=== PATIENT | female | born 1945 | race American Indian/Alaskan Native ===

== ENCOUNTER 2016-08-13 12:09 | Inpatient (IN) | payer MEDICARE ==
[2016-08-13 14:55] LABS: Hematocrit 26.5 % (30.3-42.9); Hemoglobin 8.6 gm/dl (10.1-14.3); Mean Corpuscular HGB Conc 32 % (30-34); Mean Corpuscular Volume 76 fl (79-97); Platelet Count 342 K/mm3 (140-440); Red Cell Distribution Width 17.2 % (13.2-15.2)
[2016-08-13 15:03] LABS: Mean Corpuscular Hemoglobin 25 pg (28-32); White Blood Count 27.7 K/mm3 (4.5-11.0)
[2016-08-13 15:06] LABS: Albumin 3.2 g/dL (3.9-5); Albumin/Globulin Ratio 0.7 %; BUN/Creatinine Ratio 19.54; Bilirubin,Total 0.2 mg/dL (0.1-1.2); Calcium 9.3 mg/dL (8.4-10.2); Potassium 5.6 mmol/L (3.6-5.0); Total Protein 7.5 g/dL (6.3-8.2)
--- NOTE | 2016-08-13 15:52 | Admit Criteria Form ---
Admission Criteria Documentation: RENAL FAILURE, ACUTE Clinical Indications for Admission to Inpatient Care ( Place 'X' for any and all applicable criteria): Admission is indicated for ALL (if I & II) or III of the following [A](2)(3)(4)( 5)(6)(7): [X ]I. Acute renal failure as indicated by ANY ONE of the following: [ X]a) A 3-fold rise in serum creatinine from baseline [X]b) Serum creatinine greater than 4 mg/dL (354 micromoles/L) with an acute rise greater than 0.5 mg/dL (44.2 micromoles/L) [ ]c) Reduction of more than 75% in estimated glomerular filtration rate from baseline [ ]d) Estimated glomerular filtration rate less than 35 mL/min/1.73m2 (0.59mL/sec/1.73m2)in a child up to 18 years of age [ ]e) Anuria indicated by ALL of the following: [ ]i) Adequate volume status [ ]ii) Cessation of urine output indicated by ANY ONE of the following: [ ]1) Urine output less than 0.3 mL/kg/hr for 24 hours [ ]2) Anuria (urine output less than 0.1 mL/kg/ hr) for 12 hours [X ] II. Renal failure cannot be managed in an outpatient setting or observational care setting as indicating by ANY ONE of the following: [ ]a) Altered mental status that is severe or persistent [ ]b) Volume overload or Respiratory distress (eg, clinically significant pulmonary edema) that is severe or persistent [ ]c) Cardiac arrhythmias of immediate concern [ ]d) Hemodynamic instability [X ]e) Clinically significant electrolyte abnormality that requires inpatient care (eg, hyperkalemia with severe ECG findings)[B] [ ]f) Clinically significant metabolic abnormality (eg, acidosis) that is severe or persistent [ ]g) Acute treatment of renal failure (eg, renal replacement therapy) not feasible or appropriate in observational care setting [ ]h) Clinical situation too unstable or uncertain (eg, inadequate urine output, ongoing decline in renal function, etiology unclear) [ ]i) Necessary support and caregiver ability to comply with outpatient treatment cannot be arranged in observation care timeframe (eg, within 24 hours) [ ]j) Other significant finding or clinical condition judged not to be within scope of observation care [ ]III.General contraindications and/or Inappropriate clinical situations for Observational Care in patients with Acute Renal Failure, when ANY ONE of the following is required: [ ]a) Prediction of prolongation of LOS based on ANY ONE of the following may be considered as a contraindication for observational care 2, 3, 4, 5, 6, 7, 8 , 9, 10, 11 [ ]i) Age > 65 yrs. [ ]ii) Patient arriving by ambulance [ ]iii) Patient with high acuity [ ]iv) Patient requiring vital sign monitoring [ ]v) Patient on IV medication [ ]b) Systolic blood pressures 180mmHg 3,12 [ ]c) Patient with altered mental status including delirium and other alteration of consciousness, (3) [ ]d) Patient whose discharge disposition will be to a [facility] home or rehabilitation home should not be managed in Emergency Department Observation Unit. CMS rule requires 3 days hospital stay before such placement.3,13 [ ]e) Patient with failure to thrive due to broad array of etiologies 3, 16,17 [ ]f) Inability to ambulate 3,14 Extended stay beyond goal length of stay may be needed for(13) [ ]a) Continuing uremic complications [ ]b) Care for comorbidities [ ]c) acute renal failure [ ]d) Need for dialysis The original [employer] content created by [employer] has been revised. The portions of the content which have been revised are identified through the use of italic text or in bold, and [facility] has neither reviewed nor approved the modified material. All other unmodified content is copyright [employer]. Please see references footnoted in the original [facility] edition 2016 Admission Criteria Met: Yes
[2016-08-13 16:19] LABS: Blastocytes % (Manual) 0 %
[2016-08-13 16:20] LABS: Basophils % (Manual) 0 % (0.0-1.8); Eosinophils % (Manual) 0 % (0.0-4.3)
[2016-08-13 16:21] LABS: Anisocytosis 1+; Diff Status Complete; Elliptocytes 1+; Hypochromasia 1+; Platelet Estimate Consistent w Auto
[2016-08-13] MEDS ORDERED: NEO-SYNEPHRINE 1 MG, NACL P/F VIAL (10 ML) 9.9 ML IJ**NOT IV ONE (16:52)
[2016-08-13 16:59] LABS: Bacteria,Urine 4+ /HPF (Negative); Bilirubin,Urine NEG (Negative); Blood,Urine MOD (Negative); Ketones,Urine NEG (Negative); Leukocyte Esterase,Urine LG (Negative); Mucus,Urine FEW /HPF; Nitrite,Urine NEG (Negative); Urobilinogen,Urine < 2.0 mg/dL (<2.0)
[2016-08-13] MEDS ORDERED: MORPHINE IV ONE (17:52)
[2016-08-13] MEDS ORDERED: KIONEX PO ONE (17:56)
--- NOTE | 2016-08-13 17:58 | Emergency Department Report ---
HPI - General Chief Complaint: Pain General Time Seen by Provider: 08/13/16 13:45 - HPI HPI: The patient is a 71-year-old female presents for evaluation of abdominal pain and generalized myalgias. The patient reports suprapubic abdominal pain since yesterday, cramping and sharp in quality, moderate to severe, worse with urination. The patient denies CP, dyspnea, vomiting, diarrhea, blood in the stool, dark tarry stool, hematuria, flank pain, genital discharge, inability to pass flatus. ED Past Medical Hx - Past Medical History Previous Medical History?: Yes - Social History Smoking Status: Unknown if ever smoked Substance Use Type: None ED Review of Systems ROS: Stated complaint: ABD PAIN Other details as noted in HPI Constitutional: denies: fever ENT: denies: throat or neck pain Respiratory: denies: cough, shortness of breath Cardiovascular: denies: chest pain Endocrine: denies unexplained weight loss or gain Gastrointestinal: reports abdominal pain denies: nausea Genitourinary: denies: VD Musculoskeletal: denies: leg swelling Skin: denies: rash Neurological: denies: headache Hematological/Lymphatic: denies: easy bleeding or easy bruising Psych: denies sadness or hopelessness Physical Exam - Physical Exam Vital Signs: Vital Signs 08/13/16 08/13/16 12:42 16:06 Temperature 97.9 F 98.1 F Pulse Rate 88 70 Respiratory 22 Rate Blood Pressure 146/70 Blood Pressure 160/101 [Left] O2 Sat by Pulse 100 98 Oximetry Physical Exam: General: well-nourished, well-developed, no acute distress Head: Normocephalic, atraumatic Eyes: normal sclera ENT: Mucous membranes are pale and dry Neck: trachea midline, neck supple, No neck stiffness, no cervical adenopathy Respiratory: Breath sounds equal bilaterally, no wheezing, rales, or rhonchi Cardio: S1 and S2 present, no murmurs, rubs, gallops, capillary refill is delayed Abdomen: Normoactive bowel sounds, soft abdomen, suprapubic tenderness to palpation present, no rigidity, no guarding or rebound tenderness Musc: No pitting edema Skin: No rash Neuro: no facial drooping Psych: flat affect, withdrawn, decreased speech fluency ED Course Vital Signs 08/13/16 08/13/16 12:42 16:06 Temperature 97.9 F 98.1 F Pulse Rate 88 70 Respiratory 22 Rate Blood Pressure 146/70 Blood Pressure 160/101 [Left] O2 Sat by Pulse 100 98 Oximetry ED Medical Decision Making - Lab Data Result diagrams: 08/13/16 14:30 08/13/16 14:30 - Medical Decision Making The patient was seen and examined by myself. The patient is placed on a equipment monitor phototypesetting and continuous pulse ox. On initial evaluation, the patient was found to be in no distress. Evaluation orders were placed. The patient is given IV morphine for pain. Lab results reveal elevated urine WBC 131, positive leukocyte esterase, consistent with acute UTI, significantly elevated creatinine 4, and elevated potassium level. The patient given 1 L normal saline fluid bolus for treatment of dehydration and renal insufficiency, she is given Kayexalate for treatment of hyperkalemia, and IV Rocephin for treatment of UTI. The on-call hospitalist service was contacted. They agreed to admit the patient for further treatment and close monitoring. The ED admit order was placed. The patient was admitted in guarded condition. Critical care attestation.: If time is entered above; I have spent that time in minutes in the direct care of this critically ill patient, excluding procedure time. ED Disposition Clinical Impression: Acute UTI (urinary tract infection), Acute hyperkalemia, Dehydration Acute renal failure Qualifiers: Acute renal failure type: unspecified Qualified Code(s): N17.9 - Acute kidney failure, unspecified Disposition: OP ADMITTED IP TO THIS HOSP Is pt being admited?: Yes Does the pt Need Aspirin: Yes Condition: Stable Time of Disposition: 17:07
[2016-08-13] MEDS ORDERED: BABY ASPIRIN PO ONE (17:59)
[2016-08-13] MEDS ORDERED: ROCEPHIN/NS 1 GM/50 ML 1 GM/50 ML BAG IV ONE (18:00)
[2016-08-13] MEDS ORDERED: NACL 0.9% 1000 ML 1,000 ML IV ONE (18:55)
[2016-08-13] MEDS ORDERED: ZOFRAN IV PRN (19:59)
--- NOTE | 2016-08-13 20:14 | History and Physical Report ---
History of Present Illness Date of examination: 08/13/16 Date of admission: 08/13/16 18:19 Chief complaint: Weakness History of present illness: Patient is 71 yo woman from [facility] with a plethora of co-morbidites (no prior records in EMR) who presents with failure to thrive, weakness and refusing to eat. At this time she is not giving any history. She just looks me. Medications and Allergies Allergies Allergy/AdvReac Type Severity Reaction Status Date / Time No Known Allergies Allergy Unverified 08/13/16 15:50 Active Meds: Active Medications Acetaminophen (Tylenol) 650 mg PO Q6H PRN PRN Reason: Non Cardiac Pain or Temp>100.5 Acetaminophen/Hydrocodone Bitart (Ava 5/325) 1 each PO Q4H PRN PRN Reason: Pain, Moderate (4-6) Dextrose/Sodium Chloride (D5ns) 1,000 mls @ 125 mls/hr IV DIRECT JEAN PIERRE Piperacillin Sod/Tazobactam Sod (Zosyn/Ns 4.5gm/100ml) mls @ 200 mls/hr IV Q8HR JEAN PIERRE PRN Reason: Protocol Ondansetron HCl (Zofran) 4 mg IV Q4H PRN PRN Reason: Nausea And Vomiting Review of Systems ROS unobtainable: due to mental status Exam - Physical Exam Narrative exam: GEN: severe cachetic, i believe the bmi is wrong, NAD, AWAKE, ALERT, ORIENTATED 1, she thinks the year is 2019 HEENT: NCAT, PERRL, EOMI, OP CLEAR, suncken temples NECK: SUPPLE, NO THYROMEGALY, NO JVD, NO LAD CVS: regular tachycardia, NORMAL S1S2 LUNGS/CHEST: CTA B, NORMAL CHEST EXPANSION B, GOOD AIR ENTRY B ABD: distended, suprapubic tenderness GBS, NO REBOUND OR GUARDING EXT/SKIN: NO SIGNIFICANT EDEMA OR RASH NEURO: CN 2-12 GROSSLY INTACT, NOt following commands PSY: CALM - Constitutional Vitals: Temp Pulse Resp BP Pulse Ox 98.7 F 75 21 169/57 94 08/13/16 18:25 08/13/16 18:25 08/13/16 19:10 08/13/16 19:10 08/13/16 19:10 Results - Labs CBC & Chem 7: 08/13/16 14:30 08/13/16 14:30 Assessment and Plan Patient is 71 yo woman from [facility] with a plethora of co-morbidites (no prior records in [facility] EMR) who presents with failure to thrive, weakness and refusing to eat. At this time she is not giving any history. She just looks me. Per long-term records she has history of falling, gait abnormality, CVA, acute renal failure, hypotension hypertension retention of urine, DVT or leg, dyslipidemia, allergic retinitis, hypomagnesemia, GERD, rheumatoid arthritis, rhabdomyolysis, hypernatremia, metabolic encephalopathy, bladder neck obstruction, hydronephrosis, UTI, moderate protein calorie malnutrition, cachexia and anemia. 1. UTI with sepsis: iv zosyn, and cultures 2. Acute encephalopathy 3. ARF: place [facility], get renal us 4. Abd. distension: ct ab pelvis, xray from nursing shows a pelvic mass 5. Hyperkalemia, mild given kayexalate: recheck in am
[2016-08-13] MEDS ORDERED: MORPHINE ONE (20:43)
[2016-08-13] MEDS ORDERED: ZOSYN/NS 4.5GM/100ML 100 ML IV SCH (22:00)
--- NOTE | 2016-08-13 22:12 | Cat Scan Report ---
FINAL REPORT PROCEDURE: CT ABDOMEN PELVIS WO CON TECHNIQUE: Computerized axial tomography of the abdomen and pelvis was performed without intravenous contrast. This study is performed without intravascular contrast material and its sensitivity for abdominal and pelvic pathology, including neoplasms, inflammation, abscess, free fluid, thrombosis, arterial dissection and infarction, is reduced compared with a contrast enhanced study. HISTORY: abd pain COMPARISON: No prior studies are available for comparison. FINDINGS: Likely areas of atelectasis and scarring are seen in the lower lungs. There is mild subcutaneous emphysema in the left lower breast. No definite subcutaneous emphysema is seen in the abdomen and no free intraperitoneal air is identified. The evaluation is limited as there is massive dilation of the urinary bladder which measures 16.8 x 23.2 x 13.0 cm. No bladder wall thickening is seen. The distended bladder has prominent mass effect upon bowel loops displacing them and there is likely effacement of bowel loops in the left side of the abdomen. There increased air within bowel loops and there may be partial colonic obstruction from the dilated bladder as no air or fecal material is seen in the rectosigmoid colon or much of the lower descending colon. Prominent bilateral hydronephrosis is seen which may be from reflux but could be compressive phenomenon from the enlarged bladder. Spleen and liver display no abnormalities. No gallbladder abnormality is seen. No pancreatic abnormality is seen. Adrenal glands and abdominal aorta are normal in size. There is a minimally displaced fracture of the posterior aspect of the right 12th rib. IMPRESSION: Prominent dilation of the urinary bladder is seen without wall thickening. There is associated prominent bilateral hydronephrosis which could be from reflux or possibly a compressive phenomenon near the UVJ. There is likely at least partial obstruction of the rectosigmoid colon due to the distended bladder and increased air is seen within small bowel loops and large bowel loops elsewhere. There is a small amount of subcutaneous emphysema in the inferior left side of the breast of uncertain etiology There is a mildly displaced fracture of the posterior aspect of the right 12th rib.
--- NOTE | 2016-08-13 22:32 | Ultrasound Report ---
FINAL REPORT PROCEDURE: US RENAL BILAT TECHNIQUE: Real-time sonography in multiple planes of the kidneys, ureters and urinary bladder was performed with image documentation. CPT 49581 HISTORY: aRF COMPARISON: CT exam from the same day FINDINGS: RIGHT kidney: Prominent hydronephrosis. Length: 11.9 cm. LEFT kidney: Prominent hydronephrosis. Length: 11cm. Bladder: Probably dilated up to 20.3 x 13.2 x 15.4 cm. In the inferior aspect of the bladder there may be a hypovascular mass. There is questionable eccentric wall thickening to the urinary bladder seen on CT study posteriorly and on the left inferiorly. IMPRESSION: Possible mass is seen in the lower bladder. Less likely this is debris. Prominent bilateral hydronephrosis is seen.
[2016-08-14] MEDS: ZOSYN/NS 2.25 GM/50ML 2.25 GM/50 ML BAG IV SCH ×2 (00:28→16:22)
[2016-08-14] MEDS: D5NS 1,000 ML IV SCH (00:29)
[2016-08-14] MEDS ORDERED: BABY ASPIRIN ONE (00:40)
[2016-08-14] MEDS ORDERED: KIONEX ONE (00:40)
[2016-08-14] MEDS: NORCO 5/325 PO PRN (00:48)
[2016-08-14 05:13] LABS: Hematocrit 25.1 % (30.3-42.9); Hemoglobin 8.2 gm/dl (10.1-14.3); Mean Corpuscular HGB Conc 33 % (30-34); Mean Corpuscular Volume 77 fl (79-97); Platelet Count 320 K/mm3 (140-440); Red Blood Count 3.28 M/mm3 (3.65-5.03); Red Cell Distribution Width 17.9 % (13.2-15.2)
[2016-08-14 05:18] LABS: Mean Corpuscular Hemoglobin 25 pg (28-32); White Blood Count 26.7 K/mm3 (4.5-11.0)
[2016-08-14 05:33] LABS: BUN/Creatinine Ratio 17.8; Calcium 8.9 mg/dL (8.4-10.2); Chloride 97.5 mmol/L (98-107); Potassium 5.2 mmol/L (3.6-5.0)
--- NOTE | 2016-08-14 09:12 | XRay Report ---
ABDOMINAL SERIES: INDICATION: Abdominal pain. COMPARISON: None similar at this institution. FINDINGS: Abdominal series, 3 radiographs, demonstrate a large, approximately 25 x 20 cm hazy suspected mass occupying the entire pelvis and much of the abdomen inferiorly, rising to about L3 level. It also appears to displace the bowel loops. Visualized bowel gas pattern is nonobstructive. No pneumatosis or pneumoperitoneum. Atherosclerotic vascular calcifications noted. Chest radiograph demonstrates normal cardiomediastinal silhouette, aortic knob calcifications and clear lungs, given the inspiration. EKG leads. Demineralized bones with multilevel spinal degenerative changes. CONCLUSION: 1. Large soft tissue mass within the lower abdomen and pelvis noted displacing the bowel loops, as detailed above, and may be further characterized with CT, as warranted. 2. Few other incidental findings, as described. Thank you for the opportunity to participate in this patient's care.
--- NOTE | 2016-08-14 19:50 | Progress Note ---
Assessment and Plan - Patient Problems (1) Sepsis Current Visit: Yes Status: Acute Qualifiers: Sepsis type: S Plan to address problem: Sepsis protocol, IV abx, blood cultures, supportive care, (2) Acute UTI (urinary tract infection) Current Visit: Yes Status: Acute Plan to address problem: IV abx, (3) Acute renal failure Current Visit: Yes Status: Acute Qualifiers: Acute renal failure type: unspecified Qualified Code(s): N17.9 - Acute kidney failure, unspecified Plan to address problem: IVF replacement, monitor uop q shift, (4) DVT prophylaxis Current Visit: Yes Status: Acute History Interval history: Pt lying in bed, chronically ill appearing, Pt stable overnight. Hospitalist Physical - Constitutional Vitals: Temp Pulse Resp BP Pulse Ox 97.9 F 93 H 20 135/64 99 08/14/16 16:15 08/14/16 16:15 08/14/16 16:15 08/14/16 16:15 08/14/16 16:15 General appearance: Present: mild distress - EENT Eyes: Present: PERRL ENT: hearing intact - Neck Neck: Present: supple - Respiratory Respiratory: bilateral: diminished - Cardiovascular Rhythm: regular Heart Sounds: Present: S1 & S2 - Extremities Extremities: no ischemia Peripheral Pulses: within normal limits - Abdominal General gastrointestinal: soft, non-tender, non-distended - Integumentary Integumentary: Present: clear, dry, decreased turgor - Psychiatric Psychiatric: no intact judgment & insight, no memory intact - Neurologic Neurologic: CNII-XII intact, no gait normal Results - Labs CBC & Chem 7: 08/15/16 10:57 08/14/16 04:42 Labs: Laboratory Last Values WBC 26.7 K/mm3 (4.5-11.0) H 08/14/16 04:42 RBC 3.28 M/mm3 (3.65-5.03) L 08/14/16 04:42 Hgb 8.2 gm/dl (10.1-14.3) L 08/14/16 04:42 Hct 25.1 % (30.3-42.9) L 08/14/16 04:42 MCV 77 fl (79-97) L 08/14/16 04:42 MCH 25 pg (28-32) L 08/14/16 04:42 MCHC 33 % (30-34) 08/14/16 04:42 RDW 17.9 % (13.2-15.2) H 08/14/16 04:42 Plt Count 320 K/mm3 (140-440) 08/14/16 04:42 Add Manual Diff Complete 08/13/16 14:30 Total Counted 200 08/13/16 14:30 Seg Neutrophils % Order Editor 08/13/16 14:30 Seg Neuts % (Manual) 84.0 % (40.0-70.0) H 08/13/16 14:30 Band Neutrophils % 12.0 % 08/13/16 14:30 Lymphocytes % (Manual) 2.0 % (13.4-35.0) L 08/13/16 14:30 Reactive Lymphs % (Man) 0 % 08/13/16 14:30 Monocytes % (Manual) 2.0 % (0.0-7.3) 08/13/16 14:30 Eosinophils % (Manual) 0 % (0.0-4.3) 08/13/16 14:30 Basophils % (Manual) 0 % (0.0-1.8) 08/13/16 14:30 Metamyelocytes % 0 % 08/13/16 14:30 Myelocytes % 0 % 08/13/16 14:30 Promyelocytes % 0 % 08/13/16 14:30 Blast Cells % 0 % 08/13/16 14:30 Nucleated RBC % Not Reportable 08/13/16 14:30 Seg Neutrophils # Man 23.3 K/mm3 (1.8-7.7) H 08/13/16 14:30 Band Neutrophils # 3.3 K/mm3 08/13/16 14:30 Lymphocytes # (Manual) 0.6 K/mm3 (1.2-5.4) L 08/13/16 14:30 Abs React Lymphs (Man) 0.0 K/mm3 08/13/16 14:30 Monocytes # (Manual) 0.6 K/mm3 (0.0-0.8) 08/13/16 14:30 Eosinophils # (Manual) 0.0 K/mm3 (0.0-0.4) 08/13/16 14:30 Basophils # (Manual) 0.0 K/mm3 (0.0-0.1) 08/13/16 14:30 Metamyelocytes # 0.0 K/mm3 08/13/16 14:30 Myelocytes # 0.0 K/mm3 08/13/16 14:30 Promyelocytes # 0.0 K/mm3 08/13/16 14:30 Blast Cells # 0.0 K/mm3 08/13/16 14:30 WBC Morphology Not Reportable 08/13/16 14:30 Hypersegmented Neuts Not Reportable 08/13/16 14:30 Hyposegmented Neuts Not Reportable 08/13/16 14:30 Hypogranular Neuts Not Reportable 08/13/16 14:30 Smudge Cells Not Reportable 08/13/16 14:30 Toxic Granulation Not Reportable 08/13/16 14:30 Toxic Vacuolation Not Reportable 08/13/16 14:30 Dohle Bodies Not Reportable 08/13/16 14:30 Pelger-Huet Anomaly Not Reportable 08/13/16 14:30 Celestine Rods Not Reportable 08/13/16 14:30 Platelet Estimate Consistent w auto 08/13/16 14:30 Clumped Platelets Not Reportable 08/13/16 14:30 Plt Clumps, EDTA Not Reportable 08/13/16 14:30 Large Platelets Not Reportable 08/13/16 14:30 Giant Platelets Not Reportable 08/13/16 14:30 Platelet Satelliting Not Reportable 08/13/16 14:30 Plt Morphology Comment Not Reportable 08/13/16 14:30 RBC Morphology Not Reportable 08/13/16 14:30 Dimorphic RBCs Not Reportable 08/13/16 14:30 Polychromasia Not Reportable 08/13/16 14:30 Hypochromasia 1+ 08/13/16 14:30 Poikilocytosis Not Reportable 08/13/16 14:30 Anisocytosis 1+ 08/13/16 14:30 Microcytosis Not Reportable 08/13/16 14:30 Macrocytosis Not Reportable 08/13/16 14:30 Spherocytes Not Reportable 08/13/16 14:30 Pappenheimer Bodies Not Reportable 08/13/16 14:30 Sickle Cells Not Reportable 08/13/16 14:30 Target Cells Not Reportable 08/13/16 14:30 Tear Drop Cells Not Reportable 08/13/16 14:30 Ovalocytes Not Reportable 08/13/16 14:30 Helmet Cells Not Reportable 08/13/16 14:30 Villalobos-Orovada Bodies Not Reportable 08/13/16 14:30 Waverly Rings Not Reportable 08/13/16 14:30 Shanel Cells Not Reportable 08/13/16 14:30 Bite Cells Not Reportable 08/13/16 14:30 Crenated Cell Not Reportable 08/13/16 14:30 Elliptocytes 1+ 08/13/16 14:30 Acanthocytes (Spur) Not Reportable 08/13/16 14:30 Rouleaux Not Reportable 08/13/16 14:30 Hemoglobin C Crystals Not Reportable 08/13/16 14:30 Schistocytes Not Reportable 08/13/16 14:30 Malaria parasites Not Reportable 08/13/16 14:30 Isauro Bodies Not Reportable 08/13/16 14:30 Hem Pathologist Commnt No 08/13/16 14:30 Sodium 133 mmol/L (137-145) L 08/14/16 04:42 Potassium 5.2 mmol/L (3.6-5.0) H 08/14/16 04:42 Chloride 97.5 mmol/L (98-107) L 08/14/16 04:42 Carbon Dioxide 16 mmol/L (22-30) L 08/14/16 04:42 Anion Gap 25 mmol/L 08/14/16 04:42 BUN 89 mg/dL (7-17) H 08/14/16 04:42 Creatinine 5.0 mg/dL (0.7-1.2) H 08/14/16 04:42 Estimated GFR 10 ml/min 08/14/16 04:42 BUN/Creatinine Ratio 17.80 % 08/14/16 04:42 Glucose 157 mg/dL (65-100) H 08/14/16 04:42 Calcium 8.9 mg/dL (8.4-10.2) 08/14/16 04:42 Total Bilirubin 0.2 mg/dL (0.1-1.2) 08/13/16 14:30 AST 9 units/L (5-40) 08/13/16 14:30 ALT 9 units/L (7-56) 08/13/16 14:30 Alkaline Phosphatase 161 units/L (35-129) H 08/13/16 14:30 Total Creatine Kinase 52 units/L (30-135) 08/13/16 14:30 NT-Pro-B Natriuret Pep 495.2 pg/mL (0-900) 08/13/16 14:30 Total Protein 7.5 g/dL (6.3-8.2) 08/13/16 14:30 Albumin 3.2 g/dL (3.9-5) L 08/13/16 14:30 Albumin/Globulin Ratio 0.7 % 08/13/16 14:30 Urine Color Yellow (Yellow) 08/13/16 16:42 Urine Turbidity Cloudy (Clear) 08/13/16 16:42 Urine pH 7.0 (5.0-7.0) 08/13/16 16:42 Ur Specific Taft 1.009 (1.003-1.030) 08/13/16 16:42 Urine Protein 100 mg/dl mg/dL (Negative) 08/13/16 16:42 Urine Glucose (UA) Neg mg/dL (Negative) 08/13/16 16:42 Urine Ketones Neg mg/dL (Negative) 08/13/16 16:42 Urine Blood Mod (Negative) 08/13/16 16:42 Urine Nitrite Neg (Negative) 08/13/16 16:42 Urine Bilirubin Neg (Negative) 08/13/16 16:42 Urine Urobilinogen < 2.0 mg/dL (<2.0) 08/13/16 16:42 Ur Leukocyte Esterase Lg (Negative) 08/13/16 16:42 Urine WBC (Auto) 133.0 /HPF (0.0-6.0) H 08/13/16 16:42 Urine RBC (Auto) 5.0 /HPF (0.0-6.0) 08/13/16 16:42 U Epithel Cells (Auto) 1.0 /HPF (0-13.0) 08/13/16 16:42 Urine Bacteria (Auto) 4+ /HPF (Negative) 08/13/16 16:42 Urine Mucus Few /HPF 08/13/16 16:42
[2016-08-14] MEDS ORDERED: MORPHINE IV ONE (20:43)
[2016-08-15] MEDS: ZOSYN/NS 2.25 GM/50ML 2.25 GM/50 ML BAG IV SCH ×5 (00:53→17:57)
[2016-08-15] MEDS: D5NS 1,000 ML IV SCH (01:08)
[2016-08-15] MEDS: MORPHINE IV PRN ×4 (01:55→20:22)
[2016-08-15] MEDS ORDERED: NACL 0.9% IV ONE (10:44)
[2016-08-15] MEDS ORDERED: VANCOMYCIN IV ONE (10:44)
[2016-08-15] MEDS ORDERED: VANCOMYCIN PHARMACY TO DOSE IV SCH (11:00)
[2016-08-15 11:13] LABS: Hematocrit 21.1 % (30.3-42.9); Hemoglobin 6.9 gm/dl (10.1-14.3); Mean Corpuscular HGB Conc 33 % (30-34); Mean Corpuscular Volume 77 fl (79-97); Platelet Count 196 K/mm3 (140-440); Red Blood Count 2.73 M/mm3 (3.65-5.03); Red Cell Distribution Width 17.8 % (13.2-15.2)
[2016-08-15 11:20] LABS: Mean Corpuscular Hemoglobin 25 pg (28-32); White Blood Count 48.3 K/mm3 (4.5-11.0)
[2016-08-15] MEDS ORDERED: LEVAQUIN 750MG/150ML 750 MG/150 ML BAG IV ONE (12:00)
[2016-08-15 12:17] LABS: Basophils % (Manual) 0 % (0.0-1.8); Blastocytes % (Manual) 0 %; Eosinophils % (Manual) 0 % (0.0-4.3)
[2016-08-15 12:19] LABS: Hypochromasia 1+
[2016-08-15 12:20] LABS: Burr Cells Few; Diff Status Complete; Target Cells Few
[2016-08-15] MEDS ORDERED: VANCOMYCIN/NS 1 GM/250 ML 1 GM/250 ML BAG IV ONE (13:00)
[2016-08-15] MEDS: MAXIPIME/NS 1 GM/100 ML 1 GM/100 ML BAG IV SCH ×2 (15:50→17:57)
[2016-08-16] MEDS: ZOSYN/NS 2.25 GM/50ML 2.25 GM/50 ML BAG IV SCH (00:37)
[2016-08-16] MEDS: MORPHINE IV PRN ×2 (06:26→13:26)
[2016-08-16] MEDS: MAXIPIME/NS 1 GM/100 ML 1 GM/100 ML BAG IV SCH ×2 (06:27)
--- NOTE | 2016-08-16 07:47 | Progress Note ---
Assessment and Plan - Patient Problems (1) Sepsis Current Visit: Yes Status: Acute Qualifiers: Sepsis type: S Plan to address problem: Sepsis protocol, IV abx, blood cultures, supportive care, (2) Acute UTI (urinary tract infection) Current Visit: Yes Status: Acute Plan to address problem: IV abx, (3) Acute renal failure Current Visit: Yes Status: Acute Qualifiers: Acute renal failure type: unspecified Qualified Code(s): N17.9 - Acute kidney failure, unspecified Plan to address problem: IVF replacement, monitor uop q shift, (4) DVT prophylaxis Current Visit: Yes Status: Acute History Interval history: Pt lying in bed, chronically ill appearing, Pt stable overnight. worsening leukocytosis. Hospitalist Physical - Constitutional Vitals: Temp Pulse Resp BP Pulse Ox 98.2 F 89 20 117/66 98 08/15/16 12:59 08/16/16 06:04 08/16/16 06:26 08/16/16 06:04 08/16/16 06:04 General appearance: Present: mild distress - EENT Eyes: Present: PERRL - Neck Neck: Present: supple - Respiratory Respiratory: bilateral: diminished - Cardiovascular Rhythm: regular Heart Sounds: Present: S1 & S2 - Extremities Extremities: no ischemia Peripheral Pulses: within normal limits - Abdominal General gastrointestinal: soft, non-tender, non-distended - Integumentary Integumentary: Present: clear, dry - Psychiatric Psychiatric: no intact judgment & insight, no memory intact - Neurologic Neurologic: no gait normal Results - Labs CBC & Chem 7: 08/15/16 10:57 08/14/16 04:42 Labs: Laboratory Last Values WBC 48.3 K/mm3 (4.5-11.0) H* 08/15/16 10:57 RBC 2.73 M/mm3 (3.65-5.03) L 08/15/16 10:57 Hgb 6.9 gm/dl (10.1-14.3) L 08/15/16 10:57 Hct 21.1 % (30.3-42.9) L 08/15/16 10:57 MCV 77 fl (79-97) L 08/15/16 10:57 MCH 25 pg (28-32) L 08/15/16 10:57 MCHC 33 % (30-34) 08/15/16 10:57 RDW 17.8 % (13.2-15.2) H 08/15/16 10:57 Plt Count 196 K/mm3 (140-440) 08/15/16 10:57 Add Manual Diff Complete 08/15/16 10:57 Total Counted 200 08/15/16 10:57 Seg Neutrophils % Rubber Turner 08/15/16 10:57 Seg Neuts % (Manual) 85.5 % (40.0-70.0) H 08/15/16 10:57 Band Neutrophils % 11.5 % 08/15/16 10:57 Lymphocytes % (Manual) 1.0 % (13.4-35.0) L 08/15/16 10:57 Reactive Lymphs % (Man) 0 % 08/15/16 10:57 Monocytes % (Manual) 2.0 % (0.0-7.3) 08/15/16 10:57 Eosinophils % (Manual) 0 % (0.0-4.3) 08/15/16 10:57 Basophils % (Manual) 0 % (0.0-1.8) 08/15/16 10:57 Metamyelocytes % 0 % 08/15/16 10:57 Myelocytes % 0 % 08/15/16 10:57 Promyelocytes % 0 % 08/15/16 10:57 Blast Cells % 0 % 08/15/16 10:57 Nucleated RBC % Not Reportable 08/15/16 10:57 Seg Neutrophils # Man 41.3 K/mm3 (1.8-7.7) H 08/15/16 10:57 Band Neutrophils # 5.6 K/mm3 08/15/16 10:57 Lymphocytes # (Manual) 0.5 K/mm3 (1.2-5.4) L 08/15/16 10:57 Abs React Lymphs (Man) 0.0 K/mm3 08/15/16 10:57 Monocytes # (Manual) 1.0 K/mm3 (0.0-0.8) H 08/15/16 10:57 Eosinophils # (Manual) 0.0 K/mm3 (0.0-0.4) 08/15/16 10:57 Basophils # (Manual) 0.0 K/mm3 (0.0-0.1) 08/15/16 10:57 Metamyelocytes # 0.0 K/mm3 08/15/16 10:57 Myelocytes # 0.0 K/mm3 08/15/16 10:57 Promyelocytes # 0.0 K/mm3 08/15/16 10:57 Blast Cells # 0.0 K/mm3 08/15/16 10:57 WBC Morphology Not Reportable 08/15/16 10:57 Hypersegmented Neuts Not Reportable 08/15/16 10:57 Hyposegmented Neuts Not Reportable 08/15/16 10:57 Hypogranular Neuts Not Reportable 08/15/16 10:57 Smudge Cells Not Reportable 08/15/16 10:57 Toxic Granulation Not Reportable 08/15/16 10:57 Toxic Vacuolation Not Reportable 08/15/16 10:57 Dohle Bodies Not Reportable 08/15/16 10:57 Pelger-Huet Anomaly Not Reportable 08/15/16 10:57 Celestine Rods Not Reportable 08/15/16 10:57 Platelet Estimate Appears normal 08/15/16 10:57 Clumped Platelets Not Reportable 08/15/16 10:57 Plt Clumps, EDTA Not Reportable 08/15/16 10:57 Large Platelets Not Reportable 08/15/16 10:57 Giant Platelets Not Reportable 08/15/16 10:57 Platelet Satelliting Not Reportable 08/15/16 10:57 Plt Morphology Comment Not Reportable 08/15/16 10:57 RBC Morphology Not Reportable 08/15/16 10:57 Dimorphic RBCs Not Reportable 08/15/16 10:57 Polychromasia Not Reportable 08/15/16 10:57 Hypochromasia 1+ 08/15/16 10:57 Poikilocytosis Not Reportable 08/15/16 10:57 Anisocytosis Not Reportable 08/15/16 10:57 Microcytosis Not Reportable 08/15/16 10:57 Macrocytosis Not Reportable 08/15/16 10:57 Spherocytes Not Reportable 08/15/16 10:57 Pappenheimer Bodies Not Reportable 08/15/16 10:57 Sickle Cells Not Reportable 08/15/16 10:57 Target Cells Few 08/15/16 10:57 Tear Drop Cells Not Reportable 08/15/16 10:57 Ovalocytes Not Reportable 08/15/16 10:57 Helmet Cells Not Reportable 08/15/16 10:57 [place] Bodies Not Reportable 08/15/16 10:57 [place] Rings Not Reportable 08/15/16 10:57 [place] Cells Few 08/15/16 10:57 Bite Cells Not Reportable 08/15/16 10:57 Crenated Cell Not Reportable 08/15/16 10:57 Elliptocytes Not Reportable 08/15/16 10:57 Acanthocytes (Spur) Not Reportable 08/15/16 10:57 Rouleaux Not Reportable 08/15/16 10:57 Hemoglobin C Crystals Not Reportable 08/15/16 10:57 Schistocytes Not Reportable 08/15/16 10:57 Malaria parasites Not Reportable 08/15/16 10:57 Isauro Bodies Not Reportable 08/15/16 10:57 Hem Pathologist Commnt Sent to pathology 08/15/16 10:57 Sodium 133 mmol/L (137-145) L 08/14/16 04:42 Potassium 5.2 mmol/L (3.6-5.0) H 08/14/16 04:42 Chloride 97.5 mmol/L (98-107) L 08/14/16 04:42 Carbon Dioxide 16 mmol/L (22-30) L 08/14/16 04:42 Anion Gap 25 mmol/L 08/14/16 04:42 BUN 89 mg/dL (7-17) H 08/14/16 04:42 Creatinine 5.0 mg/dL (0.7-1.2) H 08/14/16 04:42 Estimated GFR 10 ml/min 08/14/16 04:42 BUN/Creatinine Ratio 17.80 % 08/14/16 04:42 Glucose 157 mg/dL (65-100) H 08/14/16 04:42 POC Glucose 114 (70-105) H 08/14/16 20:50 Lactic Acid 2.5 mmol/L (0.7-2.0) H* 08/15/16 18:00 Calcium 8.9 mg/dL (8.4-10.2) 08/14/16 04:42 Total Bilirubin 0.2 mg/dL (0.1-1.2) 08/13/16 14:30 AST 9 units/L (5-40) 08/13/16 14:30 ALT 9 units/L (7-56) 08/13/16 14:30 Alkaline Phosphatase 161 units/L (35-129) H 08/13/16 14:30 Total Creatine Kinase 52 units/L (30-135) 08/13/16 14:30 NT-Pro-B Natriuret Pep 495.2 pg/mL (0-900) 08/13/16 14:30 Total Protein 7.5 g/dL (6.3-8.2) 08/13/16 14:30 Albumin 3.2 g/dL (3.9-5) L 08/13/16 14:30 Albumin/Globulin Ratio 0.7 % 08/13/16 14:30 Urine Color Yellow (Yellow) 08/13/16 16:42 Urine Turbidity Cloudy (Clear) 08/13/16 16:42 Urine pH 7.0 (5.0-7.0) 08/13/16 16:42 Ur Specific [place] 1.009 (1.003-1.030) 08/13/16 16:42 Urine Protein 100 mg/dl mg/dL (Negative) 08/13/16 16:42 Urine Glucose (UA) Neg mg/dL (Negative) 08/13/16 16:42 Urine Ketones Neg mg/dL (Negative) 08/13/16 16:42 Urine Blood Mod (Negative) 08/13/16 16:42 Urine Nitrite Neg (Negative) 08/13/16 16:42 Urine Bilirubin Neg (Negative) 08/13/16 16:42 Urine Urobilinogen < 2.0 mg/dL (<2.0) 08/13/16 16:42 Ur Leukocyte Esterase Lg (Negative) 08/13/16 16:42 Urine WBC (Auto) 133.0 /HPF (0.0-6.0) H 08/13/16 16:42 Urine RBC (Auto) 5.0 /HPF (0.0-6.0) 08/13/16 16:42 U Epithel Cells (Auto) 1.0 /HPF (0-13.0) 08/13/16 16:42 Urine Bacteria (Auto) 4+ /HPF (Negative) 08/13/16 16:42 Urine Mucus Few /HPF 08/13/16 16:42
[2016-08-16] MEDS: D5NS 1,000 ML IV SCH ×2 (10:48→19:37)
[2016-08-16 11:34] LABS: Hematocrit 23.1 % (30.3-42.9); Hemoglobin 7.2 gm/dl (10.1-14.3); Mean Corpuscular HGB Conc 31 % (30-34); Mean Corpuscular Volume 78 fl (79-97); Platelet Count 219 K/mm3 (140-440); Red Blood Count 2.95 M/mm3 (3.65-5.03); Red Cell Distribution Width 18.2 % (13.2-15.2)
[2016-08-16 11:35] LABS: Mean Corpuscular Hemoglobin 25 pg (28-32); White Blood Count 38.9 K/mm3 (4.5-11.0)
[2016-08-16 11:50] LABS: Calcium 7.9 mg/dL (8.4-10.2); Chloride 119.7 mmol/L (98-107); Potassium 4.4 mmol/L (3.6-5.0)
[2016-08-16 12:10] LABS: Basophils % (Manual) 0 % (0.0-1.8); Blastocytes % (Manual) 0 %; Burr Cells Few; Eosinophils % (Manual) 0 % (0.0-4.3); Hypochromasia 1+; Target Cells Few
[2016-08-16 12:11] LABS: Anisocytosis 1+; Diff Status Complete; Ovalocytes 1+; Poikilocytosis 1+; Polychromasia Few
--- NOTE | 2016-08-16 16:38 | Progress Note ---
Assessment and Plan - Patient Problems (1) Sepsis Current Visit: Yes Status: Acute Qualifiers: Sepsis type: S Plan to address problem: Sepsis protocol, IV abx, blood cultures, supportive care, (2) Acute UTI (urinary tract infection) Current Visit: Yes Status: Acute Plan to address problem: IV abx, (3) Acute renal failure Current Visit: Yes Status: Acute Qualifiers: Acute renal failure type: unspecified Qualified Code(s): N17.9 - Acute kidney failure, unspecified Plan to address problem: IVF replacement, monitor uop q shift, (4) Encephalopathy acute Current Visit: Yes Status: Acute Plan to address problem: Metabolic: Treat sepsis. supportive care, bed alarm, fall precautions. (5) DVT prophylaxis Current Visit: Yes Status: Acute History Interval history: Pt lying in bed, chronically ill appearing, Pt stable overnight. Pt confused. leukocytosis improving. Hospitalist Physical - Constitutional Vitals: Temp Pulse Resp BP Pulse Ox 98.0 F 87 18 129/59 100 08/16/16 13:29 08/16/16 13:29 08/16/16 13:29 08/16/16 13:29 08/16/16 13:29 General appearance: Present: mild distress, cachectic - EENT Eyes: Present: PERRL ENT: hearing intact - Respiratory Respiratory: bilateral: diminished - Cardiovascular Rhythm: regular Heart Sounds: Present: S1 & S2 - Extremities Extremities: no ischemia - Abdominal General gastrointestinal: soft, non-tender, non-distended - Integumentary Integumentary: Present: clear, dry - Psychiatric Psychiatric: no intact judgment & insight, no memory intact Results - Labs CBC & Chem 7: 08/16/16 11:17 08/16/16 11:17 Labs: Laboratory Last Values WBC 38.9 K/mm3 (4.5-11.0) H 08/16/16 11:17 RBC 2.95 M/mm3 (3.65-5.03) L 08/16/16 11:17 Hgb 7.2 gm/dl (10.1-14.3) L 08/16/16 11:17 Hct 23.1 % (30.3-42.9) L 08/16/16 11:17 MCV 78 fl (79-97) L 08/16/16 11:17 MCH 25 pg (28-32) L 08/16/16 11:17 MCHC 31 % (30-34) 08/16/16 11:17 RDW 18.2 % (13.2-15.2) H 08/16/16 11:17 Plt Count 219 K/mm3 (140-440) 08/16/16 11:17 Add Manual Diff Complete 08/16/16 11:17 Total Counted 200 08/16/16 11:17 Seg Neutrophils % Garment Cutter 08/16/16 11:17 Seg Neuts % (Manual) 77.5 % (40.0-70.0) H 08/16/16 11:17 Band Neutrophils % 16.5 % 08/16/16 11:17 Lymphocytes % (Manual) 2.0 % (13.4-35.0) L 08/16/16 11:17 Reactive Lymphs % (Man) 0 % 08/16/16 11:17 Monocytes % (Manual) 2.0 % (0.0-7.3) 08/16/16 11:17 Eosinophils % (Manual) 0 % (0.0-4.3) 08/16/16 11:17 Basophils % (Manual) 0 % (0.0-1.8) 08/16/16 11:17 Metamyelocytes % 2.0 % 08/16/16 11:17 Myelocytes % 0 % 08/16/16 11:17 Promyelocytes % 0 % 08/16/16 11:17 Blast Cells % 0 % 08/16/16 11:17 Nucleated RBC % Not Reportable 08/16/16 11:17 Seg Neutrophils # Man 30.1 K/mm3 (1.8-7.7) H 08/16/16 11:17 Band Neutrophils # 6.4 K/mm3 08/16/16 11:17 Lymphocytes # (Manual) 0.8 K/mm3 (1.2-5.4) L 08/16/16 11:17 Abs React Lymphs (Man) 0.0 K/mm3 08/16/16 11:17 Monocytes # (Manual) 0.8 K/mm3 (0.0-0.8) 08/16/16 11:17 Eosinophils # (Manual) 0.0 K/mm3 (0.0-0.4) 08/16/16 11:17 Basophils # (Manual) 0.0 K/mm3 (0.0-0.1) 08/16/16 11:17 Metamyelocytes # 0.8 K/mm3 08/16/16 11:17 Myelocytes # 0.0 K/mm3 08/16/16 11:17 Promyelocytes # 0.0 K/mm3 08/16/16 11:17 Blast Cells # 0.0 K/mm3 08/16/16 11:17 WBC Morphology Not Reportable 08/16/16 11:17 Hypersegmented Neuts Not Reportable 08/16/16 11:17 Hyposegmented Neuts Not Reportable 08/16/16 11:17 Hypogranular Neuts Not Reportable 08/16/16 11:17 Smudge Cells Not Reportable 08/16/16 11:17 Toxic Granulation Not Reportable 08/16/16 11:17 Toxic Vacuolation Not Reportable 08/16/16 11:17 Dohle Bodies Not Reportable 08/16/16 11:17 Pelger-Huet Anomaly Not Reportable 08/16/16 11:17 Celestine Rods Not Reportable 08/16/16 11:17 Platelet Estimate Appears normal 08/16/16 11:17 Clumped Platelets Not Reportable 08/16/16 11:17 Plt Clumps, EDTA Not Reportable 08/16/16 11:17 Large Platelets Not Reportable 08/16/16 11:17 Giant Platelets Not Reportable 08/16/16 11:17 Platelet Satelliting Not Reportable 08/16/16 11:17 Plt Morphology Comment Not Reportable 08/16/16 11:17 RBC Morphology Not Reportable 08/16/16 11:17 Dimorphic RBCs Not Reportable 08/16/16 11:17 Polychromasia Few 08/16/16 11:17 Hypochromasia 1+ 08/16/16 11:17 Poikilocytosis 1+ 08/16/16 11:17 Anisocytosis 1+ 08/16/16 11:17 Microcytosis Not Reportable 08/16/16 11:17 Macrocytosis Not Reportable 08/16/16 11:17 Spherocytes Not Reportable 08/16/16 11:17 Pappenheimer Bodies Not Reportable 08/16/16 11:17 Sickle Cells Not Reportable 08/16/16 11:17 Target Cells Few 08/16/16 11:17 Tear Drop Cells Not Reportable 08/16/16 11:17 Ovalocytes 1+ 08/16/16 11:17 Helmet Cells Not Reportable 08/16/16 11:17 Villalob[place] Bodies Not Reportable 08/16/16 11:17 [place] Rings Not Reportable 08/16/16 11:17 [place]el Cells Few 08/16/16 11:17 Bite Cells Not Reportable 08/16/16 11:17 Crenated Cell Not Reportable 08/16/16 11:17 Elliptocytes Not Reportable 08/16/16 11:17 Acanthocytes (Spur) Not Reportable 08/16/16 11:17 Rouleaux Not Reportable 08/16/16 11:17 Hemoglobin C Crystals Not Reportable 08/16/16 11:17 Schistocytes Not Reportable 08/16/16 11:17 Malaria parasites Not Reportable 08/16/16 11:17 Isauro Bodies Not Reportable 08/16/16 11:17 Hem Pathologist Commnt No 08/16/16 11:17 Sodium 152 mmol/L (137-145) H D 08/16/16 11:17 Potassium 4.4 mmol/L (3.6-5.0) 08/16/16 11:17 Chloride 119.7 mmol/L (98-107) H 08/16/16 11:17 Carbon Dioxide 15 mmol/L (22-30) L 08/16/16 11:17 Anion Gap 22 mmol/L 08/16/16 11:17 BUN 86 mg/dL (7-17) H 08/16/16 11:17 Creatinine 4.3 mg/dL (0.7-1.2) H 08/16/16 11:17 Estimated GFR 12 ml/min 08/16/16 11:17 BUN/Creatinine Ratio 20.00 % 08/16/16 11:17 Glucose 85 mg/dL (65-100) 08/16/16 11:17 POC Glucose 114 (70-105) H 08/14/16 20:50 Lactic Acid 2.5 mmol/L (0.7-2.0) H* 08/15/16 18:00 Calcium 7.9 mg/dL (8.4-10.2) L 08/16/16 11:17 Total Bilirubin 0.2 mg/dL (0.1-1.2) 08/13/16 14:30 AST 9 units/L (5-40) 08/13/16 14:30 ALT 9 units/L (7-56) 08/13/16 14:30 Alkaline Phosphatase 161 units/L (35-129) H 08/13/16 14:30 Total Creatine Kinase 52 units/L (30-135) 08/13/16 14:30 NT-Pro-B Natriuret Pep 495.2 pg/mL (0-900) 08/13/16 14:30 Total Protein 7.5 g/dL (6.3-8.2) 08/13/16 14:30 Albumin 3.2 g/dL (3.9-5) L 08/13/16 14:30 Albumin/Globulin Ratio 0.7 % 08/13/16 14:30 Urine Color Yellow (Yellow) 08/13/16 16:42 Urine Turbidity Cloudy (Clear) 08/13/16 16:42 Urine pH 7.0 (5.0-7.0) 08/13/16 16:42 Ur Specific [place] 1.009 (1.003-1.030) 08/13/16 16:42 Urine Protein 100 mg/dl mg/dL (Negative) 08/13/16 16:42 Urine Glucose (UA) Neg mg/dL (Negative) 08/13/16 16:42 Urine Ketones Neg mg/dL (Negative) 08/13/16 16:42 Urine Blood Mod (Negative) 08/13/16 16:42 Urine Nitrite Neg (Negative) 08/13/16 16:42 Urine Bilirubin Neg (Negative) 08/13/16 16:42 Urine Urobilinogen < 2.0 mg/dL (<2.0) 08/13/16 16:42 Ur Leukocyte Esterase Lg (Negative) 08/13/16 16:42 Urine WBC (Auto) 133.0 /HPF (0.0-6.0) H 08/13/16 16:42 Urine RBC (Auto) 5.0 /HPF (0.0-6.0) 08/13/16 16:42 U Epithel Cells (Auto) 1.0 /HPF (0-13.0) 08/13/16 16:42 Urine Bacteria (Auto) 4+ /HPF (Negative) 08/13/16 16:42 Urine Mucus Few /HPF 08/13/16 16:42
[2016-08-17] MEDS: MORPHINE IV PRN (00:16)
[2016-08-17 08:02] LABS: Hematocrit 26.3 % (30.3-42.9); Hemoglobin 8.6 gm/dl (10.1-14.3); Mean Corpuscular HGB Conc 33 % (30-34); Mean Corpuscular Volume 76 fl (79-97); Platelet Count 214 K/mm3 (140-440); Red Blood Count 3.45 M/mm3 (3.65-5.03); Red Cell Distribution Width 17.8 % (13.2-15.2)
[2016-08-17 08:12] LABS: Mean Corpuscular Hemoglobin 25 pg (28-32)
[2016-08-17 08:56] LABS: Basophils % (Manual) 0 % (0.0-1.8); Blastocytes % (Manual) 0 %
[2016-08-17 08:57] LABS: Acanthocytes 1+; Anisocytosis 1+; Burr Cells 2+; Eosinophils % (Manual) 0 % (0.0-4.3); Helmet Cells Few; Ovalocytes 1+; Poikilocytosis 1+; Stomatocytes Few; Total Cells Counted Percent 0
[2016-08-17 08:58] LABS: Diff Status Complete
[2016-08-17] MEDS ORDERED: MAXIPIME/NS 1 GM/100 ML 1 GM/100 ML BAG IV SCH (10:00)
[2016-08-17] MEDS ORDERED: LEVAQUIN 500MG/100ML 500 MG/100 ML BAG IV SCH (10:00)
--- NOTE | 2016-08-17 20:07 | Progress Note ---
Assessment and Plan - Patient Problems (1) Sepsis Current Visit: Yes Status: Acute Qualifiers: Sepsis type: S Plan to address problem: Sepsis protocol, IV abx, blood cultures, supportive care, (2) Acute UTI (urinary tract infection) Current Visit: Yes Status: Acute Plan to address problem: IV abx, (3) Acute renal failure Current Visit: Yes Status: Acute Qualifiers: Acute renal failure type: unspecified Qualified Code(s): N17.9 - Acute kidney failure, unspecified Plan to address problem: IVF replacement, monitor uop q shift, (4) Encephalopathy acute Current Visit: Yes Status: Acute Plan to address problem: Metabolic: Treat sepsis. supportive care, bed alarm, fall precautions. (5) DVT prophylaxis Current Visit: Yes Status: Acute History Interval history: Pt lying in bed, chronically ill appearing, Pt stable overnight. Pt confused. leukocytosis improving. Hospitalist Physical - Constitutional Vitals: Temp Pulse Resp BP Pulse Ox 97.6 F 88 20 161/75 95 08/17/16 16:43 08/17/16 16:43 08/17/16 16:43 08/17/16 16:43 08/17/16 16:43 General appearance: Present: mild distress, cachectic - Neck Neck: Present: supple - Respiratory Respiratory: bilateral: diminished - Cardiovascular Rhythm: regular Heart Sounds: Present: S1 & S2 - Extremities Extremity abnormal: edema Peripheral Pulses: within normal limits - Abdominal General gastrointestinal: soft, non-tender, non-distended - Integumentary Integumentary: Present: clear, dry, decreased turgor - Psychiatric Psychiatric: no intact judgment & insight, no memory intact - Neurologic Neurologic: CNII-XII intact Results - Labs CBC & Chem 7: 08/17/16 07:25 08/16/16 11:17 Labs: Laboratory Last Values WBC 34.0 K/mm3 (4.5-11.0) H 08/17/16 07:25 RBC 3.45 M/mm3 (3.65-5.03) L 08/17/16 07:25 Hgb 8.6 gm/dl (10.1-14.3) L 08/17/16 07:25 Hct 26.3 % (30.3-42.9) L 08/17/16 07:25 MCV 76 fl (79-97) L 08/17/16 07:25 MCH 25 pg (28-32) L 08/17/16 07:25 MCHC 33 % (30-34) 08/17/16 07:25 RDW 17.8 % (13.2-15.2) H 08/17/16 07:25 Plt Count 214 K/mm3 (140-440) 08/17/16 07:25 Add Manual Diff Complete 08/17/16 07:25 Total Counted 100 08/17/16 07:25 Seg Neutrophils % Mill Control Operator 08/16/16 11:17 Seg Neuts % (Manual) 97.0 % (40.0-70.0) H 08/17/16 07:25 Band Neutrophils % 1.0 % 08/17/16 07:25 Lymphocytes % (Manual) 1.0 % (13.4-35.0) L 08/17/16 07:25 Reactive Lymphs % (Man) 0 % 08/17/16 07:25 Monocytes % (Manual) 0 % (0.0-7.3) 08/17/16 07:25 Eosinophils % (Manual) 0 % (0.0-4.3) 08/17/16 07:25 Basophils % (Manual) 0 % (0.0-1.8) 08/17/16 07:25 Metamyelocytes % 0 % 08/17/16 07:25 Myelocytes % 1.0 % 08/17/16 07:25 Promyelocytes % 0 % 08/17/16 07:25 Blast Cells % 0 % 08/17/16 07:25 Nucleated RBC % 1.0 % (0.0-0.9) H 08/17/16 07:25 Seg Neutrophils # Man 33.0 K/mm3 (1.8-7.7) H 08/17/16 07:25 Band Neutrophils # 0.3 K/mm3 08/17/16 07:25 Lymphocytes # (Manual) 0.3 K/mm3 (1.2-5.4) L 08/17/16 07:25 Abs React Lymphs (Man) 0.0 K/mm3 08/17/16 07:25 Monocytes # (Manual) 0.0 K/mm3 (0.0-0.8) 08/17/16 07:25 Eosinophils # (Manual) 0.0 K/mm3 (0.0-0.4) 08/17/16 07:25 Basophils # (Manual) 0.0 K/mm3 (0.0-0.1) 08/17/16 07:25 Metamyelocytes # 0.0 K/mm3 08/17/16 07:25 Myelocytes # 0.3 K/mm3 08/17/16 07:25 Promyelocytes # 0.0 K/mm3 08/17/16 07:25 Blast Cells # 0.0 K/mm3 08/17/16 07:25 WBC Morphology Not Reportable 08/17/16 07:25 Hypersegmented Neuts Not Reportable 08/17/16 07:25 Hyposegmented Neuts Not Reportable 08/17/16 07:25 Hypogranular Neuts Not Reportable 08/17/16 07:25 Smudge Cells Not Reportable 08/17/16 07:25 Toxic Granulation Not Reportable 08/17/16 07:25 Toxic Vacuolation Not Reportable 08/17/16 07:25 Dohle Bodies Not Reportable 08/17/16 07:25 Pelger-Huet Anomaly Not Reportable 08/17/16 07:25 Celestine Rods Not Reportable 08/17/16 07:25 Platelet Estimate Appears normal 08/17/16 07:25 Clumped Platelets Not Reportable 08/17/16 07:25 Plt Clumps, EDTA Not Reportable 08/17/16 07:25 Large Platelets Not Reportable 08/17/16 07:25 Giant Platelets Not Reportable 08/17/16 07:25 Platelet Satelliting Not Reportable 08/17/16 07:25 Plt Morphology Comment Not Reportable 08/17/16 07:25 RBC Morphology Not Reportable 08/17/16 07:25 Dimorphic RBCs Not Reportable 08/17/16 07:25 Polychromasia Not Reportable 08/17/16 07:25 Hypochromasia Not Reportable 08/17/16 07:25 Poikilocytosis 1+ 08/17/16 07:25 Anisocytosis 1+ 08/17/16 07:25 Microcytosis Not Reportable 08/17/16 07:25 Macrocytosis Not Reportable 08/17/16 07:25 Spherocytes Not Reportable 08/17/16 07:25 Pappenheimer Bodies Not Reportable 08/17/16 07:25 Sickle Cells Not Reportable 08/17/16 07:25 Target Cells Not Reportable 08/17/16 07:25 Tear Drop Cells Not Reportable 08/17/16 07:25 Ovalocytes 1+ 08/17/16 07:25 Stomatocytes Few 08/17/16 07:25 Helmet Cells Few 08/17/16 07:25 Villalob[place] Bodies Not Reportable 08/17/16 07:25 [place] Rings Not Reportable 08/17/16 07:25 Shanel Cells 2+ 08/17/16 07:25 Bite Cells Not Reportable 08/17/16 07:25 Crenated Cell Not Reportable 08/17/16 07:25 Elliptocytes Not Reportable 08/17/16 07:25 Acanthocytes (Spur) 1+ 08/17/16 07:25 Rouleaux Not Reportable 08/17/16 07:25 Hemoglobin C Crystals Not Reportable 08/17/16 07:25 Schistocytes Not Reportable 08/17/16 07:25 Malaria parasites Not Reportable 08/17/16 07:25 Isauro Bodies Not Reportable 08/17/16 07:25 Hem Pathologist Commnt No 08/17/16 07:25 Sodium 152 mmol/L (137-145) H D 08/16/16 11:17 Potassium 4.4 mmol/L (3.6-5.0) 08/16/16 11:17 Chloride 119.7 mmol/L (98-107) H 08/16/16 11:17 Carbon Dioxide 15 mmol/L (22-30) L 08/16/16 11:17 Anion Gap 22 mmol/L 08/16/16 11:17 BUN 86 mg/dL (7-17) H 08/16/16 11:17 Creatinine 4.3 mg/dL (0.7-1.2) H 08/16/16 11:17 Estimated GFR 12 ml/min 08/16/16 11:17 BUN/Creatinine Ratio 20.00 % 08/16/16 11:17 Glucose 85 mg/dL (65-100) 08/16/16 11:17 POC Glucose 114 (70-105) H 08/14/16 20:50 Lactic Acid 2.5 mmol/L (0.7-2.0) H* 08/15/16 18:00 Calcium 7.9 mg/dL (8.4-10.2) L 08/16/16 11:17 Total Bilirubin 0.2 mg/dL (0.1-1.2) 08/13/16 14:30 AST 9 units/L (5-40) 08/13/16 14:30 ALT 9 units/L (7-56) 08/13/16 14:30 Alkaline Phosphatase 161 units/L (35-129) H 08/13/16 14:30 Total Creatine Kinase 52 units/L (30-135) 08/13/16 14:30 NT-Pro-B Natriuret Pep 495.2 pg/mL (0-900) 08/13/16 14:30 Total Protein 7.5 g/dL (6.3-8.2) 08/13/16 14:30 Albumin 3.2 g/dL (3.9-5) L 08/13/16 14:30 Albumin/Globulin Ratio 0.7 % 08/13/16 14:30 Urine Color Yellow (Yellow) 08/13/16 16:42 Urine Turbidity Cloudy (Clear) 08/13/16 16:42 Urine pH 7.0 (5.0-7.0) 08/13/16 16:42 Ur Specific [place] 1.009 (1.003-1.030) 08/13/16 16:42 Urine Protein 100 mg/dl mg/dL (Negative) 08/13/16 16:42 Urine Glucose (UA) Neg mg/dL (Negative) 08/13/16 16:42 Urine Ketones Neg mg/dL (Negative) 08/13/16 16:42 Urine Blood Mod (Negative) 08/13/16 16:42 Urine Nitrite Neg (Negative) 08/13/16 16:42 Urine Bilirubin Neg (Negative) 08/13/16 16:42 Urine Urobilinogen < 2.0 mg/dL (<2.0) 08/13/16 16:42 Ur Leukocyte Esterase Lg (Negative) 08/13/16 16:42 Urine WBC (Auto) 133.0 /HPF (0.0-6.0) H 08/13/16 16:42 Urine RBC (Auto) 5.0 /HPF (0.0-6.0) 08/13/16 16:42 U Epithel Cells (Auto) 1.0 /HPF (0-13.0) 08/13/16 16:42 Urine Bacteria (Auto) 4+ /HPF (Negative) 08/13/16 16:42 Urine Mucus Few /HPF 08/13/16 16:42 Random Vancomycin 8.6 ug/mL (0-40.0) 08/17/16 06:47
[2016-08-18] MEDS: LEVAQUIN 750MG/150ML 750 MG/150 ML BAG IV SCH (06:02)
[2016-08-18 12:59] LABS: Hematocrit 23.5 % (30.3-42.9); Hemoglobin 7.6 gm/dl (10.1-14.3); Mean Corpuscular HGB Conc 33 % (30-34); Mean Corpuscular Volume 75 fl (79-97); Platelet Count 172 K/mm3 (140-440); Red Blood Count 3.13 M/mm3 (3.65-5.03); Red Cell Distribution Width 17.9 % (13.2-15.2)
[2016-08-18 13:00] LABS: Mean Corpuscular Hemoglobin 24 pg (28-32); White Blood Count 21.5 K/mm3 (4.5-11.0)
[2016-08-18] MEDS ORDERED: SODIUM BICARBONATE 75 MEQ in D5W 1,000 ML IV SCH (13:00)
[2016-08-18 13:27] LABS: BUN/Creatinine Ratio 30.45; Calcium 8.6 mg/dL (8.4-10.2); Chloride 136.7 mmol/L (98-107); Potassium 3.4 mmol/L (3.6-5.0)
--- NOTE | 2016-08-18 13:34 | XRay Report ---
PORTABLE CHEST: An AP portable view of the chest demonstrates a normal cardiac contour considering the limits of this technique. The lungs are clear with no evidence of infiltrate, fluid or failure. IMPRESSION: Normal portable chest.
[2016-08-18 14:15] LABS: Anisocytosis 1+; Basophils % (Manual) 0 % (0.0-1.8); Blastocytes % (Manual) 0 %; Burr Cells 1+; Eosinophils % (Manual) 0 % (0.0-4.3); Ovalocytes Few; Platelet Estimate Appears Decreased; Poikilocytosis 1+
[2016-08-18 14:16] LABS: Diff Status Complete; Large Platelets Few; Target Cells 1+
--- NOTE | 2016-08-18 15:32 | Progress Note ---
Assessment and Plan Assessment and plan: Severe Sepsis secondary to beta hemolytic streptococci -Managed according to sepsis protocol, IV ceftriaxone, IV fluids Acute kidney failure - Nephrology is consulted - IV adjusted - Creatinine showed marked improvement Hypernatremia - On D5 W his sodium bicarbonate 150 ml/h - We will check BMP at 6 PM Acute metabolic encephalopathy - Supportive care Prophylaxis - Heparin CODE STATUS - FULL Disposition Continue inpatient care The high probability of a clinically significant, sudden or life threatening deterioration of the [neurolgy, metabolic] system(s) required my full and direct attention, intervention and personal management. The aggregate critical care time was [31] minutes. This time is in addition to time spent performing reported procedures but includes the following: [x] Data Review and interpretation [x] Patient assessment and monitoring of vital signs [x] Documentation [x] Medication orders and management History Interval history: Patient was seen and evaluated this morning. Patient in non communicative. Hospitalist Physical - Physical exam Narrative exam: Not in cardiopulmonary distress. Patient moans Cachectic patient lying on the bed, on restraints. Vital signs as documented. Head exam is unremarkable. No scleral icterus . Neck is without jugular venous distension, thyromegaly, or carotid bruits. Lungs are clear to auscultation. Cardiac exam reveals regular rate and Rhythm. First and second heart sounds normal. No murmurs, rubs or gallops. Abdominal exam reveals normal bowel sounds, no masses, no organomegaly and no aortic enlargement. INTERNATIONAL REPRESENTATIVE: Patient is non communicative, agitated, on restraints. - Constitutional Vitals: Temp Pulse Resp BP Pulse Ox 98.1 F 95 H 16 132/74 98 08/18/16 13:30 08/18/16 13:30 08/18/16 13:30 08/18/16 13:30 08/18/16 13:30 General appearance: Present: mild distress, cachectic Results - Labs CBC & Chem 7: 08/18/16 12:24 08/18/16 12:24 Labs: Laboratory Last Values WBC 21.5 K/mm3 (4.5-11.0) H 08/18/16 12:24 RBC 3.13 M/mm3 (3.65-5.03) L 08/18/16 12:24 Hgb 7.6 gm/dl (10.1-14.3) L 08/18/16 12:24 Hct 23.5 % (30.3-42.9) L 08/18/16 12:24 MCV 75 fl (79-97) L 08/18/16 12:24 MCH 24 pg (28-32) L 08/18/16 12:24 MCHC 33 % (30-34) 08/18/16 12:24 RDW 17.9 % (13.2-15.2) H 08/18/16 12:24 Plt Count 172 K/mm3 (140-440) 08/18/16 12:24 Add Manual Diff Complete 08/18/16 12:24 Total Counted 100 08/18/16 12:24 Seg Neutrophils % Track Fitter 08/16/16 11:17 Seg Neuts % (Manual) 84.0 % (40.0-70.0) H 08/18/16 12:24 Band Neutrophils % 7.0 % 08/18/16 12:24 Lymphocytes % (Manual) 7.0 % (13.4-35.0) L 08/18/16 12:24 Reactive Lymphs % (Man) 0 % 08/18/16 12:24 Monocytes % (Manual) 2.0 % (0.0-7.3) 08/18/16 12:24 Eosinophils % (Manual) 0 % (0.0-4.3) 08/18/16 12:24 Basophils % (Manual) 0 % (0.0-1.8) 08/18/16 12:24 Metamyelocytes % 0 % 08/18/16 12:24 Myelocytes % 0 % 08/18/16 12:24 Promyelocytes % 0 % 08/18/16 12:24 Blast Cells % 0 % 08/18/16 12:24 Nucleated RBC % 1.0 % (0.0-0.9) H 08/18/16 12:24 Seg Neutrophils # Man 18.1 K/mm3 (1.8-7.7) H 08/18/16 12:24 Band Neutrophils # 1.5 K/mm3 08/18/16 12:24 Lymphocytes # (Manual) 1.5 K/mm3 (1.2-5.4) 08/18/16 12:24 Abs React Lymphs (Man) 0.0 K/mm3 08/18/16 12:24 Monocytes # (Manual) 0.4 K/mm3 (0.0-0.8) 08/18/16 12:24 Eosinophils # (Manual) 0.0 K/mm3 (0.0-0.4) 08/18/16 12:24 Basophils # (Manual) 0.0 K/mm3 (0.0-0.1) 08/18/16 12:24 Metamyelocytes # 0.0 K/mm3 08/18/16 12:24 Myelocytes # 0.0 K/mm3 08/18/16 12:24 Promyelocytes # 0.0 K/mm3 08/18/16 12:24 Blast Cells # 0.0 K/mm3 08/18/16 12:24 Pathologist Review 08/15/16 10:57 WBC Morphology Not Reportable 08/18/16 12:24 Hypersegmented Neuts Not Reportable 08/18/16 12:24 Hyposegmented Neuts Not Reportable 08/18/16 12:24 Hypogranular Neuts Not Reportable 08/18/16 12:24 Smudge Cells Not Reportable 08/18/16 12:24 Toxic Granulation Not Reportable 08/18/16 12:24 Toxic Vacuolation Not Reportable 08/18/16 12:24 Dohle Bodies Not Reportable 08/18/16 12:24 Pelger-Huet Anomaly Not Reportable 08/18/16 12:24 Celestine Rods Not Reportable 08/18/16 12:24 Platelet Estimate Appears decreased 08/18/16 12:24 Clumped Platelets Not Reportable 08/18/16 12:24 Plt Clumps, EDTA Not Reportable 08/18/16 12:24 Large Platelets Few 08/18/16 12:24 Giant Platelets Not Reportable 08/18/16 12:24 Platelet Satelliting Not Reportable 08/18/16 12:24 Plt Morphology Comment Not Reportable 08/18/16 12:24 RBC Morphology Not Reportable 08/18/16 12:24 Dimorphic RBCs Not Reportable 08/18/16 12:24 Polychromasia Not Reportable 08/18/16 12:24 Hypochromasia Not Reportable 08/18/16 12:24 Poikilocytosis 1+ 08/18/16 12:24 Anisocytosis 1+ 08/18/16 12:24 Microcytosis Not Reportable 08/18/16 12:24 Macrocytosis Not Reportable 08/18/16 12:24 Spherocytes Not Reportable 08/18/16 12:24 Pappenheimer Bodies Not Reportable 08/18/16 12:24 Sickle Cells Not Reportable 08/18/16 12:24 Target Cells 1+ 08/18/16 12:24 Tear Drop Cells Not Reportable 08/18/16 12:24 Ovalocytes Few 08/18/16 12:24 Stomatocytes Few 08/17/16 07:25 Helmet Cells Not Reportable 08/18/16 12:24 [place]ob[place] Bodies Not Reportable 08/18/16 12:24 [place] Rings Not Reportable 08/18/16 12:24 [place] Cells 1+ 08/18/16 12:24 Bite Cells Not Reportable 08/18/16 12:24 Crenated Cell Not Reportable 08/18/16 12:24 Elliptocytes Not Reportable 08/18/16 12:24 Acanthocytes (Spur) Not Reportable 08/18/16 12:24 Rouleaux Not Reportable 08/18/16 12:24 Hemoglobin C Crystals Not Reportable 08/18/16 12:24 Schistocytes Not Reportable 08/18/16 12:24 Malaria parasites Not Reportable 08/18/16 12:24 Isauro Bodies Not Reportable 08/18/16 12:24 Hem Pathologist Commnt No 08/18/16 12:24 Sodium 173 mmol/L (137-145) H* D 08/18/16 12:24 Potassium 3.4 mmol/L (3.6-5.0) L D 08/18/16 12:24 Chloride 136.7 mmol/L (98-107) H 08/18/16 12:24 Carbon Dioxide 16 mmol/L (22-30) L 08/18/16 12:24 Anion Gap 22 mmol/L 08/18/16 12:24 BUN 67 mg/dL (7-17) H 08/18/16 12:24 Creatinine 2.2 mg/dL (0.7-1.2) H 08/18/16 12:24 Estimated GFR 26 ml/min 08/18/16 12:24 BUN/Creatinine Ratio 30.45 % 08/18/16 12:24 Glucose 90 mg/dL (65-100) 08/18/16 12:24 POC Glucose 114 (70-105) H 08/14/16 20:50 Lactic Acid 2.5 mmol/L (0.7-2.0) H* 08/15/16 18:00 Calcium 8.6 mg/dL (8.4-10.2) 08/18/16 12:24 Total Bilirubin 0.2 mg/dL (0.1-1.2) 08/13/16 14:30 AST 9 units/L (5-40) 08/13/16 14:30 ALT 9 units/L (7-56) 08/13/16 14:30 Alkaline Phosphatase 161 units/L (35-129) H 08/13/16 14:30 Total Creatine Kinase 52 units/L (30-135) 08/13/16 14:30 NT-Pro-B Natriuret Pep 495.2 pg/mL (0-900) 08/13/16 14:30 Total Protein 7.5 g/dL (6.3-8.2) 08/13/16 14:30 Albumin 3.2 g/dL (3.9-5) L 08/13/16 14:30 Albumin/Globulin Ratio 0.7 % 08/13/16 14:30 Urine Color Yellow (Yellow) 08/13/16 16:42 Urine Turbidity Cloudy (Clear) 08/13/16 16:42 Urine pH 7.0 (5.0-7.0) 08/13/16 16:42 Ur Specific [place] 1.009 (1.003-1.030) 08/13/16 16:42 Urine Protein 100 mg/dl mg/dL (Negative) 08/13/16 16:42 Urine Glucose (UA) Neg mg/dL (Negative) 08/13/16 16:42 Urine Ketones Neg mg/dL (Negative) 08/13/16 16:42 Urine Blood Mod (Negative) 08/13/16 16:42 Urine Nitrite Neg (Negative) 08/13/16 16:42 Urine Bilirubin Neg (Negative) 08/13/16 16:42 Urine Urobilinogen < 2.0 mg/dL (<2.0) 08/13/16 16:42 Ur Leukocyte Esterase Lg (Negative) 08/13/16 16:42 Urine WBC (Auto) 133.0 /HPF (0.0-6.0) H 08/13/16 16:42 Urine RBC (Auto) 5.0 /HPF (0.0-6.0) 08/13/16 16:42 U Epithel Cells (Auto) 1.0 /HPF (0-13.0) 08/13/16 16:42 Urine Bacteria (Auto) 4+ /HPF (Negative) 08/13/16 16:42 Urine Mucus Few /HPF 08/13/16 16:42 Random Vancomycin 8.6 ug/mL (0-40.0) 08/17/16 06:47
--- NOTE | 2016-08-18 16:48 | Consultation ---
History of Present Illness - Reason for Consult Consult date: 08/18/16 acute renal failure, hypernatremia, metabolic acidosis Requesting physician: NERY MICHAELS - History of Present Illness This is a 71 yo F with multiple past medical history incl. Hypertension, hyperlipidemia, dementia, who was sent from [facility] to the [facility] ER for evaluation of failure to thrive, weakness, lethargy along with superpubic abdominal pain, cramping. Patient was found to be in acute renal failure with BUN/Cr around 90/5mg/dl respectively, with evidence of UTI on UA. patient was admitted for treatment of UTI and further work up/treatment of ABDI. CT A/P revealed prominent dilation of urinary bladder along with evidence of b/l hydronephrosis, which was also shown on renal US. Renal function started to improve after ryan placement and IVF with BUN/Cr trending down now to 67/2.2, however now with severe hypernatremia in the setting of poor po intake/ hydration. Renal consult is requested for management of ABDI and electrolyte imbalance. Patient seen and examined at bedside, however pt is lethargic and encephalopathic, not able to give any history. Past History Past Medical History: hypertension, hyperlipidemia Social history: full code, other ([place] resident ) Medications and Allergies Allergies Allergy/AdvReac Type Severity Reaction Status Date / Time No Known Allergies Allergy Unverified 08/13/16 15:50 Home Medications Medication Instructions Recorded Confirmed Last Taken Type Ditropan 10 mg PO DAILY 08/14/16 08/18/16 Unknown History Eliquis 2.5 mg PO DAILY 08/14/16 08/18/16 Unknown History Lasix TAB 40 mg PO DAILY 08/14/16 08/18/16 Unknown History Lisinopril 20 mg PO DAILY 08/14/16 08/18/16 Unknown History Lovastatin 10 mg PO DAILY 08/14/16 08/18/16 Unknown History Sertraline 50 mg PO DAILY 08/14/16 08/18/16 Unknown History Tylenol Arthritis 1,000 mg PO Q6HR PRN 08/14/16 08/18/16 Unknown History Zantac 150 MG TAB 150 mg PO DAILY 08/14/16 08/18/16 Unknown History Active Meds: Active Medications Acetaminophen (Tylenol) 650 mg PO Q6H PRN PRN Reason: Non Cardiac Pain or Temp>100.5 Acetaminophen/Hydrocodone Bitart ([place] 5/325) 1 each PO Q4H PRN PRN Reason: Pain, Moderate (4-6) Last Admin: 08/14/16 00:48 Dose: 1 each Levofloxacin/Dextrose (Levaquin 750mg/150ml) 750 mg in 150 mls @ 100 mls/hr IV Q48HR JEAN PIERRE Last Admin: 08/18/16 06:02 Dose: Not Given Sodium Bicarbonate 75 meq/Potassium Chloride 40 meq/Dextrose 1,095 mls @ 150 mls/hr IV DIRECT JEAN PIERRE Morphine Sulfate (Morphine) 2 mg IV Q6H PRN PRN Reason: Pain, Moderate (4-6) Last Admin: 08/17/16 00:16 Dose: 2 mg Ondansetron HCl (Zofran) 4 mg IV Q4H PRN PRN Reason: Nausea And Vomiting Review of Systems ROS unobtainable: due to mental status Exam - Vital Signs Vital signs: Vital Signs Temp Pulse BP Pulse Ox 97.9 F 88 146/70 100 08/13/16 12:42 08/13/16 12:42 08/13/16 12:42 08/13/16 12:42 - General Appearance General appearance: cachectic, other (encephlopathic) EENT: ATNC, PERRL, mucous membranes dry, other (bilateral temporal wasting ) Neck: Present: neck supple Respiratory: Clear to Ascultation Heart: regular, S1S2 Gastrointestinal: Present: normal, normoactive bowel sounds Integumentary: no rash, other (no edema ) Neurologic: obtunded Results - Lab Results 08/18/16 12:24 08/18/16 12:24 Most recent lab results Calcium 8.6 mg/dL (8.4-10.2) 08/18/16 12:24 Laboratory Tests 08/13/16 08/15/16 08/15/16 16:42 13:33 18:00 Lactic Acid 2.4 H* 2.5 H* Calcium Urine Color Yellow Urine Turbidity Cloudy Urine pH 7.0 Ur Specific [place] 1.009 Urine Protein 100 mg/dl Urine Glucose (UA) Neg Urine Ketones Neg Urine Blood Mod Urine Nitrite Neg Urine Bilirubin Neg Urine Urobilinogen < 2.0 Ur Leukocyte Esterase Lg Urine WBC (Auto) 133.0 H Urine RBC (Auto) 5.0 U Epithel Cells (Auto) 1.0 Urine Bacteria (Auto) 4+ Urine Mucus Few Random Vancomycin 08/16/16 08/17/16 08/18/16 11:17 06:47 12:24 Lactic Acid Calcium 7.9 L 8.6 Urine Color Urine Turbidity Urine pH Ur Specific [place] Urine Protein Urine Glucose (UA) Urine Ketones Urine Blood Urine Nitrite Urine Bilirubin Urine Urobilinogen Ur Leukocyte Esterase Urine WBC (Auto) Urine RBC (Auto) U Epithel Cells (Auto) Urine Bacteria (Auto) Urine Mucus Random Vancomycin 8.6 Assessment and Plan - Patient Problems (1) Acute renal failure Current Visit: Yes Status: Acute Qualifiers: Acute renal failure type: with other specified pathological lesion Qualified Code(s): N17.8 - Other acute kidney failure Plan to address problem: acute renal failure most likely due to acute obstructive nephropathy/b/l hydronephrosis; pre-renal azotemia contributing. Will switch IVF to D5w + 75meq Na/L + KCl 40Meq/L at 150ml/hr to correct acute hypernatremia and metabolic acidosis. continue ryan. recommend consult. Will monitor electrolytes and renal parameters closely and adjust IVF accordingly D/w Dr. Michaels (2) Hydronephrosis Current Visit: Yes Status: Acute Qualifiers: Hydronephrosis type: H Plan to address problem: severely dilated bladder noted, continue ryan, consider consult (3) Acute UTI (urinary tract infection) Current Visit: Yes Status: Acute Plan to address problem: continue ABX treatment with levaquin, dose renally adjusted. (4) Hypernatremia Current Visit: Yes Status: Acute Plan to address problem: due to severe free water deficit. continue hypotonic IVF at 150ml/hr as above. will monitor electrolytes to target Na correction about 12meq/24h given acute nature of hypernatremia (5) Metabolic acidosis Current Visit: Yes Status: Acute Plan to address problem: continue IV bicarb (6) Hypokalemia Current Visit: Yes Status: Acute Plan to address problem: will supplement with KCl (7) Dehydration Current Visit: Yes Status: Acute (8) Encephalopathy acute Current Visit: Yes Status: Acute (9) Sepsis Current Visit: Yes Status: Acute Qualifiers: Sepsis type: Streptococcus group B Qualified Code(s): A40.1 - Sepsis due to streptococcus, group B Plan to address problem: continue ABX w/ levaquin, f/u sensitivities
[2016-08-18 21:21] LABS: BUN/Creatinine Ratio 29.54; Calcium 8.3 mg/dL (8.4-10.2); Chloride 133.1 mmol/L (98-107); Potassium 3.9 mmol/L (3.6-5.0)
[2016-08-19] MEDS: MORPHINE IV PRN ×2 (00:34→12:47)
[2016-08-19] MEDS: KCL IV SCH ×2 (00:34→06:33)
[2016-08-19] MEDS: D5W IV SCH ×2 (00:34→06:33)
[2016-08-19] MEDS: SODIUM BICARBONATE IV SCH ×2 (00:34→06:33)
[2016-08-19 05:35] LABS: Albumin 2.5 g/dL (3.9-5); Albumin/Globulin Ratio 0.7 %; BUN/Creatinine Ratio 31.05; Bilirubin,Total 0.3 mg/dL (0.1-1.2); Chloride 132.7 mmol/L (98-107); Magnesium 1.3 mg/dL (1.7-2.3); Potassium 3.6 mmol/L (3.6-5.0); Total Protein 6.1 g/dL (6.3-8.2)
[2016-08-19] MEDS: D5W 1,000 ML IV SCH ×2 (08:35→17:17)
[2016-08-19] MEDS: LEVAQUIN 750MG/150ML 750 MG/150 ML BAG IV SCH (09:23)
[2016-08-19 10:20] LABS: Hematocrit 20.2 % (30.3-42.9); Hemoglobin 6.5 gm/dl (10.1-14.3); Mean Corpuscular HGB Conc 32 % (30-34); Mean Corpuscular Volume 74 fl (79-97); Platelet Count 133 K/mm3 (140-440); Red Blood Count 2.72 M/mm3 (3.65-5.03); Red Cell Distribution Width 18.5 % (13.2-15.2); White Blood Count 15.5 K/mm3 (4.5-11.0)
[2016-08-19 10:23] LABS: Mean Corpuscular Hemoglobin 24 pg (28-32)
--- NOTE | 2016-08-19 10:43 | Progress Note ---
Assessment and Plan - Patient Problems (1) Acute renal failure Current Visit: Yes Status: Acute Qualifiers: Acute renal failure type: with other specified pathological lesion Qualified Code(s): N17.8 - Other acute kidney failure Plan to address problem: acute renal failure most likely due to acute obstructive nephropathy/b/l hydronephrosis; pre-renal azotemia contributing. renal function improving on IVF. given persistent hypernatremia switched IVF to D5W continue ryan. recommend consult. Will monitor electrolytes and renal parameters closely and adjust IVF accordingly Supportive care for ABDI avoid nephrotoxins, NSAIDs, IV contrast D/w Dr. Cobian (2) Hydronephrosis Current Visit: Yes Status: Acute Qualifiers: Hydronephrosis type: H Plan to address problem: severely dilated bladder noted on CT, continue ryan, consider consult (3) Acute UTI (urinary tract infection) Current Visit: Yes Status: Acute Plan to address problem: continue ABX treatment with levaquin, dose renally adjusted. (4) Hypernatremia Current Visit: Yes Status: Acute Plan to address problem: due to severe free water deficit. continue D5W at 125ml/hr. will monitor electrolytes to target Na correction about 8-10meq/24h (5) Metabolic acidosis Current Visit: Yes Status: Acute Plan to address problem: resolved w bicarb gtt (6) Hypokalemia Current Visit: Yes Status: Acute Plan to address problem: will supplement with KCl as indicated (7) Dehydration Current Visit: Yes Status: Acute (8) Encephalopathy acute Current Visit: Yes Status: Acute (9) Sepsis Current Visit: Yes Status: Acute Qualifiers: Sepsis type: Streptococcus group B Qualified Code(s): A40.1 - Sepsis due to streptococcus, group B Subjective Date of service: 08/19/16 Interval history: pt remains obtunded, non-verbal, contracted torso. Objective - Vital Signs Vital signs: Vital Signs - 12hr 08/19/16 08/19/16 08/19/16 00:34 00:50 01:04 Temperature Pulse Rate [ Apical] Pulse Rate [ Left From Monitor] Respiratory 22 22 Rate Respiratory 22 Rate [Upper Back] Blood Pressure [Left Arm] O2 Sat by Pulse Oximetry 08/19/16 08/19/16 08/19/16 01:17 05:14 08:46 Temperature 97.7 F 97.9 F 97.4 F L Pulse Rate [ 79 71 Apical] Pulse Rate [ 91 H Left From Monitor] Respiratory 18 16 20 Rate Respiratory Rate [Upper Back] Blood Pressure 134/81 141/92 [Left Arm] O2 Sat by Pulse 93 153 H Oximetry - General Appearance General appearance: cachectic, chronically ill, frail, other (obtunded ) EENT: ATNC, PERRL, mucous membranes dry Neck: no JVD Respiratory: Present: Clear to Ascultation Cardiology: regular, S1S2 Gastrointestinal: normal Integumentary: no rash, other (no edema ) Neurologic: obtunded - Lab 08/19/16 09:43 08/19/16 05:00 Most recent lab results Calcium 8.0 mg/dL (8.4-10.2) L 08/19/16 05:00 Magnesium 1.3 mg/dL (1.7-2.3) L 08/19/16 05:00
[2016-08-19 11:11] LABS: Basophils % (Manual) 0 % (0.0-1.8); Blastocytes % (Manual) 0 %; Eosinophils % (Manual) 0 % (0.0-4.3); Total Cells Counted Percent 0
[2016-08-19 11:13] LABS: Anisocytosis 1+; Hypochromasia 2+; Target Cells 1+
[2016-08-19 11:14] LABS: Diff Status Complete; Large Platelets Few; Platelet Estimate Cons
[2016-08-19] MEDS ORDERED: SIMPLE SYRUP FEEDTUBE PRN ×2 (13:55)
[2016-08-19] MEDS ORDERED: PANCREAZE DR 10,500 UNIT FEEDTUBE PRN (13:55)
[2016-08-19] MEDS ORDERED: SODIUM BICARBONATE FEEDTUBE PRN (13:55)
[2016-08-19 14:30] LABS: BUN/Creatinine Ratio 28.33; Calcium 7.9 mg/dL (8.4-10.2); Chloride 131.2 mmol/L (98-107); Potassium 3.6 mmol/L (3.6-5.0)
--- NOTE | 2016-08-19 14:35 | XRay Report ---
KUB for Dobbhoff tube placement. Findings: The patient is rotated to the right. The tip of the Dobbhoff tube is projected over the right lower thorax. This may be in the distal esophagus, but the exact location is uncertain. Since it is possible that this could be in the right lower lobe bronchus, I recommend removing the Dobbhoff tube and reinserting for optimal position. These finds were called to the patients nurse at 2:30 PM on August 19, 2016.
--- NOTE | 2016-08-19 15:26 | XRay Report ---
KUB for Dobbhoff tube placement. Findings: The tip of the Dobbhoff tube overlies the right lower lung field indicating that this is in the right lower lobe bronchus. Comment: These findings were called to the patients nurse at 3:20 PM on August 19, 2016.
[2016-08-19] MEDS ORDERED: ATIVAN IV ONE (16:50)
--- NOTE | 2016-08-19 18:34 | XRay Report ---
FINAL REPORT EXAM: XR ABDOMEN 1V AP HISTORY: dubhoff placement TECHNIQUE: Single-view abdomen 1 image PRIORS: Abdomen radiograph 08/19/2016 FINDINGS: There is a metallic tip feeding tube coursing through the right mainstem bronchus to the right lung base, as in the prior study. There is a nonobstructed bowel-gas pattern. No abnormal calcifications are seen. No acute osseous abnormality is identified. IMPRESSION: 1. Nonobstructed bowel-gas pattern. 2. Metallic tip feeding tube is malpositioned, coursing to the right lung base. This should be repositioned. C1
[2016-08-20] MEDS: D5W 1,000 ML IV SCH ×2 (00:30→07:08)
[2016-08-20] MEDS: MORPHINE IV PRN (00:37)
[2016-08-20 09:18] LABS: Basophils % (Auto) 0.3 % (0.0-1.8); Eosinophils % (Auto) 0.7 % (0.0-4.3); Hematocrit 20.9 % (30.3-42.9); Hemoglobin 6.6 gm/dl (10.1-14.3); Mean Corpuscular HGB Conc 32 % (30-34); Mean Corpuscular Volume 76 fl (79-97); Platelet Count 102 K/mm3 (140-440); Red Blood Count 2.75 M/mm3 (3.65-5.03); Red Cell Distribution Width 18.4 % (13.2-15.2); White Blood Count 14.4 K/mm3 (4.5-11.0)
[2016-08-20 09:23] LABS: Mean Corpuscular Hemoglobin 24 pg (28-32)
[2016-08-20 09:50] LABS: Albumin 2.3 g/dL (3.9-5); Albumin/Globulin Ratio 0.6 %; BUN/Creatinine Ratio 24.66; Bilirubin,Total 0.4 mg/dL (0.1-1.2); Calcium 7.3 mg/dL (8.4-10.2); Total Protein 6.2 g/dL (6.3-8.2)
[2016-08-20] MEDS ORDERED: NACL 0.9% 500 ML 500 ML IV ONE (10:21)
[2016-08-20 10:28] LABS: Chloride 117.4 mmol/L (98-107); Potassium 3.6 mmol/L (3.6-5.0)
--- NOTE | 2016-08-20 10:43 | Progress Note ---
Assessment and Plan - Patient Problems (1) Acute renal failure Current Visit: Yes Status: Acute Qualifiers: Acute renal failure type: with other specified pathological lesion Qualified Code(s): N17.8 - Other acute kidney failure Plan to address problem: acute renal failure most likely due to pre-renal azotemia and obstructive nephrotpathy, renal function improving on IVF/ryan. continue ryan. recommend consult. na improving at adequate rate, will monitor electrolytes and renal parameters closely and adjust IVF accordingly Supportive care for ABDI avoid nephrotoxins, NSAIDs, IV contrast D/w Dr. Cobian (2) Hydronephrosis Current Visit: Yes Status: Acute Qualifiers: Hydronephrosis type: H Plan to address problem: severely dilated bladder noted on CT, continue ryan, consider consult (3) Acute UTI (urinary tract infection) Current Visit: Yes Status: Acute Plan to address problem: continue ABX treatment with levaquin, dose renally adjusted. (4) Hypernatremia Current Visit: Yes Status: Acute Plan to address problem: na improved to 161, continue D5W at 125ml/hr. will monitor electrolytes to target Na correction about 8-10meq/24h (5) Metabolic acidosis Current Visit: Yes Status: Acute Plan to address problem: resolved w bicarb gtt (6) Hypokalemia Current Visit: Yes Status: Acute Plan to address problem: k normalized. will supplement with KCl as indicated. (7) Dehydration Current Visit: Yes Status: Acute (8) Encephalopathy acute Current Visit: Yes Status: Acute (9) Protein-calorie malnutrition, severe Current Visit: Yes Status: Acute Plan to address problem: consider PEG tube Subjective Date of service: 08/20/16 Interval history: patient opening eyes on verbal stimuli, however remains non-verbal, moaning. Objective - Vital Signs Vital signs: Vital Signs - 12hr 08/19/16 08/20/16 08/20/16 23:00 00:37 01:07 Temperature 97.9 F Pulse Rate 65 Pulse Rate [ Apical] Pulse Rate [ 67 Left From Monitor] Respiratory 18 18 Rate Blood Pressure 173/77 [Left Arm] O2 Sat by Pulse 97 Oximetry 08/20/16 08/20/16 04:00 08:11 Temperature 98.2 F 97.5 F L Pulse Rate Pulse Rate [ 104 H Apical] Pulse Rate [ 76 Left From Monitor] Respiratory 18 20 Rate Blood Pressure 136/63 154/96 [Left Arm] O2 Sat by Pulse 97 100 Oximetry - General Appearance General appearance: cachectic, chronically ill, frail EENT: ATNC, PERRL, mucous membranes dry Neck: no JVD Respiratory: Present: Clear to Ascultation Cardiology: regular, S1S2 Gastrointestinal: normal, normoactive bowel sounds Integumentary: no rash, other (no edema ) Neurologic: confused, disoriented - Lab 08/20/16 08:49 08/20/16 08:49 Most recent lab results Calcium 7.3 mg/dL (8.4-10.2) L 08/20/16 08:49 Magnesium 1.3 mg/dL (1.7-2.3) L 08/19/16 05:00
[2016-08-20 11:28] LABS: Hemoglobin 6.2 gm/dl (10.1-14.3)
[2016-08-20 11:38] LABS: Hematocrit 18.8 % (30.3-42.9)
[2016-08-20] MEDS ORDERED: NACL 0.9% 500 ML 500 ML ONE (15:01)
[2016-08-20 15:40] LABS: BUN/Creatinine Ratio 25.38; Calcium 7.1 mg/dL (8.4-10.2); Chloride 112.5 mmol/L (98-107); Potassium 3.3 mmol/L (3.6-5.0)
--- NOTE | 2016-08-20 15:51 | Gastroenterology Consultation ---
Addendum entered and electronically signed by NOA SHOOK NP 08/20/16 16:22: Attempted to call son for consent. He did not answer and mailbox is not set up. Original Note: History of Present Illness - Reason for Consult Consult date: 08/20/16 PEG evaluation Requesting physician: NEHA MARK - History of Present Illness Ms Del Real is a 71 y/o female admitted from [facility] with failure to thrive, not eating and weakness. She was found to have bacteremia with beta hemolytic strep and UTI. 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 Her repeat Blood cultures are negative. She is currently in restraints and is not verbal. Past History Past Medical History: arthritis, DVT, hypertension, hyperlipidemia, stroke, other (ARF, urinary retention, RA, DVT metabolic encephalopathy, bladder neck obstruciton.) Past Surgical History: No surgical history Social history: full code, other ([place] resident ) Family history: other (unknown) Medications and Allergies Allergies Allergy/AdvReac Type Severity Reaction Status Date / Time No Known Allergies Allergy Unverified 08/13/16 15:50 Home Medications Medication Instructions Recorded Confirmed Last Taken Type Ditropan 10 mg PO DAILY 08/14/16 08/18/16 Unknown History Eliquis 2.5 mg PO DAILY 08/14/16 08/18/16 Unknown History Lasix TAB 40 mg PO DAILY 08/14/16 08/18/16 Unknown History Lisinopril 20 mg PO DAILY 08/14/16 08/18/16 Unknown History Lovastatin 10 mg PO DAILY 08/14/16 08/18/16 Unknown History Sertraline 50 mg PO DAILY 08/14/16 08/18/16 Unknown History Tylenol Arthritis 1,000 mg PO Q6HR PRN 08/14/16 08/18/16 Unknown History Zantac 150 MG TAB 150 mg PO DAILY 08/14/16 08/18/16 Unknown History Active Meds: Active Medications Acetaminophen (Tylenol) 650 mg PO Q6H PRN PRN Reason: Non Cardiac Pain or Temp>100.5 Acetaminophen/Hydrocodone Bitart ([place] 5/325) 1 each PO Q4H PRN PRN Reason: Pain, Moderate (4-6) Last Admin: 08/14/16 00:48 Dose: 1 each Lipase/Protease/Amylase (Pancreaze Dr 10,500 Unit) 1 each FEEDTUBE PRN PRN PRN Reason: For Clogged Feeding Tube Levofloxacin/Dextrose (Levaquin 750mg/150ml) 750 mg in 150 mls @ 100 mls/hr IV Q48HR JEAN PIERRE Stop: 08/26/16 11:59 Last Admin: 08/19/16 09:23 Dose: 100 mls/hr Dextrose (D5w) 1,000 mls @ 150 mls/hr IV DIRECT JEAN PIERRE Last Admin: 08/20/16 07:08 Dose: 150 mls/hr Morphine Sulfate (Morphine) 2 mg IV Q6H PRN PRN Reason: Pain, Moderate (4-6) Last Admin: 08/20/16 00:37 Dose: 2 mg Ondansetron HCl (Zofran) 4 mg IV Q4H PRN PRN Reason: Nausea And Vomiting Simple Syrup (Simple Syrup) 15 ml FEEDTUBE PRN PRN PRN Reason: Hypoglycemia Simple Syrup (Simple Syrup) 30 ml FEEDTUBE PRN PRN PRN Reason: Hypoglycemia Sodium Bicarbonate (Sodium Bicarbonate) 325 mg FEEDTUBE PRN PRN PRN Reason: For Clogged Feeding Tube Review of Systems - Review of Systems ROS unobtainable: due to mental status Exam - Constitutional Vital Signs: Temp Pulse Resp BP Pulse Ox 97.5 F L 81 20 130/87 100 08/20/16 15:31 08/20/16 15:31 08/20/16 15:31 08/20/16 15:31 08/20/16 15:31 General appearance: no acute distress, cachectic, temporal muscle wasting - EENT Eyes: EOM intact ENT: hearing intact - Neck Neck: supple - Respiratory Respiratory: bilateral: diminished - Cardiovascular Rhythm: regular Heart Sounds: Present: S1 & S2 Extremities: abnormal (contracted lower ext) - Gastrointestinal General gastrointestinal: Present: soft, tender, normal bowel sounds Rectal Exam: hemorrhoids - Integumentary Integumentary: Present: warm, dry - Neurologic Neurological: other (alert, nonverbal.) - Psychiatric Psychiatric: agitated - Labs CBC & Chem 7: 08/20/16 11:11 08/20/16 15:09 Lab Results: Laboratory Results - last 24 hr 08/20/16 08/20/16 08/20/16 08:49 08:49 11:11 WBC 14.4 H RBC 2.75 L Hgb 6.6 L 6.2 L Hct 20.9 L 18.8 L* MCV 76 L MCH 24 L MCHC 32 RDW 18.4 H Plt Count 102 L Lymph % (Auto) 13.2 L [place] % (Auto) 5.1 Eos % (Auto) 0.7 Baso % (Auto) 0.3 Lymph # 1.9 [place] # 0.7 Eos # 0.1 Baso # 0.0 Seg Neutrophils % 80.7 H Seg Neutrophils # 11.6 H Sodium 161 H* D Potassium 3.6 Chloride 117.4 H Carbon Dioxide 26 Anion Gap 21 BUN 37 H Creatinine 1.5 H Estimated GFR 41 BUN/Creatinine Ratio 24.66 Glucose 106 H Calcium 7.3 L Total Bilirubin 0.4 AST 20 ALT 14 Alkaline Phosphatase 103 Total Protein 6.2 L Albumin 2.3 L Albumin/Globulin Ratio 0.6 Blood Type Antibody Screen Crossmatch 08/20/16 08/20/16 11:11 15:09 WBC RBC Hgb Hct MCV MCH MCHC RDW Plt Count Lymph % (Auto) [place] % (Auto) Eos % (Auto) Baso % (Auto) Lymph # [place] # Eos # Baso # Seg Neutrophils % Seg Neutrophils # Sodium 153 H Potassium 3.3 L Chloride 112.5 H Carbon Dioxide 29 Anion Gap 15 BUN 33 H Creatinine 1.3 H Estimated GFR 49 BUN/Creatinine Ratio 25.38 Glucose 84 Calcium 7.1 L Total Bilirubin AST ALT Alkaline Phosphatase Total Protein Albumin Albumin/Globulin Ratio Blood Type B POSITIVE Antibody Screen Negative Crossmatch See Detail Assessment and Plan 1. Malnutrition - WIll need to contact NOK for consent -Patient will likely need transfusion prior to procedure. -WIll plan for PEG placement once consent obtained. -Hold blood thinning meds.
--- NOTE | 2016-08-20 16:04 | Progress Note ---
Assessment and Plan Assessment and plan: Severe Sepsis secondary to beta hemolytic streptococci -Managed according to sepsis protocol, IV ceftriaxone, IV fluids Acute kidney failure - Nephrology is consulted - IV fluid adjusted - Creatinine showed marked improvement Hypernatremia - On D5 W his sodium bicarbonate 150 ml/h - We will check BMP at 6 PM Acute metabolic encephalopathy - Supportive care Prophylaxis - Heparin CODE STATUS - FULL Disposition Continue inpatient care History Interval history: Patient was seen and evaluated this morning. Patient in non communicative and moaning. Hospitalist Physical - Physical exam Narrative exam: Not in cardiopulmonary distress. Patient moans Cachectic patient lying on the bed, on restraints. Vital signs as documented. Head exam is unremarkable. No scleral icterus . Neck is without jugular venous distension, thyromegaly, or carotid bruits. Lungs are clear to auscultation. Cardiac exam reveals regular rate and Rhythm. First and second heart sounds normal. No murmurs, rubs or gallops. Abdominal exam reveals normal bowel sounds, no masses, no organomegaly and no aortic enlargement. 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 - Constitutional Vitals: Temp Pulse Resp BP Pulse Ox 97.5 F L 81 20 130/87 100 08/20/16 15:31 08/20/16 15:31 08/20/16 15:31 08/20/16 15:31 08/20/16 15:31 General appearance: Present: mild distress, cachectic Results - Labs CBC & Chem 7: 08/20/16 11:11 08/20/16 15:09 Labs: Laboratory Last Values WBC 14.4 K/mm3 (4.5-11.0) H 08/20/16 08:49 RBC 2.75 M/mm3 (3.65-5.03) L 08/20/16 08:49 Hgb 6.2 gm/dl (10.1-14.3) L 08/20/16 11:11 Hct 18.8 % (30.3-42.9) L* 08/20/16 11:11 MCV 76 fl (79-97) L 08/20/16 08:49 MCH 24 pg (28-32) L 08/20/16 08:49 MCHC 32 % (30-34) 08/20/16 08:49 RDW 18.4 % (13.2-15.2) H 08/20/16 08:49 Plt Count 102 K/mm3 (140-440) L 08/20/16 08:49 Lymph % (Auto) 13.2 % (13.4-35.0) L 08/20/16 08:49 [place] % (Auto) 5.1 % (0.0-7.3) 08/20/16 08:49 Eos % (Auto) 0.7 % (0.0-4.3) 08/20/16 08:49 Baso % (Auto) 0.3 % (0.0-1.8) 08/20/16 08:49 Lymph # 1.9 K/mm3 (1.2-5.4) 08/20/16 08:49 [place] # 0.7 K/mm3 (0.0-0.8) 08/20/16 08:49 Eos # 0.1 K/mm3 (0.0-0.4) 08/20/16 08:49 Baso # 0.0 K/mm3 (0.0-0.1) 08/20/16 08:49 Add Manual Diff Complete 08/19/16 09:43 Total Counted 100 08/19/16 09:43 Seg Neutrophils % 80.7 % (40.0-70.0) H 08/20/16 08:49 Seg Neuts % (Manual) 86.0 % (40.0-70.0) H 08/19/16 09:43 Band Neutrophils % 0 % 08/19/16 09:43 Lymphocytes % (Manual) 14.0 % (13.4-35.0) 08/19/16 09:43 Reactive Lymphs % (Man) 0 % 08/19/16 09:43 Monocytes % (Manual) 0 % (0.0-7.3) 08/19/16 09:43 Eosinophils % (Manual) 0 % (0.0-4.3) 08/19/16 09:43 Basophils % (Manual) 0 % (0.0-1.8) 08/19/16 09:43 Metamyelocytes % 0 % 08/19/16 09:43 Myelocytes % 0 % 08/19/16 09:43 Promyelocytes % 0 % 08/19/16 09:43 Blast Cells % 0 % 08/19/16 09:43 Nucleated RBC % Not Reportable 08/19/16 09:43 Seg Neutrophils # 11.6 K/mm3 (1.8-7.7) H 08/20/16 08:49 Seg Neutrophils # Man 13.3 K/mm3 (1.8-7.7) H 08/19/16 09:43 Band Neutrophils # 0.0 K/mm3 08/19/16 09:43 Lymphocytes # (Manual) 2.2 K/mm3 (1.2-5.4) 08/19/16 09:43 Abs React Lymphs (Man) 0.0 K/mm3 08/19/16 09:43 Monocytes # (Manual) 0.0 K/mm3 (0.0-0.8) 08/19/16 09:43 Eosinophils # (Manual) 0.0 K/mm3 (0.0-0.4) 08/19/16 09:43 Basophils # (Manual) 0.0 K/mm3 (0.0-0.1) 08/19/16 09:43 Metamyelocytes # 0.0 K/mm3 08/19/16 09:43 Myelocytes # 0.0 K/mm3 08/19/16 09:43 Promyelocytes # 0.0 K/mm3 08/19/16 09:43 Blast Cells # 0.0 K/mm3 08/19/16 09:43 Pathologist Review 08/15/16 10:57 WBC Morphology Not Reportable 08/19/16 09:43 Hypersegmented Neuts Not Reportable 08/19/16 09:43 Hyposegmented Neuts Not Reportable 08/19/16 09:43 Hypogranular Neuts Not Reportable 08/19/16 09:43 Smudge Cells Not Reportable 08/19/16 09:43 Toxic Granulation Not Reportable 08/19/16 09:43 Toxic Vacuolation Not Reportable 08/19/16 09:43 Dohle Bodies Not Reportable 08/19/16 09:43 Pelger-Huet Anomaly Not Reportable 08/19/16 09:43 Celestine Rods Not Reportable 08/19/16 09:43 Platelet Estimate Cons 08/19/16 09:43 Clumped Platelets Not Reportable 08/19/16 09:43 Plt Clumps, EDTA Not Reportable 08/19/16 09:43 Large Platelets Few 08/19/16 09:43 Giant Platelets Not Reportable 08/19/16 09:43 Platelet Satelliting Not Reportable 08/19/16 09:43 Plt Morphology Comment Not Reportable 08/19/16 09:43 RBC Morphology Not Reportable 08/19/16 09:43 Dimorphic RBCs Not Reportable 08/19/16 09:43 Polychromasia Not Reportable 08/19/16 09:43 Hypochromasia 2+ 08/19/16 09:43 Poikilocytosis Not Reportable 08/19/16 09:43 Anisocytosis 1+ 08/19/16 09:43 Microcytosis Not Reportable 08/19/16 09:43 Macrocytosis Not Reportable 08/19/16 09:43 Spherocytes Not Reportable 08/19/16 09:43 Pappenheimer Bodies Not Reportable 08/19/16 09:43 Sickle Cells Not Reportable 08/19/16 09:43 Target Cells 1+ 08/19/16 09:43 Tear Drop Cells Not Reportable 08/19/16 09:43 Ovalocytes Not Reportable 08/19/16 09:43 Stomatocytes Few 08/17/16 07:25 Helmet Cells Not Reportable 08/19/16 09:43 [place] Bodies Not Reportable 08/19/16 09:43 [place] Rings Not Reportable 08/19/16 09:43 [place] Cells Not Reportable 08/19/16 09:43 Bite Cells Not Reportable 08/19/16 09:43 Crenated Cell Not Reportable 08/19/16 09:43 Elliptocytes Not Reportable 08/19/16 09:43 Acanthocytes (Spur) Not Reportable 08/19/16 09:43 Rouleaux Not Reportable 08/19/16 09:43 Hemoglobin C Crystals Not Reportable 08/19/16 09:43 Schistocytes Not Reportable 08/19/16 09:43 Malaria parasites Not Reportable 08/19/16 09:43 Isauro Bodies Not Reportable 08/19/16 09:43 Hem Pathologist Commnt No 08/19/16 09:43 Sodium 153 mmol/L (137-145) H 08/20/16 15:09 Potassium 3.3 mmol/L (3.6-5.0) L 08/20/16 15:09 Chloride 112.5 mmol/L (98-107) H 08/20/16 15:09 Carbon Dioxide 29 mmol/L (22-30) 08/20/16 15:09 Anion Gap 15 mmol/L 08/20/16 15:09 BUN 33 mg/dL (7-17) H 08/20/16 15:09 Creatinine 1.3 mg/dL (0.7-1.2) H 08/20/16 15:09 Estimated GFR 49 ml/min 08/20/16 15:09 BUN/Creatinine Ratio 25.38 % 08/20/16 15:09 Glucose 84 mg/dL (65-100) 08/20/16 15:09 POC Glucose 114 (70-105) H 08/14/16 20:50 Lactic Acid 2.5 mmol/L (0.7-2.0) H* 08/15/16 18:00 Calcium 7.1 mg/dL (8.4-10.2) L 08/20/16 15:09 Magnesium 1.3 mg/dL (1.7-2.3) L 08/19/16 05:00 Total Bilirubin 0.4 mg/dL (0.1-1.2) 08/20/16 08:49 AST 20 units/L (5-40) 08/20/16 08:49 ALT 14 units/L (7-56) 08/20/16 08:49 Alkaline Phosphatase 103 units/L (35-129) 08/20/16 08:49 Total Creatine Kinase 52 units/L (30-135) 08/13/16 14:30 NT-Pro-B Natriuret Pep 495.2 pg/mL (0-900) 08/13/16 14:30 Total Protein 6.2 g/dL (6.3-8.2) L 08/20/16 08:49 Albumin 2.3 g/dL (3.9-5) L 08/20/16 08:49 Albumin/Globulin Ratio 0.6 % 08/20/16 08:49 Urine Color Yellow (Yellow) 08/13/16 16:42 Urine Turbidity Cloudy (Clear) 08/13/16 16:42 Urine pH 7.0 (5.0-7.0) 08/13/16 16:42 Ur Specific [place] 1.009 (1.003-1.030) 08/13/16 16:42 Urine Protein 100 mg/dl mg/dL (Negative) 08/13/16 16:42 Urine Glucose (UA) Neg mg/dL (Negative) 08/13/16 16:42 Urine Ketones Neg mg/dL (Negative) 08/13/16 16:42 Urine Blood Mod (Negative) 08/13/16 16:42 Urine Nitrite Neg (Negative) 08/13/16 16:42 Urine Bilirubin Neg (Negative) 08/13/16 16:42 Urine Urobilinogen < 2.0 mg/dL (<2.0) 08/13/16 16:42 Ur Leukocyte Esterase Lg (Negative) 08/13/16 16:42 Urine WBC (Auto) 133.0 /HPF (0.0-6.0) H 08/13/16 16:42 Urine RBC (Auto) 5.0 /HPF (0.0-6.0) 08/13/16 16:42 U Epithel Cells (Auto) 1.0 /HPF (0-13.0) 08/13/16 16:42 Urine Bacteria (Auto) 4+ /HPF (Negative) 08/13/16 16:42 Urine Mucus Few /HPF 08/13/16 16:42 Random Vancomycin 8.6 ug/mL (0-40.0) 08/17/16 06:47 Blood Type B POSITIVE 08/20/16 11:11 Antibody Screen Negative 08/20/16 11:11 Crossmatch See Detail 08/20/16 11:11
--- NOTE | 2016-08-20 16:14 | Progress Note ---
Assessment and Plan Assessment and plan: Severe Sepsis secondary to beta hemolytic streptococci -Managed according to sepsis protocol, IV ceftriaxone, IV fluids Acute kidney failure - Nephrology is consulted - IV fluid adjusted - Creatinine showed marked improvement Hypernatremia - On D5 W his sodium bicarbonate 150 ml/h - We will check BMP at 6 PM Acute metabolic encephalopathy - Supportive care Severe anemia - will transfuse 2 units of blood Patient is NPO - GI consulted for PEG placement Prophylaxis - Heparin CODE STATUS - FULL, discussed with her next of kin and wanted everything to be done for her. The high probability of a clinically significant, sudden or life threatening deterioration of the [circulatory, Neurologic] system(s) required my full and direct attention, intervention and personal management. The aggregate critical care time was [31] minutes. This time is in addition to time spent performing reported procedures but includes the following: [x] Data Review and interpretation [x] Patient assessment and monitoring of vital signs [x] Documentation [x] Medication orders and management Disposition Continue inpatient care History Interval history: Patient was seen and evaluated this morning. Patient in non communicative and moaning. Hospitalist Physical - Physical exam Narrative exam: Not in cardiopulmonary distress. Patient moans Cachectic patient lying on the bed, on restraints. Vital signs as documented. Head exam is unremarkable. No scleral icterus . Neck is without jugular venous distension, thyromegaly, or carotid bruits. Lungs are clear to auscultation. Cardiac exam reveals regular rate and Rhythm. First and second heart sounds normal. No murmurs, rubs or gallops. Abdominal exam reveals normal bowel sounds, no masses, no organomegaly and no aortic enlargement. 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 - Constitutional Vitals: Temp Pulse Resp BP Pulse Ox 97.5 F L 81 20 130/87 100 08/20/16 15:31 08/20/16 15:31 08/20/16 15:31 08/20/16 15:31 08/20/16 15:31 General appearance: Present: mild distress, cachectic Results - Labs CBC & Chem 7: 08/20/16 11:11 08/20/16 15:09 Labs: Laboratory Last Values WBC 14.4 K/mm3 (4.5-11.0) H 08/20/16 08:49 RBC 2.75 M/mm3 (3.65-5.03) L 08/20/16 08:49 Hgb 6.2 gm/dl (10.1-14.3) L 08/20/16 11:11 Hct 18.8 % (30.3-42.9) L* 08/20/16 11:11 MCV 76 fl (79-97) L 08/20/16 08:49 MCH 24 pg (28-32) L 08/20/16 08:49 MCHC 32 % (30-34) 08/20/16 08:49 RDW 18.4 % (13.2-15.2) H 08/20/16 08:49 Plt Count 102 K/mm3 (140-440) L 08/20/16 08:49 Lymph % (Auto) 13.2 % (13.4-35.0) L 08/20/16 08:49 [place] % (Auto) 5.1 % (0.0-7.3) 08/20/16 08:49 Eos % (Auto) 0.7 % (0.0-4.3) 08/20/16 08:49 Baso % (Auto) 0.3 % (0.0-1.8) 08/20/16 08:49 Lymph # 1.9 K/mm3 (1.2-5.4) 08/20/16 08:49 [place] # 0.7 K/mm3 (0.0-0.8) 08/20/16 08:49 Eos # 0.1 K/mm3 (0.0-0.4) 08/20/16 08:49 Baso # 0.0 K/mm3 (0.0-0.1) 08/20/16 08:49 Add Manual Diff Complete 08/19/16 09:43 Total Counted 100 08/19/16 09:43 Seg Neutrophils % 80.7 % (40.0-70.0) H 08/20/16 08:49 Seg Neuts % (Manual) 86.0 % (40.0-70.0) H 08/19/16 09:43 Band Neutrophils % 0 % 08/19/16 09:43 Lymphocytes % (Manual) 14.0 % (13.4-35.0) 08/19/16 09:43 Reactive Lymphs % (Man) 0 % 08/19/16 09:43 Monocytes % (Manual) 0 % (0.0-7.3) 08/19/16 09:43 Eosinophils % (Manual) 0 % (0.0-4.3) 08/19/16 09:43 Basophils % (Manual) 0 % (0.0-1.8) 08/19/16 09:43 Metamyelocytes % 0 % 08/19/16 09:43 Myelocytes % 0 % 08/19/16 09:43 Promyelocytes % 0 % 08/19/16 09:43 Blast Cells % 0 % 08/19/16 09:43 Nucleated RBC % Not Reportable 08/19/16 09:43 Seg Neutrophils # 11.6 K/mm3 (1.8-7.7) H 08/20/16 08:49 Seg Neutrophils # Man 13.3 K/mm3 (1.8-7.7) H 08/19/16 09:43 Band Neutrophils # 0.0 K/mm3 08/19/16 09:43 Lymphocytes # (Manual) 2.2 K/mm3 (1.2-5.4) 08/19/16 09:43 Abs React Lymphs (Man) 0.0 K/mm3 08/19/16 09:43 Monocytes # (Manual) 0.0 K/mm3 (0.0-0.8) 08/19/16 09:43 Eosinophils # (Manual) 0.0 K/mm3 (0.0-0.4) 08/19/16 09:43 Basophils # (Manual) 0.0 K/mm3 (0.0-0.1) 08/19/16 09:43 Metamyelocytes # 0.0 K/mm3 08/19/16 09:43 Myelocytes # 0.0 K/mm3 08/19/16 09:43 Promyelocytes # 0.0 K/mm3 08/19/16 09:43 Blast Cells # 0.0 K/mm3 08/19/16 09:43 Pathologist Review 08/15/16 10:57 WBC Morphology Not Reportable 08/19/16 09:43 Hypersegmented Neuts Not Reportable 08/19/16 09:43 Hyposegmented Neuts Not Reportable 08/19/16 09:43 Hypogranular Neuts Not Reportable 08/19/16 09:43 Smudge Cells Not Reportable 08/19/16 09:43 Toxic Granulation Not Reportable 08/19/16 09:43 Toxic Vacuolation Not Reportable 08/19/16 09:43 Dohle Bodies Not Reportable 08/19/16 09:43 Pelger-Huet Anomaly Not Reportable 08/19/16 09:43 Celestine Rods Not Reportable 08/19/16 09:43 Platelet Estimate Cons 08/19/16 09:43 Clumped Platelets Not Reportable 08/19/16 09:43 Plt Clumps, EDTA Not Reportable 08/19/16 09:43 Large Platelets Few 08/19/16 09:43 Giant Platelets Not Reportable 08/19/16 09:43 Platelet Satelliting Not Reportable 08/19/16 09:43 Plt Morphology Comment Not Reportable 08/19/16 09:43 RBC Morphology Not Reportable 08/19/16 09:43 Dimorphic RBCs Not Reportable 08/19/16 09:43 Polychromasia Not Reportable 08/19/16 09:43 Hypochromasia 2+ 08/19/16 09:43 Poikilocytosis Not Reportable 08/19/16 09:43 Anisocytosis 1+ 08/19/16 09:43 Microcytosis Not Reportable 08/19/16 09:43 Macrocytosis Not Reportable 08/19/16 09:43 Spherocytes Not Reportable 08/19/16 09:43 Pappenheimer Bodies Not Reportable 08/19/16 09:43 Sickle Cells Not Reportable 08/19/16 09:43 Target Cells 1+ 08/19/16 09:43 Tear Drop Cells Not Reportable 08/19/16 09:43 Ovalocytes Not Reportable 08/19/16 09:43 Stomatocytes Few 08/17/16 07:25 Helmet Cells Not Reportable 08/19/16 09:43 Villal[place] Bodies Not Reportable 08/19/16 09:43 [place] Rings Not Reportable 08/19/16 09:43 [place] Cells Not Reportable 08/19/16 09:43 Bite Cells Not Reportable 08/19/16 09:43 Crenated Cell Not Reportable 08/19/16 09:43 Elliptocytes Not Reportable 08/19/16 09:43 Acanthocytes (Spur) Not Reportable 08/19/16 09:43 Rouleaux Not Reportable 08/19/16 09:43 Hemoglobin C Crystals Not Reportable 08/19/16 09:43 Schistocytes Not Reportable 08/19/16 09:43 Malaria parasites Not Reportable 08/19/16 09:43 Isauro Bodies Not Reportable 08/19/16 09:43 Hem Pathologist Commnt No 08/19/16 09:43 Sodium 153 mmol/L (137-145) H 08/20/16 15:09 Potassium 3.3 mmol/L (3.6-5.0) L 08/20/16 15:09 Chloride 112.5 mmol/L (98-107) H 08/20/16 15:09 Carbon Dioxide 29 mmol/L (22-30) 08/20/16 15:09 Anion Gap 15 mmol/L 08/20/16 15:09 BUN 33 mg/dL (7-17) H 08/20/16 15:09 Creatinine 1.3 mg/dL (0.7-1.2) H 08/20/16 15:09 Estimated GFR 49 ml/min 08/20/16 15:09 BUN/Creatinine Ratio 25.38 % 08/20/16 15:09 Glucose 84 mg/dL (65-100) 08/20/16 15:09 POC Glucose 114 (70-105) H 08/14/16 20:50 Lactic Acid 2.5 mmol/L (0.7-2.0) H* 08/15/16 18:00 Calcium 7.1 mg/dL (8.4-10.2) L 08/20/16 15:09 Magnesium 1.3 mg/dL (1.7-2.3) L 08/19/16 05:00 Total Bilirubin 0.4 mg/dL (0.1-1.2) 08/20/16 08:49 AST 20 units/L (5-40) 08/20/16 08:49 ALT 14 units/L (7-56) 08/20/16 08:49 Alkaline Phosphatase 103 units/L (35-129) 08/20/16 08:49 Total Creatine Kinase 52 units/L (30-135) 08/13/16 14:30 NT-Pro-B Natriuret Pep 495.2 pg/mL (0-900) 08/13/16 14:30 Total Protein 6.2 g/dL (6.3-8.2) L 08/20/16 08:49 Albumin 2.3 g/dL (3.9-5) L 08/20/16 08:49 Albumin/Globulin Ratio 0.6 % 08/20/16 08:49 Urine Color Yellow (Yellow) 08/13/16 16:42 Urine Turbidity Cloudy (Clear) 08/13/16 16:42 Urine pH 7.0 (5.0-7.0) 08/13/16 16:42 Ur Specific [place] 1.009 (1.003-1.030) 08/13/16 16:42 Urine Protein 100 mg/dl mg/dL (Negative) 08/13/16 16:42 Urine Glucose (UA) Neg mg/dL (Negative) 08/13/16 16:42 Urine Ketones Neg mg/dL (Negative) 08/13/16 16:42 Urine Blood Mod (Negative) 08/13/16 16:42 Urine Nitrite Neg (Negative) 08/13/16 16:42 Urine Bilirubin Neg (Negative) 08/13/16 16:42 Urine Urobilinogen < 2.0 mg/dL (<2.0) 08/13/16 16:42 Ur Leukocyte Esterase Lg (Negative) 08/13/16 16:42 Urine WBC (Auto) 133.0 /HPF (0.0-6.0) H 08/13/16 16:42 Urine RBC (Auto) 5.0 /HPF (0.0-6.0) 08/13/16 16:42 U Epithel Cells (Auto) 1.0 /HPF (0-13.0) 08/13/16 16:42 Urine Bacteria (Auto) 4+ /HPF (Negative) 08/13/16 16:42 Urine Mucus Few /HPF 08/13/16 16:42 Random Vancomycin 8.6 ug/mL (0-40.0) 08/17/16 06:47 Blood Type B POSITIVE 08/20/16 11:11 Antibody Screen Negative 08/20/16 11:11 Crossmatch See Detail 08/20/16 11:11 Hemoglobin is 6.5
[2016-08-20] MEDS ORDERED: ROCEPHIN/NS 2 GM/100 ML 100 ML IV ONE (16:17)
[2016-08-20] MEDS: ROCEPHIN/NS 1 GM/50 ML 1 GM/50 ML BAG IV SCH (18:00)
[2016-08-21 07:02] LABS: BUN/Creatinine Ratio 21.53; Calcium 6.8 mg/dL (8.4-10.2); Chloride 113.3 mmol/L (98-107); Potassium 3.3 mmol/L (3.6-5.0)
[2016-08-21 07:14] LABS: Basophils % (Auto) 0.1 % (0.0-1.8); Eosinophils % (Auto) 0.3 % (0.0-4.3); Hematocrit 33.4 % (30.3-42.9); Mean Corpuscular HGB Conc 33 % (30-34); Mean Corpuscular Hemoglobin 26 pg (28-32); Mean Corpuscular Volume 80 fl (79-97); Red Blood Count 4.16 M/mm3 (3.65-5.03); Red Cell Distribution Width 19.9 % (13.2-15.2); White Blood Count 14.3 K/mm3 (4.5-11.0)
[2016-08-21 07:15] LABS: Platelet Count 81 K/mm3 (140-440)
[2016-08-21] MEDS ORDERED: WATER FOR IRRIG STERILE IR ONE (07:18)
[2016-08-21] MEDS ORDERED: NACL 0.9% 1000 ML 1,000 ML IV SCH (08:00)
[2016-08-21] MEDS ORDERED: ANCEF/STERILE WATER 2 GM/20 ML 2 GM/20 ML SYRINGE IV NR (08:00)
--- NOTE | 2016-08-21 08:15 | Anesthesia Consultation ---
Anesthesia Consult and Med Hx Date of service: 08/21/16 - Pulmonary Exam CTA: Yes - Cardiac Exam Cardiac Exam: RRR - Pre-Operative Health Status ASA Pre-Surgery Classification: ASA3 Proposed Anesthetic Plan: MAC - Pre-Anesthesia Comment Pre-Anesthesia Comments: Pt is from [facility], nonverbal, FTT, dementia. - Cardiovascular System Hx Hypertension: Yes (high cholesterol) Hx Pacemaker: No Hx Internal Defibrillator: No - Central Nervous System CVA: Yes - Endocrine Hx Renal Disease: Yes (AKF)
[2016-08-21] MEDS: D5W 1,000 ML IV SCH ×2 (08:30→12:26)
[2016-08-21 09:26] LABS: INR 1.2 (0.87-1.13)
[2016-08-21 09:27] LABS: BUN/Creatinine Ratio 22.3; Calcium 6.6 mg/dL (8.4-10.2); Chloride 111.4 mmol/L (98-107)
[2016-08-21] MEDS ORDERED: AMIDATE IV ONE ×2 (09:28→09:48)
[2016-08-21] MEDS ORDERED: SUBLIMAZE ONE (09:28)
[2016-08-21] MEDS ORDERED: VERSED ONE (09:29)
[2016-08-21 09:54] LABS: Potassium 2.6 mmol/L (3.6-5.0)
[2016-08-21] MEDS ORDERED: KCL IV ONE (10:00)
--- NOTE | 2016-08-21 10:07 | Post Operative Note ---
Pre-op diagnosis: weight loss, dysphagia Post-op diagnosis: same Findings: EGD: hiatal hernia - gastritis - negative other - 18 F pull peg placed, bumper at 2 1/2 cm Procedure: egd/peg Anesthesia: MAC Surgeon: EMMANUEL AHUMADA Estimated blood loss: none Pathology: none Condition: stable Disposition: floor
--- NOTE | 2016-08-21 10:44 | Post Anesthesia Evaluation ---
- Post Anesthesia Evaluation Patient Participated: No Airway Patent: Yes Stable Respiratory Function: Yes Nausea/Vomiting: No Temp > 96.8F: Yes Pain Manageable: Yes Adequeate Hydration: Yes Anesthesia Complications: No Block Receding Appropriately: Not Applicable Patient on Ventilator: No
--- NOTE | 2016-08-21 10:46 | Operative Report ---
PROCEDURE: EGD with PEG tube placement. INDICATION: 1. Dysphagia. 2. Weight loss. 3. For PEG tube placement after failing speech evaluation. MEDICATIONS: Propofol per PRODUCT INTRODUCTION MANAGER. COMPLICATIONS: None. DESCRIPTION OF PROCEDURE: The patient brought to procedure suite. The patient had the procedure discussed with family who gave permission for the procedure to perform after all risks, benefits, and complications were discussed. The patient was placed in supine position. Mouth block was placed in oral cavity. After adequate sedation medication as above, endoscope was placed into the mouth and brought to the level of the second portion of duodenum. Retroflexion view performed. The patient's vital signs remained stable throughout the procedure. FINDINGS: There was noted to be a small to medium hiatal hernia at GE junction. The esophagus otherwise appeared to be normal. Mild gastritis noted in the stomach. The stomach otherwise appeared to be normal. The duodenum appeared to be normal. Retroflexion view performed in the stomach showed no other pathology other than noted above. After this, especially using standard technique and transillumination, an area for adequate placement of PEG tube was found. A 20-Turkmen pull PEG was then placed. Bumper was noted to be at 2.5 cm. Postprocedure, the patient was satisfactory. The patient tolerated the procedure well. No complications during the procedure. IMPRESSION: 1. Hiatal hernia. 2. Mild gastritis. 3. Otherwise, normal EGD. 4. Percutaneous endoscopic gastrostomy tube placement without obvious complications. RECOMMENDATIONS: 1. Standard PEG tube management, see chart. 2. Watch for signs of bleeding or infection. 3. We will follow up in a.m. [facility]# [id number] [facility] [place]
[2016-08-21] MEDS ORDERED: KCL 20MEQ/100ML 100 ML IV SCH (11:00)
[2016-08-21] MEDS: KCL 10MEQ/100ML 40 MEQ/400 ML BAG IV SCH ×4 (12:30→16:34)
--- NOTE | 2016-08-21 15:21 | Progress Note ---
Assessment and Plan - Patient Problems (1) Acute renal failure Current Visit: Yes Status: Acute Qualifiers: Acute renal failure type: with other specified pathological lesion Qualified Code(s): N17.8 - Other acute kidney failure Plan to address problem: acute renal failure most likely due to pre-renal azotemia and obstructive nephrotpathy, renal function improving on IVF/ryan. continue ryan. recommend consult. na improving at adequate rate, continue D5W, until G-tube feeding/hydration is started Supportive care for ABDI avoid nephrotoxins, NSAIDs, IV contrast D/w Dr. Cobian (2) Hydronephrosis Current Visit: Yes Status: Acute Qualifiers: Hydronephrosis type: H Plan to address problem: severely dilated bladder noted on CT, continue ryan, consider consult (3) Acute UTI (urinary tract infection) Current Visit: Yes Status: Acute Plan to address problem: continue ABX treatment with levaquin, dose renally adjusted. (4) Hypernatremia Current Visit: Yes Status: Acute Plan to address problem: na improved to 152, continue D5W at 100ml/hr until free water flushes can be administered via PEG. (5) Metabolic acidosis Current Visit: Yes Status: Acute Plan to address problem: resolved w bicarb gtt (6) Hypokalemia Current Visit: Yes Status: Acute Plan to address problem: Iv KCl being administered (7) Dehydration Current Visit: Yes Status: Acute (8) Encephalopathy acute Current Visit: Yes Status: Acute (9) Protein-calorie malnutrition, severe Current Visit: Yes Status: Acute Plan to address problem: initiate PEG feeding, once cleared by GI Subjective Date of service: 08/21/16 Interval history: patient remains lethargic, non-verbal. s/p PEG placement this AM. Objective - Vital Signs Vital signs: Vital Signs - 12hr 08/21/16 08/21/16 08/21/16 05:56 07:50 10:09 Temperature 98.7 F 97.4 F L 98 F Pulse Rate 59 L 59 L Pulse Rate [ 57 L Apical] Pulse Rate [ Left] Respiratory 14 17 18 Rate Blood Pressure 131/59 105/66 Blood Pressure 140/66 [Left Arm] O2 Sat by Pulse 94 100 95 Oximetry 08/21/16 08/21/16 08/21/16 10:22 10:37 11:05 Temperature 97.9 F Pulse Rate 65 67 Pulse Rate [ Apical] Pulse Rate [ 68 Left] Respiratory 17 20 18 Rate Blood Pressure 98/52 94/53 Blood Pressure 112/70 [Left Arm] O2 Sat by Pulse 95 92 97 Oximetry - General Appearance General appearance: cachectic, chronically ill, frail EENT: ATNC, PERRL, mucous membranes dry Neck: no JVD Respiratory: Present: Clear to Ascultation Cardiology: regular, S1S2 Gastrointestinal: normal, other (PEG in place ) Integumentary: no rash, other (no edema ) Neurologic: confused, disoriented - Lab 08/21/16 06:11 08/21/16 09:11 Most recent lab results Calcium 6.6 mg/dL (8.4-10.2) L 08/21/16 09:11 Magnesium 1.3 mg/dL (1.7-2.3) L 08/19/16 05:00
--- NOTE | 2016-08-21 17:11 | Progress Note ---
Assessment and Plan Assessment and plan: Severe Sepsis secondary to beta hemolytic streptococci -Managed according to sepsis protocol, IV ceftriaxone, IV fluids Acute kidney failure - Nephrology is consulted - IV fluid adjusted - Improving Hypernatremia - On D5 W - improved - Will start tube feeding Acute metabolic encephalopathy - Supportive care - Showed some improvement Severe anemia - transfused 2 units of blood - Today's hemoglobin 11, there should be some lab error - Will repeat CBC in the morning Severe Hypokalemia - repleted - Will check potassium Patient is NPO - GI consulted for PEG placement and placed this morning Prophylaxis - Heparin CODE STATUS - FULL, discussed with her next of kin and wanted everything to be done for her. History Interval history: Patient was seen and evaluated this morning. Patient didn't talked to me but looks more alert. Hospitalist Physical - Physical exam Narrative exam: Not in cardiopulmonary distress. Patient looks more alert Cachectic patient lying on the bed, on restraints. Vital signs as documented. Head exam is unremarkable. No scleral icterus . Neck is without jugular venous distension, thyromegaly, or carotid bruits. Lungs are clear to auscultation. Cardiac exam reveals regular rate and Rhythm. First and second heart sounds normal. No murmurs, rubs or gallops. Abdominal examPEG placed this morning. Extremities Contracted. MANAGER ACTUARIAL: Patient is non communicative, agitated, on restraints. - Constitutional Vitals: Temp Pulse Resp BP Pulse Ox 97.9 F 68 18 112/70 97 08/21/16 11:05 08/21/16 12:00 08/21/16 11:05 08/21/16 11:05 08/21/16 11:05 General appearance: Present: mild distress, cachectic Results - Labs CBC & Chem 7: 08/21/16 06:11 08/21/16 09:11 Labs: Laboratory Last Values WBC 14.3 K/mm3 (4.5-11.0) H 08/21/16 06:11 RBC 4.16 M/mm3 (3.65-5.03) 08/21/16 06:11 Hgb 11.0 gm/dl (10.1-14.3) D 08/21/16 06:11 Hct 33.4 % (30.3-42.9) D 08/21/16 06:11 MCV 80 fl (79-97) D 08/21/16 06:11 MCH 26 pg (28-32) L 08/21/16 06:11 MCHC 33 % (30-34) 08/21/16 06:11 RDW 19.9 % (13.2-15.2) H 08/21/16 06:11 Plt Count 81 K/mm3 (140-440) L 08/21/16 06:11 Lymph % (Auto) 10.6 % (13.4-35.0) L 08/21/16 06:11 [place] % (Auto) 4.8 % (0.0-7.3) 08/21/16 06:11 Eos % (Auto) 0.3 % (0.0-4.3) 08/21/16 06:11 Baso % (Auto) 0.1 % (0.0-1.8) 08/21/16 06:11 Lymph # 1.5 K/mm3 (1.2-5.4) 08/21/16 06:11 [place] # 0.7 K/mm3 (0.0-0.8) 08/21/16 06:11 Eos # 0.0 K/mm3 (0.0-0.4) 08/21/16 06:11 Baso # 0.0 K/mm3 (0.0-0.1) 08/21/16 06:11 Add Manual Diff Complete 08/19/16 09:43 Total Counted 100 08/19/16 09:43 Seg Neutrophils % 84.2 % (40.0-70.0) H 08/21/16 06:11 Seg Neuts % (Manual) 86.0 % (40.0-70.0) H 08/19/16 09:43 Band Neutrophils % 0 % 08/19/16 09:43 Lymphocytes % (Manual) 14.0 % (13.4-35.0) 08/19/16 09:43 Reactive Lymphs % (Man) 0 % 08/19/16 09:43 Monocytes % (Manual) 0 % (0.0-7.3) 08/19/16 09:43 Eosinophils % (Manual) 0 % (0.0-4.3) 08/19/16 09:43 Basophils % (Manual) 0 % (0.0-1.8) 08/19/16 09:43 Metamyelocytes % 0 % 08/19/16 09:43 Myelocytes % 0 % 08/19/16 09:43 Promyelocytes % 0 % 08/19/16 09:43 Blast Cells % 0 % 08/19/16 09:43 Nucleated RBC % Not Reportable 08/19/16 09:43 Seg Neutrophils # 12.1 K/mm3 (1.8-7.7) H 08/21/16 06:11 Seg Neutrophils # Man 13.3 K/mm3 (1.8-7.7) H 08/19/16 09:43 Band Neutrophils # 0.0 K/mm3 08/19/16 09:43 Lymphocytes # (Manual) 2.2 K/mm3 (1.2-5.4) 08/19/16 09:43 Abs React Lymphs (Man) 0.0 K/mm3 08/19/16 09:43 Monocytes # (Manual) 0.0 K/mm3 (0.0-0.8) 08/19/16 09:43 Eosinophils # (Manual) 0.0 K/mm3 (0.0-0.4) 08/19/16 09:43 Basophils # (Manual) 0.0 K/mm3 (0.0-0.1) 08/19/16 09:43 Metamyelocytes # 0.0 K/mm3 08/19/16 09:43 Myelocytes # 0.0 K/mm3 08/19/16 09:43 Promyelocytes # 0.0 K/mm3 08/19/16 09:43 Blast Cells # 0.0 K/mm3 08/19/16 09:43 Pathologist Review 08/15/16 10:57 WBC Morphology Not Reportable 08/19/16 09:43 Hypersegmented Neuts Not Reportable 08/19/16 09:43 Hyposegmented Neuts Not Reportable 08/19/16 09:43 Hypogranular Neuts Not Reportable 08/19/16 09:43 Smudge Cells Not Reportable 08/19/16 09:43 Toxic Granulation Not Reportable 08/19/16 09:43 Toxic Vacuolation Not Reportable 08/19/16 09:43 Dohle Bodies Not Reportable 08/19/16 09:43 Pelger-Huet Anomaly Not Reportable 08/19/16 09:43 Celestine Rods Not Reportable 08/19/16 09:43 Platelet Estimate Cons 08/19/16 09:43 Clumped Platelets Not Reportable 08/19/16 09:43 Plt Clumps, EDTA Not Reportable 08/19/16 09:43 Large Platelets Few 08/19/16 09:43 Giant Platelets Not Reportable 08/19/16 09:43 Platelet Satelliting Not Reportable 08/19/16 09:43 Plt Morphology Comment Not Reportable 08/19/16 09:43 RBC Morphology Not Reportable 08/19/16 09:43 Dimorphic RBCs Not Reportable 08/19/16 09:43 Polychromasia Not Reportable 08/19/16 09:43 Hypochromasia 2+ 08/19/16 09:43 Poikilocytosis Not Reportable 08/19/16 09:43 Anisocytosis 1+ 08/19/16 09:43 Microcytosis Not Reportable 08/19/16 09:43 Macrocytosis Not Reportable 08/19/16 09:43 Spherocytes Not Reportable 08/19/16 09:43 Pappenheimer Bodies Not Reportable 08/19/16 09:43 Sickle Cells Not Reportable 08/19/16 09:43 Target Cells 1+ 08/19/16 09:43 Tear Drop Cells Not Reportable 08/19/16 09:43 Ovalocytes Not Reportable 08/19/16 09:43 Stomatocytes Few 08/17/16 07:25 Helmet Cells Not Reportable 08/19/16 09:43 [place] Bodies Not Reportable 08/19/16 09:43 [place] Rings Not Reportable 08/19/16 09:43 [place] Cells Not Reportable 08/19/16 09:43 Bite Cells Not Reportable 08/19/16 09:43 Crenated Cell Not Reportable 08/19/16 09:43 Elliptocytes Not Reportable 08/19/16 09:43 Acanthocytes (Spur) Not Reportable 08/19/16 09:43 Rouleaux Not Reportable 08/19/16 09:43 Hemoglobin C Crystals Not Reportable 08/19/16 09:43 Schistocytes Not Reportable 08/19/16 09:43 Malaria parasites Not Reportable 08/19/16 09:43 Isauro Bodies Not Reportable 08/19/16 09:43 Hem Pathologist Commnt No 08/19/16 09:43 PT 15.1 Sec. (12.2-14.9) H 08/21/16 09:11 INR 1.20 (0.87-1.13) H 08/21/16 09:11 Sodium 152 mmol/L (137-145) H 08/21/16 09:11 Potassium 2.6 mmol/L (3.6-5.0) L* D 08/21/16 09:11 Chloride 111.4 mmol/L (98-107) H 08/21/16 09:11 Carbon Dioxide 28 mmol/L (22-30) 08/21/16 09:11 Anion Gap 15 mmol/L 08/21/16 09:11 BUN 29 mg/dL (7-17) H 08/21/16 09:11 Creatinine 1.3 mg/dL (0.7-1.2) H 08/21/16 09:11 Estimated GFR 49 ml/min 08/21/16 09:11 BUN/Creatinine Ratio 22.30 % 08/21/16 09:11 Glucose 101 mg/dL (65-100) H 08/21/16 09:11 POC Glucose 114 (70-105) H 08/14/16 20:50 Lactic Acid 2.5 mmol/L (0.7-2.0) H* 08/15/16 18:00 Calcium 6.6 mg/dL (8.4-10.2) L 08/21/16 09:11 Magnesium 1.3 mg/dL (1.7-2.3) L 08/19/16 05:00 Total Bilirubin 0.4 mg/dL (0.1-1.2) 08/20/16 08:49 AST 20 units/L (5-40) 08/20/16 08:49 ALT 14 units/L (7-56) 08/20/16 08:49 Alkaline Phosphatase 103 units/L (35-129) 08/20/16 08:49 Total Creatine Kinase 52 units/L (30-135) 08/13/16 14:30 NT-Pro-B Natriuret Pep 495.2 pg/mL (0-900) 08/13/16 14:30 Total Protein 6.2 g/dL (6.3-8.2) L 08/20/16 08:49 Albumin 2.3 g/dL (3.9-5) L 08/20/16 08:49 Albumin/Globulin Ratio 0.6 % 08/20/16 08:49 Urine Color Yellow (Yellow) 08/13/16 16:42 Urine Turbidity Cloudy (Clear) 08/13/16 16:42 Urine pH 7.0 (5.0-7.0) 08/13/16 16:42 Ur Specific [place] 1.009 (1.003-1.030) 08/13/16 16:42 Urine Protein 100 mg/dl mg/dL (Negative) 08/13/16 16:42 Urine Glucose (UA) Neg mg/dL (Negative) 08/13/16 16:42 Urine Ketones Neg mg/dL (Negative) 08/13/16 16:42 Urine Blood Mod (Negative) 08/13/16 16:42 Urine Nitrite Neg (Negative) 08/13/16 16:42 Urine Bilirubin Neg (Negative) 08/13/16 16:42 Urine Urobilinogen < 2.0 mg/dL (<2.0) 08/13/16 16:42 Ur Leukocyte Esterase Lg (Negative) 08/13/16 16:42 Urine WBC (Auto) 133.0 /HPF (0.0-6.0) H 08/13/16 16:42 Urine RBC (Auto) 5.0 /HPF (0.0-6.0) 08/13/16 16:42 U Epithel Cells (Auto) 1.0 /HPF (0-13.0) 08/13/16 16:42 Urine Bacteria (Auto) 4+ /HPF (Negative) 08/13/16 16:42 Urine Mucus Few /HPF 08/13/16 16:42 Random Vancomycin 8.6 ug/mL (0-40.0) 08/17/16 06:47 Blood Type B POSITIVE 08/20/16 11:11 Antibody Screen Negative 08/20/16 11:11 Crossmatch See Detail 08/20/16 11:11 Severe hypokalemia
[2016-08-21] MEDS: ROCEPHIN/NS 1 GM/50 ML 1 GM/50 ML BAG IV SCH (19:37)
[2016-08-21] MEDS: KCL 10MEQ/100ML 10 MEQ/100 ML BAG IV SCH ×3 (19:50→23:21)
[2016-08-21] MEDS ORDERED: D50W (25GM) IV ONE (23:41)
[2016-08-21] MEDS ORDERED: D5/0.45NS 1,000 ML IV SCH (23:45)
[2016-08-22] MEDS: D5/0.45NS 1,000 ML IV SCH ×2 (00:01→14:56)
[2016-08-22] MEDS: KCL 10MEQ/100ML 10 MEQ/100 ML BAG IV SCH (00:40)
[2016-08-22 01:18] LABS: Hematocrit 35.9 % (30.3-42.9); Hemoglobin 11.7 gm/dl (10.1-14.3); Mean Corpuscular HGB Conc 33 % (30-34); Mean Corpuscular Hemoglobin 26 pg (28-32); Mean Corpuscular Volume 81 fl (79-97); Red Blood Count 4.45 M/mm3 (3.65-5.03); Red Cell Distribution Width 19.9 % (13.2-15.2); White Blood Count 18.3 K/mm3 (4.5-11.0)
[2016-08-22 01:34] LABS: Platelet Count 88 K/mm3 (140-440)
[2016-08-22 01:36] LABS: BUN/Creatinine Ratio 22.3; Calcium 6.9 mg/dL (8.4-10.2); Chloride 105.9 mmol/L (98-107)
[2016-08-22 01:51] LABS: Potassium 3.9 mmol/L (3.6-5.0)
[2016-08-22] MEDS ORDERED: SIMPLE SYRUP FEEDTUBE PRN ×2 (10:09)
[2016-08-22] MEDS ORDERED: SODIUM BICARBONATE FEEDTUBE PRN (10:09)
[2016-08-22] MEDS ORDERED: PANCREAZE DR 10,500 UNIT FEEDTUBE PRN (10:09)
--- NOTE | 2016-08-22 12:13 | Progress Note ---
Assessment and Plan - Patient Problems (1) Acute renal failure Current Visit: Yes Status: Acute Qualifiers: Acute renal failure type: with other specified pathological lesion Qualified Code(s): N17.8 - Other acute kidney failure Plan to address problem: acute renal failure most likely due to pre-renal azotemia and obstructive nephrotpathy, renal function improving on IVF/ryan. continue ryan. recommend consult. Na improving, but still elevated, continue hypotonic IVF until PEG tube feeds adequate. Supportive care for ABDI avoid nephrotoxins, NSAIDs, IV contrast. (2) Hydronephrosis Current Visit: Yes Status: Acute Qualifiers: Hydronephrosis type: H Plan to address problem: severely dilated bladder noted on CT, continue ryan, consider consult (3) Acute UTI (urinary tract infection) Current Visit: Yes Status: Acute Plan to address problem: continue ABX treatment with levaquin, dose renally adjusted. (4) Hypernatremia Current Visit: Yes Status: Acute Plan to address problem: na improved to 151, continue D5 1/2NS until adequate free water flushes can be administered via PEG. (5) Metabolic acidosis Current Visit: Yes Status: Acute Plan to address problem: resolved (6) Hypokalemia Current Visit: Yes Status: Acute Plan to address problem: resolved with K supplementation (7) Dehydration Current Visit: Yes Status: Acute (8) Encephalopathy acute Current Visit: Yes Status: Acute (9) Protein-calorie malnutrition, severe Current Visit: Yes Status: Acute Plan to address problem: starg PEG feeding as tolerated Subjective Date of service: 08/22/16 Interval history: pt s/p PEG placement, remains confused, non-verbal Objective - Vital Signs Vital signs: Vital Signs - 12hr 08/22/16 08/22/16 08/22/16 00:33 04:14 09:59 Temperature 97.8 F 97.9 F 98.4 F Pulse Rate Pulse Rate [ 78 Apical] Pulse Rate [ 71 90 Left] Respiratory 18 18 20 Rate Blood Pressure 96/55 104/55 133/63 [Left Arm] O2 Sat by Pulse 97 97 Oximetry 08/22/16 10:00 Temperature Pulse Rate 64 Pulse Rate [ Apical] Pulse Rate [ Left] Respiratory 20 Rate Blood Pressure [Left Arm] O2 Sat by Pulse 96 Oximetry - General Appearance General appearance: cachectic, chronically ill, frail EENT: ATNC, PERRL, mucous membranes moist Neck: no JVD Respiratory: Present: Clear to Ascultation Cardiology: regular, S1S2 Gastrointestinal: normal, normoactive bowel sounds, other (PEG in place ) Integumentary: no rash, other (no edema ) Neurologic: confused, disoriented - Lab 08/22/16 00:57 08/22/16 00:57 Most recent lab results Calcium 6.9 mg/dL (8.4-10.2) L 08/22/16 00:57 Magnesium 1.0 mg/dL (1.7-2.3) L 08/22/16 00:57
[2016-08-22] MEDS ORDERED: D50W (25GM) IV ONE (12:38)
[2016-08-22] MEDS: D50W (25GM) IV PRN (12:40)
--- NOTE | 2016-08-22 14:17 | Progress Note ---
Assessment and Plan 1. s/p PEG placement - site looks good. Unsure why pt had vomiting. Recommend resuming G-tube feedings again at slow rate of 10 ml/hr, and increase as tolerated. EGD did not show gastric outlet obstruction. Subjective Date of service: 08/22/16 Interval history: Per RN, pt had vomiting, and had TF held my Hospitalist, while low glucose being treated. Objective - Constitutional Vitals: Vital Signs - 12hr 08/22/16 08/22/16 08/22/16 04:14 09:59 10:00 Temperature 97.9 F 98.4 F Pulse Rate 64 Pulse Rate [ 78 Apical] Pulse Rate [ 90 Left] Respiratory 18 20 20 Rate Blood Pressure 104/55 133/63 [Left Arm] O2 Sat by Pulse 97 96 Oximetry General appearance: Present: no acute distress - EENT Eyes: PERRL, EOM intact ENT: hearing intact - Gastrointestinal General gastrointestinal: Present: soft, normal bowel sounds, other (G-tube bumper loosened. Site clean with no drainage.) - Labs CBC & Chem 7: 08/22/16 00:57 08/22/16 00:57 Labs: Abnormal lab results 08/21/16 08/22/16 08/22/16 Range/Units 23:43 00:57 00:57 WBC 18.3 H (4.5-11.0) K/mm3 MCH 26 L (28-32) pg RDW 19.9 H (13.2-15.2) % Plt Count 88 L (140-440) K/mm3 Sodium 151 H (137-145) mmol/L Carbon Dioxide 31 H (22-30) mmol/L BUN 29 H (7-17) mg/dL Creatinine 1.3 H (0.7-1.2) mg/dL Glucose 174 H (65-100) mg/dL POC Glucose < 40 L (70-105) Calcium 6.9 L (8.4-10.2) mg/dL Magnesium (1.7-2.3) mg/dL 08/22/16 08/22/16 Range/Units 00:57 01:26 WBC (4.5-11.0) K/mm3 MCH (28-32) pg RDW (13.2-15.2) % Plt Count (140-440) K/mm3 Sodium (137-145) mmol/L Carbon Dioxide (22-30) mmol/L BUN (7-17) mg/dL Creatinine (0.7-1.2) mg/dL Glucose (65-100) mg/dL POC Glucose 143 H (70-105) Calcium (8.4-10.2) mg/dL Magnesium 1.0 L (1.7-2.3) mg/dL
[2016-08-22] MEDS: MORPHINE IV PRN (14:58)
--- NOTE | 2016-08-22 16:09 | Progress Note ---
Assessment and Plan Assessment and plan: Severe Sepsis secondary to beta hemolytic streptococci -Managed according to sepsis protocol, IV ceftriaxone, IV fluids Acute kidney failure - Nephrology is consulted - IV fluid adjusted - Improving Hypernatremia - On D5 W - improved - Will start tube feeding Acute metabolic encephalopathy - Supportive care - improved Severe anemia - transfused 2 units of blood - hemoglobin 11, there should be some lab error Severe Hypokalemia - repleted - Will check potassium Patient is NPO - GI consulted for PEG placement and placed this morning Prophylaxis - Heparin CODE STATUS - FULL, discussed with her next of kin and wanted everything to be done for her. History Interval history: Patient was seen and evaluated this morning. Patient was alert and admitted for vomiting. Hospitalist Physical - Physical exam Narrative exam: Not in cardiopulmonary distress. Patient is alert Cachectic patient lying on the bed Vital signs as documented. Head exam is unremarkable. No scleral icterus . Neck is without jugular venous distension, thyromegaly, or carotid bruits. Lungs are clear to auscultation. Cardiac exam reveals regular rate and Rhythm. First and second heart sounds normal. No murmurs, rubs or gallops. Abdominal examPEG placed this morning. Extremities no edema. 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 - Constitutional Vitals: Temp Pulse Resp BP Pulse Ox 98.4 F 64 20 133/63 96 08/22/16 09:59 08/22/16 10:00 08/22/16 14:58 08/22/16 09:59 08/22/16 10:00 General appearance: Present: no acute distress Results - Labs CBC & Chem 7: 08/22/16 00:57 08/22/16 00:57 Labs: Laboratory Last Values WBC 18.3 K/mm3 (4.5-11.0) H 08/22/16 00:57 RBC 4.45 M/mm3 (3.65-5.03) 08/22/16 00:57 Hgb 11.7 gm/dl (10.1-14.3) 08/22/16 00:57 Hct 35.9 % (30.3-42.9) 08/22/16 00:57 MCV 81 fl (79-97) 08/22/16 00:57 MCH 26 pg (28-32) L 08/22/16 00:57 MCHC 33 % (30-34) 08/22/16 00:57 RDW 19.9 % (13.2-15.2) H 08/22/16 00:57 Plt Count 88 K/mm3 (140-440) L 08/22/16 00:57 Lymph % (Auto) 10.6 % (13.4-35.0) L 08/21/16 06:11 [place] % (Auto) 4.8 % (0.0-7.3) 08/21/16 06:11 Eos % (Auto) 0.3 % (0.0-4.3) 08/21/16 06:11 Baso % (Auto) 0.1 % (0.0-1.8) 08/21/16 06:11 Lymph # 1.5 K/mm3 (1.2-5.4) 08/21/16 06:11 [place] # 0.7 K/mm3 (0.0-0.8) 08/21/16 06:11 Eos # 0.0 K/mm3 (0.0-0.4) 08/21/16 06:11 Baso # 0.0 K/mm3 (0.0-0.1) 08/21/16 06:11 Add Manual Diff Complete 08/19/16 09:43 Total Counted 100 08/19/16 09:43 Seg Neutrophils % 84.2 % (40.0-70.0) H 08/21/16 06:11 Seg Neuts % (Manual) 86.0 % (40.0-70.0) H 08/19/16 09:43 Band Neutrophils % 0 % 08/19/16 09:43 Lymphocytes % (Manual) 14.0 % (13.4-35.0) 08/19/16 09:43 Reactive Lymphs % (Man) 0 % 08/19/16 09:43 Monocytes % (Manual) 0 % (0.0-7.3) 08/19/16 09:43 Eosinophils % (Manual) 0 % (0.0-4.3) 08/19/16 09:43 Basophils % (Manual) 0 % (0.0-1.8) 08/19/16 09:43 Metamyelocytes % 0 % 08/19/16 09:43 Myelocytes % 0 % 08/19/16 09:43 Promyelocytes % 0 % 08/19/16 09:43 Blast Cells % 0 % 08/19/16 09:43 Nucleated RBC % Not Reportable 08/19/16 09:43 Seg Neutrophils # 12.1 K/mm3 (1.8-7.7) H 08/21/16 06:11 Seg Neutrophils # Man 13.3 K/mm3 (1.8-7.7) H 08/19/16 09:43 Band Neutrophils # 0.0 K/mm3 08/19/16 09:43 Lymphocytes # (Manual) 2.2 K/mm3 (1.2-5.4) 08/19/16 09:43 Abs React Lymphs (Man) 0.0 K/mm3 08/19/16 09:43 Monocytes # (Manual) 0.0 K/mm3 (0.0-0.8) 08/19/16 09:43 Eosinophils # (Manual) 0.0 K/mm3 (0.0-0.4) 08/19/16 09:43 Basophils # (Manual) 0.0 K/mm3 (0.0-0.1) 08/19/16 09:43 Metamyelocytes # 0.0 K/mm3 08/19/16 09:43 Myelocytes # 0.0 K/mm3 08/19/16 09:43 Promyelocytes # 0.0 K/mm3 08/19/16 09:43 Blast Cells # 0.0 K/mm3 08/19/16 09:43 Pathologist Review 08/15/16 10:57 WBC Morphology Not Reportable 08/19/16 09:43 Hypersegmented Neuts Not Reportable 08/19/16 09:43 Hyposegmented Neuts Not Reportable 08/19/16 09:43 Hypogranular Neuts Not Reportable 08/19/16 09:43 Smudge Cells Not Reportable 08/19/16 09:43 Toxic Granulation Not Reportable 08/19/16 09:43 Toxic Vacuolation Not Reportable 08/19/16 09:43 Dohle Bodies Not Reportable 08/19/16 09:43 Pelger-Huet Anomaly Not Reportable 08/19/16 09:43 Celestine Rods Not Reportable 08/19/16 09:43 Platelet Estimate Cons 08/19/16 09:43 Clumped Platelets Not Reportable 08/19/16 09:43 Plt Clumps, EDTA Not Reportable 08/19/16 09:43 Large Platelets Few 08/19/16 09:43 Giant Platelets Not Reportable 08/19/16 09:43 Platelet Satelliting Not Reportable 08/19/16 09:43 Plt Morphology Comment Not Reportable 08/19/16 09:43 RBC Morphology Not Reportable 08/19/16 09:43 Dimorphic RBCs Not Reportable 08/19/16 09:43 Polychromasia Not Reportable 08/19/16 09:43 Hypochromasia 2+ 08/19/16 09:43 Poikilocytosis Not Reportable 08/19/16 09:43 Anisocytosis 1+ 08/19/16 09:43 Microcytosis Not Reportable 08/19/16 09:43 Macrocytosis Not Reportable 08/19/16 09:43 Spherocytes Not Reportable 08/19/16 09:43 Pappenheimer Bodies Not Reportable 08/19/16 09:43 Sickle Cells Not Reportable 08/19/16 09:43 Target Cells 1+ 08/19/16 09:43 Tear Drop Cells Not Reportable 08/19/16 09:43 Ovalocytes Not Reportable 08/19/16 09:43 Stomatocytes Few 08/17/16 07:25 Helmet Cells Not Reportable 08/19/16 09:43 Villalobos-Ray Bodies Not Reportable 08/19/16 09:43 [place] Rings Not Reportable 08/19/16 09:43 [place] Cells Not Reportable 08/19/16 09:43 Bite Cells Not Reportable 08/19/16 09:43 Crenated Cell Not Reportable 08/19/16 09:43 Elliptocytes Not Reportable 08/19/16 09:43 Acanthocytes (Spur) Not Reportable 08/19/16 09:43 Rouleaux Not Reportable 08/19/16 09:43 Hemoglobin C Crystals Not Reportable 08/19/16 09:43 Schistocytes Not Reportable 08/19/16 09:43 Malaria parasites Not Reportable 08/19/16 09:43 Isauro Bodies Not Reportable 08/19/16 09:43 Hem Pathologist Commnt No 08/19/16 09:43 PT 15.1 Sec. (12.2-14.9) H 08/21/16 09:11 INR 1.20 (0.87-1.13) H 08/21/16 09:11 Sodium 151 mmol/L (137-145) H 08/22/16 00:57 Potassium 3.9 mmol/L (3.6-5.0) D 08/22/16 00:57 Chloride 105.9 mmol/L (98-107) 08/22/16 00:57 Carbon Dioxide 31 mmol/L (22-30) H 08/22/16 00:57 Anion Gap 18 mmol/L 08/22/16 00:57 BUN 29 mg/dL (7-17) H 08/22/16 00:57 Creatinine 1.3 mg/dL (0.7-1.2) H 08/22/16 00:57 Estimated GFR 49 ml/min 08/22/16 00:57 BUN/Creatinine Ratio 22.30 % 08/22/16 00:57 Glucose 174 mg/dL (65-100) H 08/22/16 00:57 POC Glucose 143 (70-105) H 08/22/16 01:26 Lactic Acid 2.5 mmol/L (0.7-2.0) H* 08/15/16 18:00 Calcium 6.9 mg/dL (8.4-10.2) L 08/22/16 00:57 Magnesium 1.0 mg/dL (1.7-2.3) L 08/22/16 00:57 Total Bilirubin 0.4 mg/dL (0.1-1.2) 08/20/16 08:49 AST 20 units/L (5-40) 08/20/16 08:49 ALT 14 units/L (7-56) 08/20/16 08:49 Alkaline Phosphatase 103 units/L (35-129) 08/20/16 08:49 Total Creatine Kinase 52 units/L (30-135) 08/13/16 14:30 NT-Pro-B Natriuret Pep 495.2 pg/mL (0-900) 08/13/16 14:30 Total Protein 6.2 g/dL (6.3-8.2) L 08/20/16 08:49 Albumin 2.3 g/dL (3.9-5) L 08/20/16 08:49 Albumin/Globulin Ratio 0.6 % 08/20/16 08:49 Urine Color Yellow (Yellow) 08/13/16 16:42 Urine Turbidity Cloudy (Clear) 08/13/16 16:42 Urine pH 7.0 (5.0-7.0) 08/13/16 16:42 Ur Specific [place] 1.009 (1.003-1.030) 08/13/16 16:42 Urine Protein 100 mg/dl mg/dL (Negative) 08/13/16 16:42 Urine Glucose (UA) Neg mg/dL (Negative) 08/13/16 16:42 Urine Ketones Neg mg/dL (Negative) 08/13/16 16:42 Urine Blood Mod (Negative) 08/13/16 16:42 Urine Nitrite Neg (Negative) 08/13/16 16:42 Urine Bilirubin Neg (Negative) 08/13/16 16:42 Urine Urobilinogen < 2.0 mg/dL (<2.0) 08/13/16 16:42 Ur Leukocyte Esterase Lg (Negative) 08/13/16 16:42 Urine WBC (Auto) 133.0 /HPF (0.0-6.0) H 08/13/16 16:42 Urine RBC (Auto) 5.0 /HPF (0.0-6.0) 08/13/16 16:42 U Epithel Cells (Auto) 1.0 /HPF (0-13.0) 08/13/16 16:42 Urine Bacteria (Auto) 4+ /HPF (Negative) 08/13/16 16:42 Urine Mucus Few /HPF 08/13/16 16:42 Random Vancomycin 8.6 ug/mL (0-40.0) 08/17/16 06:47 Blood Type B POSITIVE 08/20/16 11:11 Antibody Screen Negative 08/20/16 11:11 Crossmatch See Detail 08/20/16 11:11
[2016-08-22 17:02] LABS: Calcium 6.3 mg/dL (8.4-10.2); Chloride 109.4 mmol/L (98-107); Potassium 3.4 mmol/L (3.6-5.0)
[2016-08-22 17:09] LABS: Eosinophils % (Auto) 0.4 % (0.0-4.3); Hematocrit 29.7 % (30.3-42.9); Hemoglobin 9.6 gm/dl (10.1-14.3); Mean Corpuscular HGB Conc 32 % (30-34); Mean Corpuscular Hemoglobin 27 pg (28-32); Mean Corpuscular Volume 83 fl (79-97); Red Blood Count 3.58 M/mm3 (3.65-5.03); Red Cell Distribution Width 19.8 % (13.2-15.2); White Blood Count 13.1 K/mm3 (4.5-11.0)
[2016-08-22 17:12] LABS: Platelet Count 67 K/mm3 (140-440)
[2016-08-22] MEDS: ROCEPHIN/NS 1 GM/50 ML 1 GM/50 ML BAG IV SCH (17:39)
[2016-08-23] MEDS: D5/0.45NS 1,000 ML IV SCH ×2 (06:03→19:30)
[2016-08-23] MEDS: MORPHINE IV PRN ×2 (06:06→15:32)
--- NOTE | 2016-08-23 10:09 | Progress Note ---
Assessment and Plan - Patient Problems (1) Acute renal failure Current Visit: Yes Status: Acute Qualifiers: Acute renal failure type: with other specified pathological lesion Qualified Code(s): N17.8 - Other acute kidney failure Plan to address problem: acute renal failure most likely due to pre-renal azotemia and obstructive nephrotpathy, renal function improving on IVF/ryan. continue ryan. recommend consult. Na improving, continue hypotonic IVF until Na corrected with free water flushes via PEG Supportive care for ABDI avoid nephrotoxins, NSAIDs, IV contrast. (2) Hydronephrosis Current Visit: Yes Status: Acute Qualifiers: Hydronephrosis type: H Plan to address problem: severely dilated bladder noted on CT, continue ryan, consider consult (3) Acute UTI (urinary tract infection) Current Visit: Yes Status: Acute Plan to address problem: continue ABX treatment with levaquin, dose renally adjusted. (4) Hypernatremia Current Visit: Yes Status: Acute Plan to address problem: na improving, continue D5 1/2NS until adequate free water flushes can be administered via PEG. (5) Metabolic acidosis Current Visit: Yes Status: Acute Plan to address problem: resolved (6) Hypokalemia Current Visit: Yes Status: Acute Plan to address problem: cont K supplementation via PEG (7) Dehydration Current Visit: Yes Status: Acute (8) Encephalopathy acute Current Visit: Yes Status: Acute (9) Protein-calorie malnutrition, severe Current Visit: Yes Status: Acute Subjective Date of service: 08/23/16 Interval history: pt remains non-verbal, non-responsive. Objective - Vital Signs Vital signs: Vital Signs - 12hr 08/23/16 08/23/16 08/23/16 01:31 05:27 06:06 Temperature 98.2 F 97.6 F Pulse Rate [ 82 84 Apical] Respiratory 20 18 20 Rate Blood Pressure 111/84 121/68 [Left Arm] O2 Sat by Pulse 94 98 Oximetry - General Appearance General appearance: cachectic, chronically ill, frail EENT: ATNC, PERRL, mucous membranes moist Neck: no JVD Respiratory: Present: Clear to Ascultation Cardiology: regular, S1S2 Gastrointestinal: normal, other (PEG in place ) Integumentary: no rash, other (no edema ) Neurologic: confused, disoriented - Lab 08/22/16 15:49 08/22/16 15:49 Most recent lab results Calcium 6.3 mg/dL (8.4-10.2) L 08/22/16 15:49 Magnesium 1.0 mg/dL (1.7-2.3) L 08/22/16 00:57
[2016-08-23 10:50] LABS: Chloride 112.2 mmol/L (98-107); Potassium 4.4 mmol/L (3.6-5.0)
[2016-08-23 10:51] LABS: BUN/Creatinine Ratio 18.33; Calcium 6.1 mg/dL (8.4-10.2)
[2016-08-23 10:52] LABS: Basophils % (Auto) 0.1 % (0.0-1.8); Eosinophils % (Auto) 0.5 % (0.0-4.3); Mean Corpuscular HGB Conc 29 % (30-34); Mean Corpuscular Hemoglobin 26 pg (28-32); Mean Corpuscular Volume 90 fl (79-97); Red Blood Count 4.27 M/mm3 (3.65-5.03)
[2016-08-23 10:55] LABS: Hemoglobin 11.1 gm/dl (10.1-14.3)
[2016-08-23 10:57] LABS: Hematocrit 38.3 % (30.3-42.9); Platelet Count 62 K/mm3 (140-440); Red Cell Distribution Width 21.8 % (13.2-15.2)
[2016-08-23] MEDS: D50W (25GM) IV PRN ×2 (12:34→17:27)
--- NOTE | 2016-08-23 14:38 | Progress Note ---
Assessment and Plan 1. s/p PEG placement - site looks good. Eze TF at 10 ml/hr. EGD did not show gastric outlet obstruction. - adv TF as tolerated 2. Abd pain - etiology unclear. No clear G-tube complication. With decreasing plt count, am concerned re: intraperit bleed (though H/H stable) vs other process. Will discuss with Hospitalist re: possible CT vs. close monitoring. Subjective Date of service: 08/23/16 Interval history: Pt getting tube feeding at 10 ml/hr. No N/V. Pt complains of abd pain, diffuse. Objective - Constitutional Vitals: Vital Signs - 12hr 08/23/16 08/23/16 08/23/16 05:27 06:06 08:30 Temperature 97.6 F 97.8 F Pulse Rate [ 84 62 Apical] Respiratory 18 20 20 Rate Blood Pressure 121/68 119/66 [Left Arm] O2 Sat by Pulse 98 94 Oximetry General appearance: Present: no acute distress - EENT Eyes: PERRL, EOM intact ENT: hearing intact - Gastrointestinal General gastrointestinal: Present: tender, normal bowel sounds (Mild diffuse tenderness, thin, somewhat firm abdomen) - Labs CBC & Chem 7: 08/23/16 10:18 08/23/16 10:18 Labs: Abnormal lab results 08/22/16 08/22/16 08/22/16 Range/Units 11:54 14:01 15:49 WBC 13.1 H (4.5-11.0) K/mm3 RBC 3.58 L (3.65-5.03) M/mm3 Hgb 9.6 L (10.1-14.3) gm/dl Hct 29.7 L D (30.3-42.9) % MCH 27 L (28-32) pg MCHC (30-34) % RDW 19.8 H (13.2-15.2) % Plt Count 67 L (140-440) K/mm3 Lymph % (Auto) 8.0 L (13.4-35.0) % Lymph # 1.0 L (1.2-5.4) K/mm3 [place] # (0.0-0.8) K/mm3 Seg Neutrophils % 88.6 H (40.0-70.0) % Seg Neutrophils # 11.6 H (1.8-7.7) K/mm3 Sodium (137-145) mmol/L Potassium (3.6-5.0) mmol/L Chloride (98-107) mmol/L Carbon Dioxide (22-30) mmol/L BUN (7-17) mg/dL Creatinine (0.7-1.2) mg/dL Glucose (65-100) mg/dL POC Glucose 44 L < 40 L (70-105) Calcium (8.4-10.2) mg/dL 08/22/16 08/22/16 08/23/16 Range/Units 15:49 16:22 00:36 WBC (4.5-11.0) K/mm3 RBC (3.65-5.03) M/mm3 Hgb (10.1-14.3) gm/dl Hct (30.3-42.9) % MCH (28-32) pg MCHC (30-34) % RDW (13.2-15.2) % Plt Count (140-440) K/mm3 Lymph % (Auto) (13.4-35.0) % Lymph # (1.2-5.4) K/mm3 [place] # (0.0-0.8) K/mm3 Seg Neutrophils % (40.0-70.0) % Seg Neutrophils # (1.8-7.7) K/mm3 Sodium 147 H (137-145) mmol/L Potassium 3.4 L (3.6-5.0) mmol/L Chloride 109.4 H (98-107) mmol/L Carbon Dioxide (22-30) mmol/L BUN 27 H (7-17) mg/dL Creatinine 1.5 H (0.7-1.2) mg/dL Glucose 204 H (65-100) mg/dL POC Glucose 148 H 152 H (70-105) Calcium 6.3 L (8.4-10.2) mg/dL 08/23/16 08/23/16 08/23/16 Range/Units 10:18 10:18 12:10 WBC 14.0 H (4.5-11.0) K/mm3 RBC (3.65-5.03) M/mm3 Hgb (10.1-14.3) gm/dl Hct (30.3-42.9) % MCH 26 L (28-32) pg MCHC 29 L (30-34) % RDW 21.8 H (13.2-15.2) % Plt Count 62 L (140-440) K/mm3 Lymph % (Auto) 7.9 L (13.4-35.0) % Lymph # 1.1 L (1.2-5.4) K/mm3 [place] # 1.0 H (0.0-0.8) K/mm3 Seg Neutrophils % 84.3 H (40.0-70.0) % Seg Neutrophils # 11.8 H (1.8-7.7) K/mm3 Sodium (137-145) mmol/L Potassium (3.6-5.0) mmol/L Chloride 112.2 H (98-107) mmol/L Carbon Dioxide 15 L D (22-30) mmol/L BUN 22 H (7-17) mg/dL Creatinine (0.7-1.2) mg/dL Glucose (65-100) mg/dL POC Glucose < 40 L (70-105) Calcium 6.1 L (8.4-10.2) mg/dL 08/23/16 Range/Units 13:12 WBC (4.5-11.0) K/mm3 RBC (3.65-5.03) M/mm3 Hgb (10.1-14.3) gm/dl Hct (30.3-42.9) % MCH (28-32) pg MCHC (30-34) % RDW (13.2-15.2) % Plt Count (140-440) K/mm3 Lymph % (Auto) (13.4-35.0) % Lymph # (1.2-5.4) K/mm3 [place] # (0.0-0.8) K/mm3 Seg Neutrophils % (40.0-70.0) % Seg Neutrophils # (1.8-7.7) K/mm3 Sodium (137-145) mmol/L Potassium (3.6-5.0) mmol/L Chloride (98-107) mmol/L Carbon Dioxide (22-30) mmol/L BUN (7-17) mg/dL Creatinine (0.7-1.2) mg/dL Glucose (65-100) mg/dL POC Glucose 185 H (70-105) Calcium (8.4-10.2) mg/dL
--- NOTE | 2016-08-23 15:07 | Progress Note ---
Assessment and Plan Assessment and plan: Severe Sepsis secondary to beta hemolytic streptococci -Managed according to sepsis protocol, IV ceftriaxone, IV fluids Acute kidney failure - Nephrology is consulted - IV fluid adjusted - Improving Hypernatremia - On D5 W - improved - Will start tube feeding Acute metabolic encephalopathy - Supportive care - improved Severe anemia - transfused 2 units of blood - hemoglobin 11, there should be some lab error Severe Hypokalemia - repleted - Will check potassium Patient is NPO - PEG placed by GI and it is functional Abdominal pain, thrombocytopenia -CT abdomen is ordered to evaluate if there is any bleeding Hypoglycemia - D/C SSI - Continue with dextrose Prophylaxis - Heparin CODE STATUS - FULL, discussed with her next of kin and wanted everything to be done for her. History Interval history: Patient was seen and evaluated this morning. Patient was alert and admitted for vomiting. She has abdominal pain and platelet is dropping. Hospitalist Physical - Physical exam Narrative exam: Not in cardiopulmonary distress. Patient is alert Cachectic patient lying on the bed Vital signs as documented. Head exam is unremarkable. No scleral icterus . Neck is without jugular venous distension, thyromegaly, or carotid bruits. Lungs are clear to auscultation. Cardiac exam reveals regular rate and Rhythm. First and second heart sounds normal. No murmurs, rubs or gallops. Abdominal examPEG placed this morning. Extremities no edema. 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 - Constitutional Vitals: Temp Pulse Resp BP Pulse Ox 97.8 F 68 20 119/66 94 08/23/16 08:30 08/23/16 10:00 08/23/16 08:30 08/23/16 08:30 08/23/16 08:30 General appearance: Present: no acute distress Results - Labs CBC & Chem 7: 08/23/16 10:18 08/23/16 10:18 Labs: Laboratory Last Values WBC 14.0 K/mm3 (4.5-11.0) H 08/23/16 10:18 RBC 4.27 M/mm3 (3.65-5.03) 08/23/16 10:18 Hgb 11.1 gm/dl (10.1-14.3) 08/23/16 10:18 Hct 38.3 % (30.3-42.9) D 08/23/16 10:18 MCV 90 fl (79-97) D 08/23/16 10:18 MCH 26 pg (28-32) L 08/23/16 10:18 MCHC 29 % (30-34) L 08/23/16 10:18 RDW 21.8 % (13.2-15.2) H 08/23/16 10:18 Plt Count 62 K/mm3 (140-440) L 08/23/16 10:18 Lymph % (Auto) 7.9 % (13.4-35.0) L 08/23/16 10:18 [place] % (Auto) 7.2 % (0.0-7.3) 08/23/16 10:18 Eos % (Auto) 0.5 % (0.0-4.3) 08/23/16 10:18 Baso % (Auto) 0.1 % (0.0-1.8) 08/23/16 10:18 Lymph # 1.1 K/mm3 (1.2-5.4) L 08/23/16 10:18 [place] # 1.0 K/mm3 (0.0-0.8) H 08/23/16 10:18 Eos # 0.1 K/mm3 (0.0-0.4) 08/23/16 10:18 Baso # 0.0 K/mm3 (0.0-0.1) 08/23/16 10:18 Add Manual Diff Complete 08/19/16 09:43 Total Counted 100 08/19/16 09:43 Seg Neutrophils % 84.3 % (40.0-70.0) H 08/23/16 10:18 Seg Neuts % (Manual) 86.0 % (40.0-70.0) H 08/19/16 09:43 Band Neutrophils % 0 % 08/19/16 09:43 Lymphocytes % (Manual) 14.0 % (13.4-35.0) 08/19/16 09:43 Reactive Lymphs % (Man) 0 % 08/19/16 09:43 Monocytes % (Manual) 0 % (0.0-7.3) 08/19/16 09:43 Eosinophils % (Manual) 0 % (0.0-4.3) 08/19/16 09:43 Basophils % (Manual) 0 % (0.0-1.8) 08/19/16 09:43 Metamyelocytes % 0 % 08/19/16 09:43 Myelocytes % 0 % 08/19/16 09:43 Promyelocytes % 0 % 08/19/16 09:43 Blast Cells % 0 % 08/19/16 09:43 Nucleated RBC % Not Reportable 08/19/16 09:43 Seg Neutrophils # 11.8 K/mm3 (1.8-7.7) H 08/23/16 10:18 Seg Neutrophils # Man 13.3 K/mm3 (1.8-7.7) H 08/19/16 09:43 Band Neutrophils # 0.0 K/mm3 08/19/16 09:43 Lymphocytes # (Manual) 2.2 K/mm3 (1.2-5.4) 08/19/16 09:43 Abs React Lymphs (Man) 0.0 K/mm3 08/19/16 09:43 Monocytes # (Manual) 0.0 K/mm3 (0.0-0.8) 08/19/16 09:43 Eosinophils # (Manual) 0.0 K/mm3 (0.0-0.4) 08/19/16 09:43 Basophils # (Manual) 0.0 K/mm3 (0.0-0.1) 08/19/16 09:43 Metamyelocytes # 0.0 K/mm3 08/19/16 09:43 Myelocytes # 0.0 K/mm3 08/19/16 09:43 Promyelocytes # 0.0 K/mm3 08/19/16 09:43 Blast Cells # 0.0 K/mm3 08/19/16 09:43 Pathologist Review 08/15/16 10:57 WBC Morphology Not Reportable 08/19/16 09:43 Hypersegmented Neuts Not Reportable 08/19/16 09:43 Hyposegmented Neuts Not Reportable 08/19/16 09:43 Hypogranular Neuts Not Reportable 08/19/16 09:43 Smudge Cells Not Reportable 08/19/16 09:43 Toxic Granulation Not Reportable 08/19/16 09:43 Toxic Vacuolation Not Reportable 08/19/16 09:43 Dohle Bodies Not Reportable 08/19/16 09:43 Pelger-Huet Anomaly Not Reportable 08/19/16 09:43 Celestine Rods Not Reportable 08/19/16 09:43 Platelet Estimate Cons 08/19/16 09:43 Clumped Platelets Not Reportable 08/19/16 09:43 Plt Clumps, EDTA Not Reportable 08/19/16 09:43 Large Platelets Few 08/19/16 09:43 Giant Platelets Not Reportable 08/19/16 09:43 Platelet Satelliting Not Reportable 08/19/16 09:43 Plt Morphology Comment Not Reportable 08/19/16 09:43 RBC Morphology Not Reportable 08/19/16 09:43 Dimorphic RBCs Not Reportable 08/19/16 09:43 Polychromasia Not Reportable 08/19/16 09:43 Hypochromasia 2+ 08/19/16 09:43 Poikilocytosis Not Reportable 08/19/16 09:43 Anisocytosis 1+ 08/19/16 09:43 Microcytosis Not Reportable 08/19/16 09:43 Macrocytosis Not Reportable 08/19/16 09:43 Spherocytes Not Reportable 08/19/16 09:43 Pappenheimer Bodies Not Reportable 08/19/16 09:43 Sickle Cells Not Reportable 08/19/16 09:43 Target Cells 1+ 08/19/16 09:43 Tear Drop Cells Not Reportable 08/19/16 09:43 Ovalocytes Not Reportable 08/19/16 09:43 Stomatocytes Few 08/17/16 07:25 Helmet Cells Not Reportable 08/19/16 09:43 Villalobos-Agar Bodies Not Reportable 08/19/16 09:43 [place] Rings Not Reportable 08/19/16 09:43 Mobile Cells Not Reportable 08/19/16 09:43 Bite Cells Not Reportable 08/19/16 09:43 Crenated Cell Not Reportable 08/19/16 09:43 Elliptocytes Not Reportable 08/19/16 09:43 Acanthocytes (Spur) Not Reportable 08/19/16 09:43 Rouleaux Not Reportable 08/19/16 09:43 Hemoglobin C Crystals Not Reportable 08/19/16 09:43 Schistocytes Not Reportable 08/19/16 09:43 Malaria parasites Not Reportable 08/19/16 09:43 Isauro Bodies Not Reportable 08/19/16 09:43 Hem Pathologist Commnt No 08/19/16 09:43 PT 15.1 Sec. (12.2-14.9) H 08/21/16 09:11 INR 1.20 (0.87-1.13) H 08/21/16 09:11 Sodium 145 mmol/L (137-145) 08/23/16 10:18 Potassium 4.4 mmol/L (3.6-5.0) D 08/23/16 10:18 Chloride 112.2 mmol/L (98-107) H 08/23/16 10:18 Carbon Dioxide 15 mmol/L (22-30) L D 08/23/16 10:18 Anion Gap 22 mmol/L 08/23/16 10:18 BUN 22 mg/dL (7-17) H 08/23/16 10:18 Creatinine 1.2 mg/dL (0.7-1.2) 08/23/16 10:18 Estimated GFR 53 ml/min 08/23/16 10:18 BUN/Creatinine Ratio 18.33 % 08/23/16 10:18 Glucose 96 mg/dL (65-100) 08/23/16 10:18 POC Glucose 185 (70-105) H 08/23/16 13:12 Lactic Acid 2.5 mmol/L (0.7-2.0) H* 08/15/16 18:00 Calcium 6.1 mg/dL (8.4-10.2) L 08/23/16 10:18 Magnesium 1.0 mg/dL (1.7-2.3) L 08/22/16 00:57 Total Bilirubin 0.4 mg/dL (0.1-1.2) 08/20/16 08:49 AST 20 units/L (5-40) 08/20/16 08:49 ALT 14 units/L (7-56) 08/20/16 08:49 Alkaline Phosphatase 103 units/L (35-129) 08/20/16 08:49 Total Creatine Kinase 52 units/L (30-135) 08/13/16 14:30 NT-Pro-B Natriuret Pep 495.2 pg/mL (0-900) 08/13/16 14:30 Total Protein 6.2 g/dL (6.3-8.2) L 08/20/16 08:49 Albumin 2.3 g/dL (3.9-5) L 08/20/16 08:49 Albumin/Globulin Ratio 0.6 % 08/20/16 08:49 Urine Color Yellow (Yellow) 08/13/16 16:42 Urine Turbidity Cloudy (Clear) 08/13/16 16:42 Urine pH 7.0 (5.0-7.0) 08/13/16 16:42 Ur Specific [place] 1.009 (1.003-1.030) 08/13/16 16:42 Urine Protein 100 mg/dl mg/dL (Negative) 08/13/16 16:42 Urine Glucose (UA) Neg mg/dL (Negative) 08/13/16 16:42 Urine Ketones Neg mg/dL (Negative) 08/13/16 16:42 Urine Blood Mod (Negative) 08/13/16 16:42 Urine Nitrite Neg (Negative) 08/13/16 16:42 Urine Bilirubin Neg (Negative) 08/13/16 16:42 Urine Urobilinogen < 2.0 mg/dL (<2.0) 08/13/16 16:42 Ur Leukocyte Esterase Lg (Negative) 08/13/16 16:42 Urine WBC (Auto) 133.0 /HPF (0.0-6.0) H 08/13/16 16:42 Urine RBC (Auto) 5.0 /HPF (0.0-6.0) 08/13/16 16:42 U Epithel Cells (Auto) 1.0 /HPF (0-13.0) 08/13/16 16:42 Urine Bacteria (Auto) 4+ /HPF (Negative) 08/13/16 16:42 Urine Mucus Few /HPF 08/13/16 16:42 Random Vancomycin 8.6 ug/mL (0-40.0) 08/17/16 06:47 Blood Type B POSITIVE 08/20/16 11:11 Antibody Screen Negative 08/20/16 11:11 Crossmatch See Detail 08/20/16 11:11
[2016-08-23] MEDS: ROCEPHIN/NS 1 GM/50 ML 1 GM/50 ML BAG IV SCH (16:54)
--- NOTE | 2016-08-23 17:04 | Cat Scan Report ---
FINAL REPORT EXAM: CT ABDOMEN PELVIS WO CON HISTORY: Abdominal pain, thrombocytopenia TECHNIQUE: CT of the abdomen and pelvis without contrast PRIORS: Comparison is made to the exam August 13, 2016 FINDINGS: There is been interval placement of a PEG tube. Amount of free air in upper likely secondary to PEG tube placement. Tip is within body stomach. No focal abnormality seen within the liver parenchyma nonenhanced images Gallbladder is distended Spleen is normal in size There is continued prominence of the renal collecting systems bilaterally. Abdominal aorta is normal in caliber. Aortic and iliac vascular calcifications are noted Minimal diffuse small-bowel prominence likely reflects ileus There is Hanna now present within the urinary bladder which is decompressed. Gas es distention of the rectum noted. There is some perirectal strandy increased density which could reflect proctitis. The colon is nondistended. IMPRESSION: Placement of Hanna catheter since the prior exam nondistended urinary bladder now identified Interval placement of PEG tube. Small amount of free air in the upper abdomen likely secondary to a PEG tube placement. Distal end of the tube is within the lumen of the stomach. Continued mild prominence of the renal collecting systems bilaterally Some heterogeneity palpable which could reflect cysts within the left kidney incompletely characterized Within the limits of the study no additional acute findings identified
[2016-08-24] MEDS: D50W (25GM) IV PRN (01:00)
[2016-08-24 07:39] LABS: Basophils % (Auto) 0.2 % (0.0-1.8); Eosinophils % (Auto) 0.7 % (0.0-4.3); Hematocrit 30.4 % (30.3-42.9); Hemoglobin 9.7 gm/dl (10.1-14.3); Mean Corpuscular HGB Conc 32 % (30-34); Mean Corpuscular Hemoglobin 27 pg (28-32); Mean Corpuscular Volume 84 fl (79-97); Red Blood Count 3.62 M/mm3 (3.65-5.03); White Blood Count 13.3 K/mm3 (4.5-11.0)
[2016-08-24 07:40] LABS: Platelet Count 93 K/mm3 (140-440); Red Cell Distribution Width 20.3 % (13.2-15.2)
[2016-08-24 07:57] LABS: BUN/Creatinine Ratio 17.27; Calcium 6.3 mg/dL (8.4-10.2); Potassium 3.4 mmol/L (3.6-5.0)
--- NOTE | 2016-08-24 08:20 | Progress Note ---
Assessment and Plan - Patient Problems (1) Acute renal failure Current Visit: Yes Status: Acute Qualifiers: Acute renal failure type: with other specified pathological lesion Qualified Code(s): N17.8 - Other acute kidney failure Plan to address problem: Kidney function improving. Continue management (2) Urinary tract infection Current Visit: Yes Status: Acute Qualifiers: Urinary tract infection type: U Hematuria presence: H Indwelling urinary catheter type: I Encounter type: E Plan to address problem: Continue antibiotics. (3) Hydronephrosis Current Visit: Yes Status: Acute Qualifiers: Hydronephrosis type: H Plan to address problem: Improving status post Hanna catheter. Mild prominence of the renal collecting systems still seen on repeat CT scan. (4) Hypernatremia Current Visit: Yes Status: Acute Plan to address problem: Sodium is worse. Increase free water. Change IV fluids to D5W (5) Hypokalemia Current Visit: Yes Status: Acute Plan to address problem: Supplement potassium and follow-up levels (6) Metabolic acidosis Current Visit: Yes Status: Acute Plan to address problem: Improving (7) Protein-calorie malnutrition, severe Current Visit: Yes Status: Acute Plan to address problem: Nutritional support Subjective Date of service: 08/24/16 Principal diagnosis: ABDI, Hypernatremia Interval history: Patient seen lying in bed. Confused conversation. She keeps saying "I'm falling" Objective - Exam Narrative Exam: Frail elderly -[place] female lying in bed in no acute distress HEENT normocephalic atraumatic, Neck supple, no thyromegaly no jugular venous distention CVS S1-S2 regular rate rhythm without murmur, rub or gallop Chest clear to auscultation Abdomen soft nondistended nontender no organomegaly no bruit bowel sounds present Extremities no edema Neuro awake, alert oriented x3 no gross deficit - Vital Signs Vital signs: Vital Signs - 12hr 08/23/16 08/24/16 08/24/16 22:00 00:00 05:35 Temperature 98.8 F 98.6 F Pulse Rate 65 Pulse Rate [ 67 76 Left] Pulse Rate [ Right Radial] Respiratory 18 17 18 Rate Blood Pressure 128/59 147/63 [Left Arm] Blood Pressure [Right Arm] O2 Sat by Pulse 97 99 Oximetry 08/24/16 07:51 Temperature 97.3 F L Pulse Rate Pulse Rate [ Left] Pulse Rate [ 80 Right Radial] Respiratory 18 Rate Blood Pressure [Left Arm] Blood Pressure 136/70 [Right Arm] O2 Sat by Pulse 99 Oximetry - Lab 08/24/16 07:22 08/24/16 07:22 Most recent lab results Calcium 6.3 mg/dL (8.4-10.2) L 08/24/16 07:22 Magnesium 1.0 mg/dL (1.7-2.3) L 08/22/16 00:57
[2016-08-24] MEDS ORDERED: POTASSIUM CHLORIDE FEEDTUBE ONE ×3 (08:22→14:37)
--- NOTE | 2016-08-24 10:30 | Gastroenterology Progress Note ---
Assessment and Plan 1) Anemia 2) S/P PEG placement -CT neg for bleed -Would opt to monitor Hb -Physical exam does not reveal any extremity or trunk hematoma -Cont tube feeds Subjective Date of service: 08/24/16 Principal diagnosis: ABDI, Hypernatremia Interval history: Pt seen/examined this AM. CT neg for intra-peritoneal/RP bleed. Hb down to 9.7 today, w/o overt signs of bleeding. Pt c/o pain everywhere. Objective - Constitutional Vitals: Temp Pulse Resp BP Pulse Ox 97.3 F L 80 18 136/70 99 08/24/16 07:51 08/24/16 07:51 08/24/16 07:51 08/24/16 07:51 08/24/16 07:51 General appearance: cachectic - Neck Neck: supple - Respiratory Respiratory: bilateral: CTA - Cardiovascular Rhythm: regular Heart Sounds: Present: S1 & S2 - Extremities Extremities: No edema - Gastrointestinal General gastrointestinal: Present: soft, tender (throughout, PEG site C/D/I with PEG feeds infusing w/o problems) - Integumentary Integumentary: Present: clear - Labs CBC & Chem 7: 08/24/16 07:22 08/24/16 07:22 Labs: Laboratory Results - last 24 hr 08/23/16 08/23/16 08/23/16 10:18 10:18 12:10 WBC 14.0 H RBC 4.27 Hgb 11.1 Hct 38.3 D MCV 90 D MCH 26 L MCHC 29 L RDW 21.8 H Plt Count 62 L Lymph % (Auto) 7.9 L [place] % (Auto) 7.2 Eos % (Auto) 0.5 Baso % (Auto) 0.1 Lymph # 1.1 L [place] # 1.0 H Eos # 0.1 Baso # 0.0 Seg Neutrophils % 84.3 H Seg Neutrophils # 11.8 H Sodium 145 Potassium 4.4 D Chloride 112.2 H Carbon Dioxide 15 L D Anion Gap 22 BUN 22 H Creatinine 1.2 Estimated GFR 53 BUN/Creatinine Ratio 18.33 Glucose 96 POC Glucose < 40 L Calcium 6.1 L 08/23/16 08/23/16 08/23/16 13:12 16:58 18:34 WBC RBC Hgb Hct MCV MCH MCHC RDW Plt Count Lymph % (Auto) [place] % (Auto) Eos % (Auto) Baso % (Auto) Lymph # [place] # Eos # Baso # Seg Neutrophils % Seg Neutrophils # Sodium Potassium Chloride Carbon Dioxide Anion Gap BUN Creatinine Estimated GFR BUN/Creatinine Ratio Glucose POC Glucose 185 H 51 L 68 L Calcium 08/24/16 08/24/16 08/24/16 00:31 03:15 06:38 WBC RBC Hgb Hct MCV MCH MCHC RDW Plt Count Lymph % (Auto) [place] % (Auto) Eos % (Auto) Baso % (Auto) Lymph # [place] # Eos # Baso # Seg Neutrophils % Seg Neutrophils # Sodium Potassium Chloride Carbon Dioxide Anion Gap BUN Creatinine Estimated GFR BUN/Creatinine Ratio Glucose POC Glucose 41 L 100 58 L Calcium 08/24/16 08/24/16 07:22 07:22 WBC 13.3 H RBC 3.62 L Hgb 9.7 L Hct 30.4 D MCV 84 D MCH 27 L MCHC 32 RDW 20.3 H Plt Count 93 L Lymph % (Auto) 6.9 L [place] % (Auto) 5.4 Eos % (Auto) 0.7 Baso % (Auto) 0.2 Lymph # 0.9 L [place] # 0.7 Eos # 0.1 Baso # 0.0 Seg Neutrophils % 86.8 H Seg Neutrophils # 11.6 H Sodium 149 H Potassium 3.4 L D Chloride 112.0 H Carbon Dioxide 24 D Anion Gap 16 BUN 19 H Creatinine 1.1 Estimated GFR 59 BUN/Creatinine Ratio 17.27 Glucose 149 H POC Glucose Calcium 6.3 L
[2016-08-24] MEDS: MORPHINE IV PRN ×2 (11:25→18:13)
--- NOTE | 2016-08-24 14:45 | Progress Note ---
Assessment and Plan Assessment and plan: Severe Sepsis secondary to beta hemolytic streptococci -Managed according to sepsis protocol, IV ceftriaxone, IV fluids Acute kidney failure - Nephrology is consulted - IV fluid adjusted - Improving Hypernatremia - On D5 W - improved - patient is on tube feeding now, no nausea or vomiting, she tolerated her diet Acute metabolic encephalopathy - Supportive care - improved Severe anemia - transfused 2 units of blood - Hemoglobin is stable Severe Hypokalemia - repleted - Will check potassium Abdominal pain, thrombocytopenia -CT abdomen showed no abdominal bleeding - Will monitor Hypoglycemia - the cause is unknown - D/C SSI - Continue with dextrose Prophylaxis - Heparin CODE STATUS - FULL, discussed with her next of kin and wanted everything to be done for her. History Interval history: Patient was seen and evaluated this morning. Patient was alert and denied vomiting but patient was agitated. Hospitalist Physical - Physical exam Narrative exam: Not in cardiopulmonary distress. Patient is alert Cachectic patient lying on the bed Vital signs as documented. Head exam is unremarkable. No scleral icterus . Neck is without jugular venous distension, thyromegaly, or carotid bruits. Lungs are clear to auscultation. Cardiac exam reveals regular rate and Rhythm. First and second heart sounds normal. No murmurs, rubs or gallops. Abdominal examPEG in place. Extremities no edema. 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 - Constitutional Vitals: Temp Pulse Resp BP Pulse Ox 98.6 F 70 20 125/62 100 08/24/16 12:00 08/24/16 12:00 08/24/16 12:00 08/24/16 12:00 08/24/16 12:00 General appearance: Present: no acute distress Results - Labs CBC & Chem 7: 08/24/16 07:22 08/24/16 07:22 Labs: Laboratory Last Values WBC 13.3 K/mm3 (4.5-11.0) H 08/24/16 07:22 RBC 3.62 M/mm3 (3.65-5.03) L 08/24/16 07:22 Hgb 9.7 gm/dl (10.1-14.3) L 08/24/16 07:22 Hct 30.4 % (30.3-42.9) D 08/24/16 07:22 MCV 84 fl (79-97) D 08/24/16 07:22 MCH 27 pg (28-32) L 08/24/16 07:22 MCHC 32 % (30-34) 08/24/16 07:22 RDW 20.3 % (13.2-15.2) H 08/24/16 07:22 Plt Count 93 K/mm3 (140-440) L 08/24/16 07:22 Lymph % (Auto) 6.9 % (13.4-35.0) L 08/24/16 07:22 [place] % (Auto) 5.4 % (0.0-7.3) 08/24/16 07:22 Eos % (Auto) 0.7 % (0.0-4.3) 08/24/16 07:22 Baso % (Auto) 0.2 % (0.0-1.8) 08/24/16 07:22 Lymph # 0.9 K/mm3 (1.2-5.4) L 08/24/16 07:22 [place] # 0.7 K/mm3 (0.0-0.8) 08/24/16 07:22 Eos # 0.1 K/mm3 (0.0-0.4) 08/24/16 07:22 Baso # 0.0 K/mm3 (0.0-0.1) 08/24/16 07:22 Add Manual Diff Complete 08/19/16 09:43 Total Counted 100 08/19/16 09:43 Seg Neutrophils % 86.8 % (40.0-70.0) H 08/24/16 07:22 Seg Neuts % (Manual) 86.0 % (40.0-70.0) H 08/19/16 09:43 Band Neutrophils % 0 % 08/19/16 09:43 Lymphocytes % (Manual) 14.0 % (13.4-35.0) 08/19/16 09:43 Reactive Lymphs % (Man) 0 % 08/19/16 09:43 Monocytes % (Manual) 0 % (0.0-7.3) 08/19/16 09:43 Eosinophils % (Manual) 0 % (0.0-4.3) 08/19/16 09:43 Basophils % (Manual) 0 % (0.0-1.8) 08/19/16 09:43 Metamyelocytes % 0 % 08/19/16 09:43 Myelocytes % 0 % 08/19/16 09:43 Promyelocytes % 0 % 08/19/16 09:43 Blast Cells % 0 % 08/19/16 09:43 Nucleated RBC % Not Reportable 08/19/16 09:43 Seg Neutrophils # 11.6 K/mm3 (1.8-7.7) H 08/24/16 07:22 Seg Neutrophils # Man 13.3 K/mm3 (1.8-7.7) H 08/19/16 09:43 Band Neutrophils # 0.0 K/mm3 08/19/16 09:43 Lymphocytes # (Manual) 2.2 K/mm3 (1.2-5.4) 08/19/16 09:43 Abs React Lymphs (Man) 0.0 K/mm3 08/19/16 09:43 Monocytes # (Manual) 0.0 K/mm3 (0.0-0.8) 08/19/16 09:43 Eosinophils # (Manual) 0.0 K/mm3 (0.0-0.4) 08/19/16 09:43 Basophils # (Manual) 0.0 K/mm3 (0.0-0.1) 08/19/16 09:43 Metamyelocytes # 0.0 K/mm3 08/19/16 09:43 Myelocytes # 0.0 K/mm3 08/19/16 09:43 Promyelocytes # 0.0 K/mm3 08/19/16 09:43 Blast Cells # 0.0 K/mm3 08/19/16 09:43 Pathologist Review 08/15/16 10:57 WBC Morphology Not Reportable 08/19/16 09:43 Hypersegmented Neuts Not Reportable 08/19/16 09:43 Hyposegmented Neuts Not Reportable 08/19/16 09:43 Hypogranular Neuts Not Reportable 08/19/16 09:43 Smudge Cells Not Reportable 08/19/16 09:43 Toxic Granulation Not Reportable 08/19/16 09:43 Toxic Vacuolation Not Reportable 08/19/16 09:43 Dohle Bodies Not Reportable 08/19/16 09:43 Pelger-Huet Anomaly Not Reportable 08/19/16 09:43 Celestine Rods Not Reportable 08/19/16 09:43 Platelet Estimate Cons 08/19/16 09:43 Clumped Platelets Not Reportable 08/19/16 09:43 Plt Clumps, EDTA Not Reportable 08/19/16 09:43 Large Platelets Few 08/19/16 09:43 Giant Platelets Not Reportable 08/19/16 09:43 Platelet Satelliting Not Reportable 08/19/16 09:43 Plt Morphology Comment Not Reportable 08/19/16 09:43 RBC Morphology Not Reportable 08/19/16 09:43 Dimorphic RBCs Not Reportable 08/19/16 09:43 Polychromasia Not Reportable 08/19/16 09:43 Hypochromasia 2+ 08/19/16 09:43 Poikilocytosis Not Reportable 08/19/16 09:43 Anisocytosis 1+ 08/19/16 09:43 Microcytosis Not Reportable 08/19/16 09:43 Macrocytosis Not Reportable 08/19/16 09:43 Spherocytes Not Reportable 08/19/16 09:43 Pappenheimer Bodies Not Reportable 08/19/16 09:43 Sickle Cells Not Reportable 08/19/16 09:43 Target Cells 1+ 08/19/16 09:43 Tear Drop Cells Not Reportable 08/19/16 09:43 Ovalocytes Not Reportable 08/19/16 09:43 Stomatocytes Few 08/17/16 07:25 Helmet Cells Not Reportable 08/19/16 09:43 Villalobos-Myrtle Bodies Not Reportable 08/19/16 09:43 [place] Rings Not Reportable 08/19/16 09:43 Shanel Cells Not Reportable 08/19/16 09:43 Bite Cells Not Reportable 08/19/16 09:43 Crenated Cell Not Reportable 08/19/16 09:43 Elliptocytes Not Reportable 08/19/16 09:43 Acanthocytes (Spur) Not Reportable 08/19/16 09:43 Rouleaux Not Reportable 08/19/16 09:43 Hemoglobin C Crystals Not Reportable 08/19/16 09:43 Schistocytes Not Reportable 08/19/16 09:43 Malaria parasites Not Reportable 08/19/16 09:43 Isauro Bodies Not Reportable 08/19/16 09:43 Hem Pathologist Commnt No 08/19/16 09:43 PT 15.1 Sec. (12.2-14.9) H 08/21/16 09:11 INR 1.20 (0.87-1.13) H 08/21/16 09:11 Sodium 149 mmol/L (137-145) H 08/24/16 07:22 Potassium 3.4 mmol/L (3.6-5.0) L D 08/24/16 07:22 Chloride 112.0 mmol/L (98-107) H 08/24/16 07:22 Carbon Dioxide 24 mmol/L (22-30) D 08/24/16 07:22 Anion Gap 16 mmol/L 08/24/16 07:22 BUN 19 mg/dL (7-17) H 08/24/16 07:22 Creatinine 1.1 mg/dL (0.7-1.2) 08/24/16 07:22 Estimated GFR 59 ml/min 08/24/16 07:22 BUN/Creatinine Ratio 17.27 % 08/24/16 07:22 Glucose 149 mg/dL (65-100) H 08/24/16 07:22 POC Glucose 58 (70-105) L 08/24/16 06:38 Lactic Acid 2.5 mmol/L (0.7-2.0) H* 08/15/16 18:00 Calcium 6.3 mg/dL (8.4-10.2) L 08/24/16 07:22 Magnesium 1.0 mg/dL (1.7-2.3) L 08/22/16 00:57 Total Bilirubin 0.4 mg/dL (0.1-1.2) 08/20/16 08:49 AST 20 units/L (5-40) 08/20/16 08:49 ALT 14 units/L (7-56) 08/20/16 08:49 Alkaline Phosphatase 103 units/L (35-129) 08/20/16 08:49 Total Creatine Kinase 52 units/L (30-135) 08/13/16 14:30 NT-Pro-B Natriuret Pep 495.2 pg/mL (0-900) 08/13/16 14:30 Total Protein 6.2 g/dL (6.3-8.2) L 08/20/16 08:49 Albumin 2.3 g/dL (3.9-5) L 08/20/16 08:49 Albumin/Globulin Ratio 0.6 % 08/20/16 08:49 Urine Color Yellow (Yellow) 08/13/16 16:42 Urine Turbidity Cloudy (Clear) 08/13/16 16:42 Urine pH 7.0 (5.0-7.0) 08/13/16 16:42 Ur Specific [place] 1.009 (1.003-1.030) 08/13/16 16:42 Urine Protein 100 mg/dl mg/dL (Negative) 08/13/16 16:42 Urine Glucose (UA) Neg mg/dL (Negative) 08/13/16 16:42 Urine Ketones Neg mg/dL (Negative) 08/13/16 16:42 Urine Blood Mod (Negative) 08/13/16 16:42 Urine Nitrite Neg (Negative) 08/13/16 16:42 Urine Bilirubin Neg (Negative) 08/13/16 16:42 Urine Urobilinogen < 2.0 mg/dL (<2.0) 08/13/16 16:42 Ur Leukocyte Esterase Lg (Negative) 08/13/16 16:42 Urine WBC (Auto) 133.0 /HPF (0.0-6.0) H 08/13/16 16:42 Urine RBC (Auto) 5.0 /HPF (0.0-6.0) 08/13/16 16:42 U Epithel Cells (Auto) 1.0 /HPF (0-13.0) 08/13/16 16:42 Urine Bacteria (Auto) 4+ /HPF (Negative) 08/13/16 16:42 Urine Mucus Few /HPF 08/13/16 16:42 Random Vancomycin 8.6 ug/mL (0-40.0) 08/17/16 06:47 Blood Type B POSITIVE 08/20/16 11:11 Antibody Screen Negative 08/20/16 11:11 Crossmatch See Detail 08/20/16 11:11
[2016-08-24] MEDS: ROCEPHIN/NS 1 GM/50 ML 1 GM/50 ML BAG IV SCH (18:08)
[2016-08-25] MEDS: D5W 1,000 ML IV SCH ×2 (03:18→20:30)
[2016-08-25 07:53] LABS: Basophils % (Auto) 0.3 % (0.0-1.8); Eosinophils % (Auto) 0.6 % (0.0-4.3); Hematocrit 25.9 % (30.3-42.9); Hemoglobin 8.5 gm/dl (10.1-14.3); Mean Corpuscular HGB Conc 33 % (30-34); Mean Corpuscular Hemoglobin 27 pg (28-32); Mean Corpuscular Volume 82 fl (79-97); Red Blood Count 3.17 M/mm3 (3.65-5.03); White Blood Count 12.6 K/mm3 (4.5-11.0)
[2016-08-25 07:57] LABS: Platelet Count 97 K/mm3 (140-440); Red Cell Distribution Width 20.2 % (13.2-15.2)
[2016-08-25 08:09] LABS: Anion Gap 14 mmol/L; Blood Urea Nitrogen 18 mg/dL (7-17); Calcium 6.6 mg/dL (8.4-10.2); Carbon Dioxide 25 mmol/L (22-30); Chloride 107.8 mmol/L (98-107); Glucose 135 mg/dL (65-100); Potassium 3.5 mmol/L (3.6-5.0); Sodium 143 mmol/L (137-145)
[2016-08-25] MEDS: NORCO 5/325 PO PRN (10:46)
--- NOTE | 2016-08-25 14:31 | Gastroenterology Progress Note ---
Assessment and Plan 1) Anemia 2) S/P PEG placement -CT neg for bleed -Would opt to monitor Hb -Physical exam does not reveal any extremity or trunk hematoma -Cont tube feeds No plans for repeat endoscopy unless she overtly bleeds. Will sign off, but please re-call with any questions. Thank you! Subjective Date of service: 08/25/16 Principal diagnosis: ABDI, Hypernatremia Interval history: Pt seen/examined this AM. CT neg for intra-peritoneal/RP bleed. No signs of GI bleeding. Objective - Constitutional Vitals: Temp Pulse Resp BP Pulse Ox 98.5 F 95 H 16 170/81 97 08/25/16 13:19 08/25/16 13:19 08/25/16 13:19 08/25/16 13:19 08/25/16 13:19 General appearance: cachectic - Neck Neck: supple - Respiratory Respiratory: bilateral: CTA - Cardiovascular Rhythm: regular Heart Sounds: Present: S1 & S2 - Extremities Extremities: No edema - Gastrointestinal General gastrointestinal: Present: soft, tender (mild tenderness throughout, PEG site appears C/D/I) - Labs CBC & Chem 7: 08/25/16 07:01 08/25/16 07:01 Labs: Laboratory Results - last 24 hr 08/24/16 08/24/16 08/24/16 08:04 12:37 18:01 WBC RBC Hgb Hct MCV MCH MCHC RDW Plt Count Lymph % (Auto) [place] % (Auto) Eos % (Auto) Baso % (Auto) Lymph # [place] # Eos # Baso # Seg Neutrophils % Seg Neutrophils # Sodium Potassium Chloride Carbon Dioxide Anion Gap BUN Creatinine Estimated GFR BUN/Creatinine Ratio Glucose POC Glucose 129 H 129 H 151 H Calcium 08/25/16 08/25/16 08/25/16 06:19 07:01 07:01 WBC 12.6 H RBC 3.17 L Hgb 8.5 L Hct 25.9 L MCV 82 MCH 27 L MCHC 33 RDW 20.2 H Plt Count 97 L Lymph % (Auto) 7.9 L [place] % (Auto) 5.5 Eos % (Auto) 0.6 Baso % (Auto) 0.3 Lymph # 1.0 L [place] # 0.7 Eos # 0.1 Baso # 0.0 Seg Neutrophils % 85.7 H Seg Neutrophils # 10.8 H Sodium 143 Potassium 3.5 L Chloride 107.8 H Carbon Dioxide 25 Anion Gap 14 BUN 18 H Creatinine 0.9 Estimated GFR > 60 BUN/Creatinine Ratio 20.00 Glucose 135 H POC Glucose 133 H Calcium 6.6 L 08/25/16 07:42 WBC RBC Hgb Hct MCV MCH MCHC RDW Plt Count Lymph % (Auto) [place] % (Auto) Eos % (Auto) Baso % (Auto) Lymph # [place] # Eos # Baso # Seg Neutrophils % Seg Neutrophils # Sodium Potassium Chloride Carbon Dioxide Anion Gap BUN Creatinine Estimated GFR BUN/Creatinine Ratio Glucose POC Glucose 157 H Calcium
--- NOTE | 2016-08-25 18:53 | Progress Note ---
Assessment and Plan - Patient Problems (1) Acute renal failure Current Visit: Yes Status: Acute Qualifiers: Acute renal failure type: with other specified pathological lesion Qualified Code(s): N17.8 - Other acute kidney failure Plan to address problem: Kidney function improving. Continue management (2) Urinary tract infection Current Visit: Yes Status: Acute Qualifiers: Urinary tract infection type: U Hematuria presence: H Indwelling urinary catheter type: I Encounter type: E Plan to address problem: Continue antibiotics. (3) Hydronephrosis Current Visit: Yes Status: Acute Qualifiers: Hydronephrosis type: H Plan to address problem: Improving status post Hanna catheter. Mild prominence of the renal collecting systems still seen on repeat CT scan. Urology evaluation at some point. Could be done as an outpatient (4) Hypernatremia Current Visit: Yes Status: Acute Plan to address problem: Sodium is improving. Continue free water replacement (5) Hypokalemia Current Visit: Yes Status: Acute Plan to address problem: Potassium improving. Supplement potassium and follow-up levels (6) Metabolic acidosis Current Visit: Yes Status: Acute Plan to address problem: Improved (7) Protein-calorie malnutrition, severe Current Visit: Yes Status: Acute Plan to address problem: Nutritional support Subjective Date of service: 08/25/16 Principal diagnosis: ABDI, Hypernatremia Interval history: Patient seen lying in bed. Confused conversation. She keeps repeating phrases Objective - Exam Narrative Exam: Frail elderly -[place] female lying in bed in no acute distress HEENT normocephalic atraumatic, Neck supple, no thyromegaly no jugular venous distention CVS S1-S2 regular rate rhythm without murmur, rub or gallop Chest clear to auscultation Abdomen soft nondistended nontender no organomegaly no bruit bowel sounds present Extremities no edema Neuro awake, alert oriented x3 no gross deficit - Vital Signs Vital signs: Vital Signs - 12hr 08/25/16 08/25/16 08/25/16 09:22 13:19 17:30 Temperature 98.0 F 98.5 F 97.4 F L Pulse Rate [ 76 95 H 67 Left] Respiratory 18 16 18 Rate Blood Pressure 122/58 170/81 139/60 [Right Arm] O2 Sat by Pulse 98 97 97 Oximetry - Lab 08/25/16 07:01 08/25/16 07:01 Most recent lab results Calcium 6.6 mg/dL (8.4-10.2) L 08/25/16 07:01 Magnesium 1.0 mg/dL (1.7-2.3) L 08/22/16 00:57
[2016-08-25 22:41] LABS: Magnesium 1.1 mg/dL (1.7-2.3); Phosphorous 1.8 mg/dL (2.5-4.5)
[2016-08-25] MEDS: MORPHINE IV PRN (22:58)
--- NOTE | 2016-08-26 04:21 | Progress Note ---
Assessment and Plan - Patient Problems (1) Sepsis Current Visit: Yes Status: Acute Qualifiers: Sepsis type: Streptococcus group B Qualified Code(s): A40.1 - Sepsis due to streptococcus, group B Plan to address problem: Sepsis protocol, IV abx, blood cultures, supportive care, (2) Acute UTI (urinary tract infection) Current Visit: Yes Status: Acute Plan to address problem: IV abx, (3) Acute renal failure Current Visit: Yes Status: Acute Qualifiers: Acute renal failure type: with other specified pathological lesion Qualified Code(s): N17.8 - Other acute kidney failure Plan to address problem: IVF replacement, monitor uop q shift, (4) Encephalopathy acute Current Visit: Yes Status: Acute Plan to address problem: Metabolic: Treat sepsis. supportive care, bed alarm, fall precautions. (5) DVT prophylaxis Current Visit: Yes Status: Acute History Interval history: Pt lying in bed, chronically ill appearing, Pt confused, No reported nursing events. Poor prognosis. Case management consulted regarding Placement SNF/ Hospice. Hospitalist Physical - Constitutional Vitals: Temp Pulse Resp BP Pulse Ox 97.7 F 80 18 180/82 100 08/26/16 00:00 08/26/16 00:00 08/26/16 00:00 08/26/16 00:00 08/26/16 00:00 General appearance: Present: mild distress, cachectic - Neck Neck: Present: supple - Respiratory Respiratory: bilateral: diminished - Cardiovascular Rhythm: regular Heart Sounds: Present: S1 & S2 - Extremities Extremities: no ischemia Peripheral Pulses: within normal limits - Abdominal General gastrointestinal: soft, non-tender, non-distended, no hepatomegaly, no splenomegaly - Integumentary Integumentary: Present: clear, dry, decreased turgor - Psychiatric Psychiatric: no intact judgment & insight, no memory intact - Neurologic Neurologic: no gait normal Results - Labs CBC & Chem 7: 08/25/16 07:01 08/25/16 07:01 Labs: Laboratory Last Values WBC 12.6 K/mm3 (4.5-11.0) H 08/25/16 07:01 RBC 3.17 M/mm3 (3.65-5.03) L 08/25/16 07:01 Hgb 8.5 gm/dl (10.1-14.3) L 08/25/16 07:01 Hct 25.9 % (30.3-42.9) L 08/25/16 07:01 MCV 82 fl (79-97) 08/25/16 07:01 MCH 27 pg (28-32) L 08/25/16 07:01 MCHC 33 % (30-34) 08/25/16 07:01 RDW 20.2 % (13.2-15.2) H 08/25/16 07:01 Plt Count 97 K/mm3 (140-440) L 08/25/16 07:01 Lymph % (Auto) 7.9 % (13.4-35.0) L 08/25/16 07:01 [place] % (Auto) 5.5 % (0.0-7.3) 08/25/16 07:01 Eos % (Auto) 0.6 % (0.0-4.3) 08/25/16 07:01 Baso % (Auto) 0.3 % (0.0-1.8) 08/25/16 07:01 Lymph # 1.0 K/mm3 (1.2-5.4) L 08/25/16 07:01 [place] # 0.7 K/mm3 (0.0-0.8) 08/25/16 07:01 Eos # 0.1 K/mm3 (0.0-0.4) 08/25/16 07:01 Baso # 0.0 K/mm3 (0.0-0.1) 08/25/16 07:01 Add Manual Diff Complete 08/19/16 09:43 Total Counted 100 08/19/16 09:43 Seg Neutrophils % 85.7 % (40.0-70.0) H 08/25/16 07:01 Seg Neuts % (Manual) 86.0 % (40.0-70.0) H 08/19/16 09:43 Band Neutrophils % 0 % 08/19/16 09:43 Lymphocytes % (Manual) 14.0 % (13.4-35.0) 08/19/16 09:43 Reactive Lymphs % (Man) 0 % 08/19/16 09:43 Monocytes % (Manual) 0 % (0.0-7.3) 08/19/16 09:43 Eosinophils % (Manual) 0 % (0.0-4.3) 08/19/16 09:43 Basophils % (Manual) 0 % (0.0-1.8) 08/19/16 09:43 Metamyelocytes % 0 % 08/19/16 09:43 Myelocytes % 0 % 08/19/16 09:43 Promyelocytes % 0 % 08/19/16 09:43 Blast Cells % 0 % 08/19/16 09:43 Nucleated RBC % Not Reportable 08/19/16 09:43 Seg Neutrophils # 10.8 K/mm3 (1.8-7.7) H 08/25/16 07:01 Seg Neutrophils # Man 13.3 K/mm3 (1.8-7.7) H 08/19/16 09:43 Band Neutrophils # 0.0 K/mm3 08/19/16 09:43 Lymphocytes # (Manual) 2.2 K/mm3 (1.2-5.4) 08/19/16 09:43 Abs React Lymphs (Man) 0.0 K/mm3 08/19/16 09:43 Monocytes # (Manual) 0.0 K/mm3 (0.0-0.8) 08/19/16 09:43 Eosinophils # (Manual) 0.0 K/mm3 (0.0-0.4) 08/19/16 09:43 Basophils # (Manual) 0.0 K/mm3 (0.0-0.1) 08/19/16 09:43 Metamyelocytes # 0.0 K/mm3 08/19/16 09:43 Myelocytes # 0.0 K/mm3 08/19/16 09:43 Promyelocytes # 0.0 K/mm3 08/19/16 09:43 Blast Cells # 0.0 K/mm3 08/19/16 09:43 Pathologist Review 08/15/16 10:57 WBC Morphology Not Reportable 08/19/16 09:43 Hypersegmented Neuts Not Reportable 08/19/16 09:43 Hyposegmented Neuts Not Reportable 08/19/16 09:43 Hypogranular Neuts Not Reportable 08/19/16 09:43 Smudge Cells Not Reportable 08/19/16 09:43 Toxic Granulation Not Reportable 08/19/16 09:43 Toxic Vacuolation Not Reportable 08/19/16 09:43 Dohle Bodies Not Reportable 08/19/16 09:43 Pelger-Huet Anomaly Not Reportable 08/19/16 09:43 Celestine Rods Not Reportable 08/19/16 09:43 Platelet Estimate Cons 08/19/16 09:43 Clumped Platelets Not Reportable 08/19/16 09:43 Plt Clumps, EDTA Not Reportable 08/19/16 09:43 Large Platelets Few 08/19/16 09:43 Giant Platelets Not Reportable 08/19/16 09:43 Platelet Satelliting Not Reportable 08/19/16 09:43 Plt Morphology Comment Not Reportable 08/19/16 09:43 RBC Morphology Not Reportable 08/19/16 09:43 Dimorphic RBCs Not Reportable 08/19/16 09:43 Polychromasia Not Reportable 08/19/16 09:43 Hypochromasia 2+ 08/19/16 09:43 Poikilocytosis Not Reportable 08/19/16 09:43 Anisocytosis 1+ 08/19/16 09:43 Microcytosis Not Reportable 08/19/16 09:43 Macrocytosis Not Reportable 08/19/16 09:43 Spherocytes Not Reportable 08/19/16 09:43 Pappenheimer Bodies Not Reportable 08/19/16 09:43 Sickle Cells Not Reportable 08/19/16 09:43 Target Cells 1+ 08/19/16 09:43 Tear Drop Cells Not Reportable 08/19/16 09:43 Ovalocytes Not Reportable 08/19/16 09:43 Stomatocytes Few 08/17/16 07:25 Helmet Cells Not Reportable 08/19/16 09:43 Villalob[place] Bodies Not Reportable 08/19/16 09:43 [place] Rings Not Reportable 08/19/16 09:43 [place] Cells Not Reportable 08/19/16 09:43 Bite Cells Not Reportable 08/19/16 09:43 Crenated Cell Not Reportable 08/19/16 09:43 Elliptocytes Not Reportable 08/19/16 09:43 Acanthocytes (Spur) Not Reportable 08/19/16 09:43 Rouleaux Not Reportable 08/19/16 09:43 Hemoglobin C Crystals Not Reportable 08/19/16 09:43 Schistocytes Not Reportable 08/19/16 09:43 Malaria parasites Not Reportable 08/19/16 09:43 Isauro Bodies Not Reportable 08/19/16 09:43 Hem Pathologist Commnt No 08/19/16 09:43 PT 15.1 Sec. (12.2-14.9) H 08/21/16 09:11 INR 1.20 (0.87-1.13) H 08/21/16 09:11 Sodium 143 mmol/L (137-145) 08/25/16 07:01 Potassium 3.5 mmol/L (3.6-5.0) L 08/25/16 07:01 Chloride 107.8 mmol/L (98-107) H 08/25/16 07:01 Carbon Dioxide 25 mmol/L (22-30) 08/25/16 07:01 Anion Gap 14 mmol/L 08/25/16 07:01 BUN 18 mg/dL (7-17) H 08/25/16 07:01 Creatinine 0.9 mg/dL (0.7-1.2) 08/25/16 07:01 Estimated GFR > 60 ml/min 08/25/16 07:01 BUN/Creatinine Ratio 20.00 % 08/25/16 07:01 Glucose 135 mg/dL (65-100) H 08/25/16 07:01 POC Glucose 121 (70-105) H 08/26/16 00:05 Lactic Acid 2.5 mmol/L (0.7-2.0) H* 08/15/16 18:00 Calcium 6.6 mg/dL (8.4-10.2) L 08/25/16 07:01 Phosphorus 1.8 mg/dL (2.5-4.5) L 08/25/16 07:01 Magnesium 1.1 mg/dL (1.7-2.3) L 08/25/16 07:01 Total Bilirubin 0.4 mg/dL (0.1-1.2) 08/20/16 08:49 AST 20 units/L (5-40) 08/20/16 08:49 ALT 14 units/L (7-56) 08/20/16 08:49 Alkaline Phosphatase 103 units/L (35-129) 08/20/16 08:49 Total Creatine Kinase 52 units/L (30-135) 08/13/16 14:30 NT-Pro-B Natriuret Pep 495.2 pg/mL (0-900) 08/13/16 14:30 Total Protein 6.2 g/dL (6.3-8.2) L 08/20/16 08:49 Albumin 2.3 g/dL (3.9-5) L 08/20/16 08:49 Albumin/Globulin Ratio 0.6 % 08/20/16 08:49 Urine Color Yellow (Yellow) 08/13/16 16:42 Urine Turbidity Cloudy (Clear) 08/13/16 16:42 Urine pH 7.0 (5.0-7.0) 08/13/16 16:42 Ur Specific [place] 1.009 (1.003-1.030) 08/13/16 16:42 Urine Protein 100 mg/dl mg/dL (Negative) 08/13/16 16:42 Urine Glucose (UA) Neg mg/dL (Negative) 08/13/16 16:42 Urine Ketones Neg mg/dL (Negative) 08/13/16 16:42 Urine Blood Mod (Negative) 08/13/16 16:42 Urine Nitrite Neg (Negative) 08/13/16 16:42 Urine Bilirubin Neg (Negative) 08/13/16 16:42 Urine Urobilinogen < 2.0 mg/dL (<2.0) 08/13/16 16:42 Ur Leukocyte Esterase Lg (Negative) 08/13/16 16:42 Urine WBC (Auto) 133.0 /HPF (0.0-6.0) H 08/13/16 16:42 Urine RBC (Auto) 5.0 /HPF (0.0-6.0) 08/13/16 16:42 U Epithel Cells (Auto) 1.0 /HPF (0-13.0) 08/13/16 16:42 Urine Bacteria (Auto) 4+ /HPF (Negative) 08/13/16 16:42 Urine Mucus Few /HPF 08/13/16 16:42 Random Vancomycin 8.6 ug/mL (0-40.0) 08/17/16 06:47 Blood Type B POSITIVE 08/20/16 11:11 Antibody Screen Negative 08/20/16 11:11 Crossmatch See Detail 08/20/16 11:11
[2016-08-26] MEDS: ROCEPHIN/NS 1 GM/50 ML 1 GM/50 ML BAG IV SCH ×2 (08:34→17:24)
--- NOTE | 2016-08-26 10:45 | Progress Note ---
Assessment and Plan - Patient Problems (1) Acute renal failure Current Visit: Yes Status: Acute Qualifiers: Acute renal failure type: with other specified pathological lesion Qualified Code(s): N17.8 - Other acute kidney failure Plan to address problem: Kidney function was improving. Labs not drawn this morning. Continue management (2) Urinary tract infection Current Visit: Yes Status: Acute Qualifiers: Urinary tract infection type: U Hematuria presence: H Indwelling urinary catheter type: I Encounter type: E Plan to address problem: Continue antibiotics. (3) Hydronephrosis Current Visit: Yes Status: Acute Qualifiers: Hydronephrosis type: H Plan to address problem: Improving status post Hanna catheter. Mild prominence of the renal collecting systems still seen on repeat CT scan. Urology evaluation at some point. Could be done as an outpatient (4) Hypernatremia Current Visit: Yes Status: Acute Plan to address problem: Sodium is improving. Continue free water replacement (5) Hypokalemia Current Visit: Yes Status: Acute Plan to address problem: Potassium improving. Supplement potassium and follow-up levels (6) Metabolic acidosis Current Visit: Yes Status: Acute Plan to address problem: Improved (7) Protein-calorie malnutrition, severe Current Visit: Yes Status: Acute Plan to address problem: Nutritional support Subjective Date of service: 08/26/16 Principal diagnosis: ABDI, Hypernatremia Interval history: Patient seen lying in bed. She is responding appropriately today. Objective - Exam Narrative Exam: Frail elderly -[place] female lying in bed in no acute distress HEENT normocephalic atraumatic, Neck supple, no thyromegaly no jugular venous distention CVS S1-S2 regular rate rhythm without murmur, rub or gallop Chest clear to auscultation Abdomen soft nondistended nontender no organomegaly no bruit bowel sounds present Extremities no edema Neuro awake, alert oriented x3 no gross deficit - Vital Signs Vital signs: Vital Signs - 12hr 08/26/16 08/26/16 08/26/16 00:00 04:35 08:00 Temperature 97.7 F 97.5 F L 97.2 F L Pulse Rate [ 102 H Right Dorsalis Pedis] Pulse Rate [ 80 92 H Right Radial] Respiratory 18 20 20 Rate Blood Pressure 132/67 [Left Arm] Blood Pressure 180/82 135/66 [Right Arm] O2 Sat by Pulse 100 100 100 Oximetry - Lab 08/25/16 07:01 08/25/16 07:01 Most recent lab results Calcium 6.6 mg/dL (8.4-10.2) L 08/25/16 07:01 Phosphorus 1.8 mg/dL (2.5-4.5) L 08/25/16 07:01 Magnesium 1.1 mg/dL (1.7-2.3) L 08/25/16 07:01
[2016-08-26] MEDS: PHOS-NAK PO SCH ×3 (14:06→21:44)
[2016-08-26] MEDS: MAG-OX PO SCH ×2 (14:06→21:44)
[2016-08-26] MEDS: NORCO 5/325 PO PRN (21:43)
--- NOTE | 2016-08-26 23:05 | Progress Note ---
Assessment and Plan - Patient Problems (1) Sepsis Current Visit: Yes Status: Resolved Qualifiers: Sepsis type: Streptococcus group B Qualified Code(s): A40.1 - Sepsis due to streptococcus, group B (2) Acute UTI (urinary tract infection) Current Visit: Yes Status: Resolved (3) Acute renal failure Current Visit: Yes Status: Acute Qualifiers: Acute renal failure type: with other specified pathological lesion Qualified Code(s): N17.8 - Other acute kidney failure Plan to address problem: IVF replacement, monitor uop q shift, (4) Encephalopathy acute Current Visit: Yes Status: Acute Plan to address problem: Metabolic: Treat sepsis. supportive care, bed alarm, fall precautions. (5) DVT prophylaxis Current Visit: Yes Status: Acute History Interval history: Pt lying in bed, chronically ill appearing, Pt has episodes of lethargy, No reported nursing events. Poor prognosis. Case management consulted regarding Placement SNF/Hospice. Hospitalist Physical - Constitutional Vitals: Temp Pulse Resp BP Pulse Ox 81 F L 80 20 119/57 100 08/26/16 20:25 08/26/16 22:00 08/26/16 20:25 08/26/16 20:25 08/26/16 20:25 General appearance: Present: mild distress, cachectic - Neck Neck: Present: supple - Respiratory Respiratory: bilateral: diminished - Cardiovascular Rhythm: regular Heart Sounds: Present: S1 & S2 Peripheral Pulses: within normal limits - Abdominal General gastrointestinal: soft, non-tender, non-distended, other (PEG in place) - Integumentary Integumentary: Present: clear, dry, decreased turgor - Psychiatric Psychiatric: no intact judgment & insight, no memory intact - Neurologic Neurologic: CNII-XII intact, no gait normal Results - Labs CBC & Chem 7: 08/25/16 07:01 08/25/16 07:01 Labs: Laboratory Last Values WBC 12.6 K/mm3 (4.5-11.0) H 08/25/16 07:01 RBC 3.17 M/mm3 (3.65-5.03) L 08/25/16 07:01 Hgb 8.5 gm/dl (10.1-14.3) L 08/25/16 07:01 Hct 25.9 % (30.3-42.9) L 08/25/16 07:01 MCV 82 fl (79-97) 08/25/16 07:01 MCH 27 pg (28-32) L 08/25/16 07:01 MCHC 33 % (30-34) 08/25/16 07:01 RDW 20.2 % (13.2-15.2) H 08/25/16 07:01 Plt Count 97 K/mm3 (140-440) L 08/25/16 07:01 Lymph % (Auto) 7.9 % (13.4-35.0) L 08/25/16 07:01 [place] % (Auto) 5.5 % (0.0-7.3) 08/25/16 07:01 Eos % (Auto) 0.6 % (0.0-4.3) 08/25/16 07:01 Baso % (Auto) 0.3 % (0.0-1.8) 08/25/16 07:01 Lymph # 1.0 K/mm3 (1.2-5.4) L 08/25/16 07:01 [place] # 0.7 K/mm3 (0.0-0.8) 08/25/16 07:01 Eos # 0.1 K/mm3 (0.0-0.4) 08/25/16 07:01 Baso # 0.0 K/mm3 (0.0-0.1) 08/25/16 07:01 Add Manual Diff Complete 08/19/16 09:43 Total Counted 100 08/19/16 09:43 Seg Neutrophils % 85.7 % (40.0-70.0) H 08/25/16 07:01 Seg Neuts % (Manual) 86.0 % (40.0-70.0) H 08/19/16 09:43 Band Neutrophils % 0 % 08/19/16 09:43 Lymphocytes % (Manual) 14.0 % (13.4-35.0) 08/19/16 09:43 Reactive Lymphs % (Man) 0 % 08/19/16 09:43 Monocytes % (Manual) 0 % (0.0-7.3) 08/19/16 09:43 Eosinophils % (Manual) 0 % (0.0-4.3) 08/19/16 09:43 Basophils % (Manual) 0 % (0.0-1.8) 08/19/16 09:43 Metamyelocytes % 0 % 08/19/16 09:43 Myelocytes % 0 % 08/19/16 09:43 Promyelocytes % 0 % 08/19/16 09:43 Blast Cells % 0 % 08/19/16 09:43 Nucleated RBC % Not Reportable 08/19/16 09:43 Seg Neutrophils # 10.8 K/mm3 (1.8-7.7) H 08/25/16 07:01 Seg Neutrophils # Man 13.3 K/mm3 (1.8-7.7) H 08/19/16 09:43 Band Neutrophils # 0.0 K/mm3 08/19/16 09:43 Lymphocytes # (Manual) 2.2 K/mm3 (1.2-5.4) 08/19/16 09:43 Abs React Lymphs (Man) 0.0 K/mm3 08/19/16 09:43 Monocytes # (Manual) 0.0 K/mm3 (0.0-0.8) 08/19/16 09:43 Eosinophils # (Manual) 0.0 K/mm3 (0.0-0.4) 08/19/16 09:43 Basophils # (Manual) 0.0 K/mm3 (0.0-0.1) 08/19/16 09:43 Metamyelocytes # 0.0 K/mm3 08/19/16 09:43 Myelocytes # 0.0 K/mm3 08/19/16 09:43 Promyelocytes # 0.0 K/mm3 08/19/16 09:43 Blast Cells # 0.0 K/mm3 08/19/16 09:43 Pathologist Review 08/15/16 10:57 WBC Morphology Not Reportable 08/19/16 09:43 Hypersegmented Neuts Not Reportable 08/19/16 09:43 Hyposegmented Neuts Not Reportable 08/19/16 09:43 Hypogranular Neuts Not Reportable 08/19/16 09:43 Smudge Cells Not Reportable 08/19/16 09:43 Toxic Granulation Not Reportable 08/19/16 09:43 Toxic Vacuolation Not Reportable 08/19/16 09:43 Dohle Bodies Not Reportable 08/19/16 09:43 Pelger-Huet Anomaly Not Reportable 08/19/16 09:43 Celestine Rods Not Reportable 08/19/16 09:43 Platelet Estimate Cons 08/19/16 09:43 Clumped Platelets Not Reportable 08/19/16 09:43 Plt Clumps, EDTA Not Reportable 08/19/16 09:43 Large Platelets Few 08/19/16 09:43 Giant Platelets Not Reportable 08/19/16 09:43 Platelet Satelliting Not Reportable 08/19/16 09:43 Plt Morphology Comment Not Reportable 08/19/16 09:43 RBC Morphology Not Reportable 08/19/16 09:43 Dimorphic RBCs Not Reportable 08/19/16 09:43 Polychromasia Not Reportable 08/19/16 09:43 Hypochromasia 2+ 08/19/16 09:43 Poikilocytosis Not Reportable 08/19/16 09:43 Anisocytosis 1+ 08/19/16 09:43 Microcytosis Not Reportable 08/19/16 09:43 Macrocytosis Not Reportable 08/19/16 09:43 Spherocytes Not Reportable 08/19/16 09:43 Pappenheimer Bodies Not Reportable 08/19/16 09:43 Sickle Cells Not Reportable 08/19/16 09:43 Target Cells 1+ 08/19/16 09:43 Tear Drop Cells Not Reportable 08/19/16 09:43 Ovalocytes Not Reportable 08/19/16 09:43 Stomatocytes Few 08/17/16 07:25 Helmet Cells Not Reportable 08/19/16 09:43 Villalob[place] Bodies Not Reportable 08/19/16 09:43 [place] Rings Not Reportable 08/19/16 09:43 [place] Cells Not Reportable 08/19/16 09:43 Bite Cells Not Reportable 08/19/16 09:43 Crenated Cell Not Reportable 08/19/16 09:43 Elliptocytes Not Reportable 08/19/16 09:43 Acanthocytes (Spur) Not Reportable 08/19/16 09:43 Rouleaux Not Reportable 08/19/16 09:43 Hemoglobin C Crystals Not Reportable 08/19/16 09:43 Schistocytes Not Reportable 08/19/16 09:43 Malaria parasites Not Reportable 08/19/16 09:43 Isauro Bodies Not Reportable 08/19/16 09:43 Hem Pathologist Commnt No 08/19/16 09:43 PT 15.1 Sec. (12.2-14.9) H 08/21/16 09:11 INR 1.20 (0.87-1.13) H 08/21/16 09:11 Sodium 143 mmol/L (137-145) 08/25/16 07:01 Potassium 3.5 mmol/L (3.6-5.0) L 08/25/16 07:01 Chloride 107.8 mmol/L (98-107) H 08/25/16 07:01 Carbon Dioxide 25 mmol/L (22-30) 08/25/16 07:01 Anion Gap 14 mmol/L 08/25/16 07:01 BUN 18 mg/dL (7-17) H 08/25/16 07:01 Creatinine 0.9 mg/dL (0.7-1.2) 08/25/16 07:01 Estimated GFR > 60 ml/min 08/25/16 07:01 BUN/Creatinine Ratio 20.00 % 08/25/16 07:01 Glucose 135 mg/dL (65-100) H 08/25/16 07:01 POC Glucose 151 (70-105) H 08/26/16 16:57 Lactic Acid 2.5 mmol/L (0.7-2.0) H* 08/15/16 18:00 Calcium 6.6 mg/dL (8.4-10.2) L 08/25/16 07:01 Phosphorus 1.8 mg/dL (2.5-4.5) L 08/25/16 07:01 Magnesium 1.1 mg/dL (1.7-2.3) L 08/25/16 07:01 Total Bilirubin 0.4 mg/dL (0.1-1.2) 08/20/16 08:49 AST 20 units/L (5-40) 08/20/16 08:49 ALT 14 units/L (7-56) 08/20/16 08:49 Alkaline Phosphatase 103 units/L (35-129) 08/20/16 08:49 Total Creatine Kinase 52 units/L (30-135) 08/13/16 14:30 NT-Pro-B Natriuret Pep 495.2 pg/mL (0-900) 08/13/16 14:30 Total Protein 6.2 g/dL (6.3-8.2) L 08/20/16 08:49 Albumin 2.3 g/dL (3.9-5) L 08/20/16 08:49 Albumin/Globulin Ratio 0.6 % 08/20/16 08:49 Urine Color Yellow (Yellow) 08/13/16 16:42 Urine Turbidity Cloudy (Clear) 08/13/16 16:42 Urine pH 7.0 (5.0-7.0) 08/13/16 16:42 Ur Specific [place] 1.009 (1.003-1.030) 08/13/16 16:42 Urine Protein 100 mg/dl mg/dL (Negative) 08/13/16 16:42 Urine Glucose (UA) Neg mg/dL (Negative) 08/13/16 16:42 Urine Ketones Neg mg/dL (Negative) 08/13/16 16:42 Urine Blood Mod (Negative) 08/13/16 16:42 Urine Nitrite Neg (Negative) 08/13/16 16:42 Urine Bilirubin Neg (Negative) 08/13/16 16:42 Urine Urobilinogen < 2.0 mg/dL (<2.0) 08/13/16 16:42 Ur Leukocyte Esterase Lg (Negative) 08/13/16 16:42 Urine WBC (Auto) 133.0 /HPF (0.0-6.0) H 08/13/16 16:42 Urine RBC (Auto) 5.0 /HPF (0.0-6.0) 08/13/16 16:42 U Epithel Cells (Auto) 1.0 /HPF (0-13.0) 08/13/16 16:42 Urine Bacteria (Auto) 4+ /HPF (Negative) 08/13/16 16:42 Urine Mucus Few /HPF 08/13/16 16:42 Random Vancomycin 8.6 ug/mL (0-40.0) 08/17/16 06:47 Blood Type B POSITIVE 08/20/16 11:11 Antibody Screen Negative 08/20/16 11:11 Crossmatch See Detail 08/20/16 11:11
[2016-08-27] MEDS: PHOS-NAK PO SCH ×3 (05:08→21:22)
[2016-08-27] MEDS: D5W 1,000 ML IV SCH ×2 (05:14→16:43)
[2016-08-27 08:17] LABS: BUN/Creatinine Ratio 23.75; Blood Urea Nitrogen 19 mg/dL (7-17); Calcium 7.3 mg/dL (8.4-10.2); Carbon Dioxide 32 mmol/L (22-30); Chloride 99.9 mmol/L (98-107); Glucose 110 mg/dL (65-100); Magnesium 1.4 mg/dL (1.7-2.3); Potassium 4.2 mmol/L (3.6-5.0); Sodium 143 mmol/L (137-145)
[2016-08-27 08:18] LABS: Anion Gap 15 mmol/L
[2016-08-27] MEDS: MAG-OX PO SCH ×2 (09:18→21:23)
--- NOTE | 2016-08-27 10:08 | Progress Note ---
Assessment and Plan - Patient Problems (1) Acute renal failure Current Visit: Yes Status: Acute Qualifiers: Acute renal failure type: with other specified pathological lesion Qualified Code(s): N17.8 - Other acute kidney failure Plan to address problem: Kidney function was improving. Continue management (2) Urinary tract infection Current Visit: Yes Status: Acute Qualifiers: Urinary tract infection type: U Hematuria presence: H Indwelling urinary catheter type: I Encounter type: E Plan to address problem: Continue antibiotics. (3) Hydronephrosis Current Visit: Yes Status: Acute Qualifiers: Hydronephrosis type: H Plan to address problem: Improving status post Hanna catheter. Mild prominence of the renal collecting systems still seen on repeat CT scan. Urology evaluation at some point. Could be done as an outpatient (4) Hypernatremia Current Visit: Yes Status: Acute Plan to address problem: Sodium is improving. Continue free water replacement (5) Hypomagnesemia Current Visit: Yes Status: Acute Plan to address problem: Supplement Mag and follow-up levels (6) Hypokalemia Current Visit: Yes Status: Acute Plan to address problem: Potassium improving. Supplement potassium and follow-up levels (7) Metabolic acidosis Current Visit: Yes Status: Acute Plan to address problem: Improved (8) Protein-calorie malnutrition, severe Current Visit: Yes Status: Acute Plan to address problem: Nutritional support Subjective Date of service: 08/27/16 Principal diagnosis: ABDI, Hypernatremia Interval history: Patient seen lying in bed. She is responding appropriately again today. Complains of abdominal discomfort on inquiry Objective - Exam Narrative Exam: Frail elderly -[place] female lying in bed in no acute distress HEENT normocephalic atraumatic, Neck supple, no thyromegaly no jugular venous distention CVS S1-S2 regular rate rhythm without murmur, rub or gallop Chest clear to auscultation Abdomen soft nondistended nontender no organomegaly no bruit bowel sounds present Extremities no edema Neuro awake, alert oriented x3 no gross deficit - Vital Signs Vital signs: Vital Signs - 12hr 08/27/16 08/27/16 01:09 04:30 Temperature 98.2 F 97.7 F Pulse Rate [ 80 Right Dorsalis Pedis] Pulse Rate [ 82 Right Radial] Respiratory 16 20 Rate Blood Pressure 127/57 120/58 [Right Arm] O2 Sat by Pulse 100 100 Oximetry - Lab 08/25/16 07:01 08/27/16 06:34 Most recent lab results Calcium 7.3 mg/dL (8.4-10.2) L 08/27/16 06:34 Phosphorus 3.0 mg/dL (2.5-4.5) 08/27/16 06:34 Magnesium 1.4 mg/dL (1.7-2.3) L 08/27/16 06:34
[2016-08-27] MEDS ORDERED: MAGNESIUM SULFATE 1 GM in NACL 0.9% 50 ML IV ONE (10:09)
[2016-08-27] MEDS: ROCEPHIN/NS 1 GM/50 ML 1 GM/50 ML BAG IV SCH (16:43)
--- NOTE | 2016-08-27 17:15 | Progress Note ---
Assessment and Plan - Patient Problems (1) Sepsis Current Visit: Yes Status: Resolved Qualifiers: Sepsis type: Streptococcus group B Qualified Code(s): A40.1 - Sepsis due to streptococcus, group B Plan to address problem: Sepsis protocol, IV abx, blood cultures, supportive care, (2) Acute UTI (urinary tract infection) Current Visit: Yes Status: Resolved Plan to address problem: IV abx, (3) Acute renal failure Current Visit: Yes Status: Acute Qualifiers: Acute renal failure type: with other specified pathological lesion Qualified Code(s): N17.8 - Other acute kidney failure Plan to address problem: IVF replacement, monitor uop q shift, (4) Encephalopathy acute Current Visit: Yes Status: Acute Plan to address problem: Metabolic: Treat sepsis. supportive care, bed alarm, fall precautions. (5) DVT prophylaxis Current Visit: Yes Status: Acute History Interval history: Pt lying in bed, chronically ill appearing, Pt has episodes of lethargy, No reported nursing events. Poor prognosis. Case management consulted regarding Placement SNF/Hospice. Hospitalist Physical - Constitutional Vitals: Temp Pulse Resp BP Pulse Ox 98.2 F 74 24 169/77 96 08/27/16 09:30 08/27/16 10:23 08/27/16 09:30 08/27/16 09:30 08/27/16 09:30 General appearance: Present: mild distress, cachectic - Neck Neck: Present: supple - Respiratory Respiratory: bilateral: diminished - Cardiovascular Rhythm: regular Heart Sounds: Present: S1 & S2 Peripheral Pulses: within normal limits - Abdominal General gastrointestinal: soft, non-distended - Integumentary Integumentary: Present: clear, dry, decreased turgor - Psychiatric Psychiatric: no intact judgment & insight, no memory intact - Neurologic Neurologic: no gait normal Results - Labs CBC & Chem 7: 08/25/16 07:01 08/27/16 06:34 Labs: Laboratory Last Values WBC 12.6 K/mm3 (4.5-11.0) H 08/25/16 07:01 RBC 3.17 M/mm3 (3.65-5.03) L 08/25/16 07:01 Hgb 8.5 gm/dl (10.1-14.3) L 08/25/16 07:01 Hct 25.9 % (30.3-42.9) L 08/25/16 07:01 MCV 82 fl (79-97) 08/25/16 07:01 MCH 27 pg (28-32) L 08/25/16 07:01 MCHC 33 % (30-34) 08/25/16 07:01 RDW 20.2 % (13.2-15.2) H 08/25/16 07:01 Plt Count 97 K/mm3 (140-440) L 08/25/16 07:01 Lymph % (Auto) 7.9 % (13.4-35.0) L 08/25/16 07:01 [place] % (Auto) 5.5 % (0.0-7.3) 08/25/16 07:01 Eos % (Auto) 0.6 % (0.0-4.3) 08/25/16 07:01 Baso % (Auto) 0.3 % (0.0-1.8) 08/25/16 07:01 Lymph # 1.0 K/mm3 (1.2-5.4) L 08/25/16 07:01 [place] # 0.7 K/mm3 (0.0-0.8) 08/25/16 07:01 Eos # 0.1 K/mm3 (0.0-0.4) 08/25/16 07:01 Baso # 0.0 K/mm3 (0.0-0.1) 08/25/16 07:01 Add Manual Diff Complete 08/19/16 09:43 Total Counted 100 08/19/16 09:43 Seg Neutrophils % 85.7 % (40.0-70.0) H 08/25/16 07:01 Seg Neuts % (Manual) 86.0 % (40.0-70.0) H 08/19/16 09:43 Band Neutrophils % 0 % 08/19/16 09:43 Lymphocytes % (Manual) 14.0 % (13.4-35.0) 08/19/16 09:43 Reactive Lymphs % (Man) 0 % 08/19/16 09:43 Monocytes % (Manual) 0 % (0.0-7.3) 08/19/16 09:43 Eosinophils % (Manual) 0 % (0.0-4.3) 08/19/16 09:43 Basophils % (Manual) 0 % (0.0-1.8) 08/19/16 09:43 Metamyelocytes % 0 % 08/19/16 09:43 Myelocytes % 0 % 08/19/16 09:43 Promyelocytes % 0 % 08/19/16 09:43 Blast Cells % 0 % 08/19/16 09:43 Nucleated RBC % Not Reportable 08/19/16 09:43 Seg Neutrophils # 10.8 K/mm3 (1.8-7.7) H 08/25/16 07:01 Seg Neutrophils # Man 13.3 K/mm3 (1.8-7.7) H 08/19/16 09:43 Band Neutrophils # 0.0 K/mm3 08/19/16 09:43 Lymphocytes # (Manual) 2.2 K/mm3 (1.2-5.4) 08/19/16 09:43 Abs React Lymphs (Man) 0.0 K/mm3 08/19/16 09:43 Monocytes # (Manual) 0.0 K/mm3 (0.0-0.8) 08/19/16 09:43 Eosinophils # (Manual) 0.0 K/mm3 (0.0-0.4) 08/19/16 09:43 Basophils # (Manual) 0.0 K/mm3 (0.0-0.1) 08/19/16 09:43 Metamyelocytes # 0.0 K/mm3 08/19/16 09:43 Myelocytes # 0.0 K/mm3 08/19/16 09:43 Promyelocytes # 0.0 K/mm3 08/19/16 09:43 Blast Cells # 0.0 K/mm3 08/19/16 09:43 Pathologist Review 08/15/16 10:57 WBC Morphology Not Reportable 08/19/16 09:43 Hypersegmented Neuts Not Reportable 08/19/16 09:43 Hyposegmented Neuts Not Reportable 08/19/16 09:43 Hypogranular Neuts Not Reportable 08/19/16 09:43 Smudge Cells Not Reportable 08/19/16 09:43 Toxic Granulation Not Reportable 08/19/16 09:43 Toxic Vacuolation Not Reportable 08/19/16 09:43 Dohle Bodies Not Reportable 08/19/16 09:43 Pelger-Huet Anomaly Not Reportable 08/19/16 09:43 Celestine Rods Not Reportable 08/19/16 09:43 Platelet Estimate Cons 08/19/16 09:43 Clumped Platelets Not Reportable 08/19/16 09:43 Plt Clumps, EDTA Not Reportable 08/19/16 09:43 Large Platelets Few 08/19/16 09:43 Giant Platelets Not Reportable 08/19/16 09:43 Platelet Satelliting Not Reportable 08/19/16 09:43 Plt Morphology Comment Not Reportable 08/19/16 09:43 RBC Morphology Not Reportable 08/19/16 09:43 Dimorphic RBCs Not Reportable 08/19/16 09:43 Polychromasia Not Reportable 08/19/16 09:43 Hypochromasia 2+ 08/19/16 09:43 Poikilocytosis Not Reportable 08/19/16 09:43 Anisocytosis 1+ 08/19/16 09:43 Microcytosis Not Reportable 08/19/16 09:43 Macrocytosis Not Reportable 08/19/16 09:43 Spherocytes Not Reportable 08/19/16 09:43 Pappenheimer Bodies Not Reportable 08/19/16 09:43 Sickle Cells Not Reportable 08/19/16 09:43 Target Cells 1+ 08/19/16 09:43 Tear Drop Cells Not Reportable 08/19/16 09:43 Ovalocytes Not Reportable 08/19/16 09:43 Stomatocytes Few 08/17/16 07:25 Helmet Cells Not Reportable 08/19/16 09:43 [place] Bodies Not Reportable 08/19/16 09:43 [place] Rings Not Reportable 08/19/16 09:43 [place] Cells Not Reportable 08/19/16 09:43 Bite Cells Not Reportable 08/19/16 09:43 Crenated Cell Not Reportable 08/19/16 09:43 Elliptocytes Not Reportable 08/19/16 09:43 Acanthocytes (Spur) Not Reportable 08/19/16 09:43 Rouleaux Not Reportable 08/19/16 09:43 Hemoglobin C Crystals Not Reportable 08/19/16 09:43 Schistocytes Not Reportable 08/19/16 09:43 Malaria parasites Not Reportable 08/19/16 09:43 Isauro Bodies Not Reportable 08/19/16 09:43 Hem Pathologist Commnt No 08/19/16 09:43 PT 15.1 Sec. (12.2-14.9) H 08/21/16 09:11 INR 1.20 (0.87-1.13) H 08/21/16 09:11 Sodium 143 mmol/L (137-145) 08/27/16 06:34 Potassium 4.2 mmol/L (3.6-5.0) 08/27/16 06:34 Chloride 99.9 mmol/L (98-107) 08/27/16 06:34 Carbon Dioxide 32 mmol/L (22-30) H D 08/27/16 06:34 Anion Gap 15 mmol/L 08/27/16 06:34 BUN 19 mg/dL (7-17) H 08/27/16 06:34 Creatinine 0.8 mg/dL (0.7-1.2) 08/27/16 06:34 Estimated GFR > 60 ml/min 08/27/16 06:34 BUN/Creatinine Ratio 23.75 % 08/27/16 06:34 Glucose 110 mg/dL (65-100) H 08/27/16 06:34 POC Glucose 145 (70-105) H 08/27/16 12:07 Lactic Acid 2.5 mmol/L (0.7-2.0) H* 08/15/16 18:00 Calcium 7.3 mg/dL (8.4-10.2) L 08/27/16 06:34 Phosphorus 3.0 mg/dL (2.5-4.5) 08/27/16 06:34 Magnesium 1.4 mg/dL (1.7-2.3) L 08/27/16 06:34 Total Bilirubin 0.4 mg/dL (0.1-1.2) 08/20/16 08:49 AST 20 units/L (5-40) 08/20/16 08:49 ALT 14 units/L (7-56) 08/20/16 08:49 Alkaline Phosphatase 103 units/L (35-129) 08/20/16 08:49 Total Creatine Kinase 52 units/L (30-135) 08/13/16 14:30 NT-Pro-B Natriuret Pep 495.2 pg/mL (0-900) 08/13/16 14:30 Total Protein 6.2 g/dL (6.3-8.2) L 08/20/16 08:49 Albumin 2.3 g/dL (3.9-5) L 08/20/16 08:49 Albumin/Globulin Ratio 0.6 % 08/20/16 08:49 Urine Color Yellow (Yellow) 08/13/16 16:42 Urine Turbidity Cloudy (Clear) 08/13/16 16:42 Urine pH 7.0 (5.0-7.0) 08/13/16 16:42 Ur Specific [place] 1.009 (1.003-1.030) 08/13/16 16:42 Urine Protein 100 mg/dl mg/dL (Negative) 08/13/16 16:42 Urine Glucose (UA) Neg mg/dL (Negative) 08/13/16 16:42 Urine Ketones Neg mg/dL (Negative) 08/13/16 16:42 Urine Blood Mod (Negative) 08/13/16 16:42 Urine Nitrite Neg (Negative) 08/13/16 16:42 Urine Bilirubin Neg (Negative) 08/13/16 16:42 Urine Urobilinogen < 2.0 mg/dL (<2.0) 08/13/16 16:42 Ur Leukocyte Esterase Lg (Negative) 08/13/16 16:42 Urine WBC (Auto) 133.0 /HPF (0.0-6.0) H 08/13/16 16:42 Urine RBC (Auto) 5.0 /HPF (0.0-6.0) 08/13/16 16:42 U Epithel Cells (Auto) 1.0 /HPF (0-13.0) 08/13/16 16:42 Urine Bacteria (Auto) 4+ /HPF (Negative) 08/13/16 16:42 Urine Mucus Few /HPF 08/13/16 16:42 Random Vancomycin 8.6 ug/mL (0-40.0) 08/17/16 06:47 Blood Type B POSITIVE 08/20/16 11:11 Antibody Screen Negative 08/20/16 11:11 Crossmatch See Detail 08/20/16 11:11
[2016-08-27] MEDS: NORCO 5/325 PO PRN (21:22)
[2016-08-28] MEDS: PHOS-NAK PO SCH ×3 (06:20→21:45)
[2016-08-28] MEDS: D5W 1,000 ML IV SCH ×2 (06:21→21:45)
[2016-08-28] MEDS: MAG-OX PO SCH ×2 (11:35→21:45)
[2016-08-28] MEDS: TYLENOL PO PRN (18:38)
[2016-08-28] MEDS: ROCEPHIN/NS 1 GM/50 ML 1 GM/50 ML BAG IV SCH (19:05)
--- NOTE | 2016-08-28 21:32 | Progress Note ---
Assessment and Plan - Patient Problems (1) Sepsis Current Visit: Yes Status: Resolved Qualifiers: Sepsis type: Streptococcus group B Qualified Code(s): A40.1 - Sepsis due to streptococcus, group B Plan to address problem: Sepsis protocol, IV abx, blood cultures, supportive care, (2) Acute UTI (urinary tract infection) Current Visit: Yes Status: Resolved Plan to address problem: IV abx, (3) Acute renal failure Current Visit: Yes Status: Acute Qualifiers: Acute renal failure type: with other specified pathological lesion Qualified Code(s): N17.8 - Other acute kidney failure Plan to address problem: IVF replacement, monitor uop q shift, (4) Encephalopathy acute Current Visit: Yes Status: Acute Plan to address problem: Metabolic: Treat sepsis. supportive care, bed alarm, fall precautions. (5) DVT prophylaxis Current Visit: Yes Status: Acute History Interval history: Pt lying in bed, chronically ill appearing, Pt has episodes of lethargy, No reported nursing events. Poor prognosis. Case management consulted regarding Placement SNF/Hospice. Hospitalist Physical - Constitutional Vitals: Temp Pulse Resp BP Pulse Ox 97.8 F 87 18 132/62 94 08/28/16 21:17 08/28/16 21:17 08/28/16 21:17 08/28/16 21:17 08/28/16 21:17 General appearance: Present: mild distress, cachectic - Neck Neck: Present: supple - Respiratory Respiratory: bilateral: diminished - Cardiovascular Rhythm: regular Heart Sounds: Present: S1 & S2 - Extremities Extremities: no ischemia Peripheral Pulses: within normal limits - Abdominal General gastrointestinal: soft, non-distended - Integumentary Integumentary: Present: clear, dry, decreased turgor - Psychiatric Psychiatric: no intact judgment & insight, no memory intact - Neurologic Neurologic: no gait normal Results - Labs CBC & Chem 7: 08/25/16 07:01 08/27/16 06:34 Labs: Laboratory Last Values WBC 12.6 K/mm3 (4.5-11.0) H 08/25/16 07:01 RBC 3.17 M/mm3 (3.65-5.03) L 08/25/16 07:01 Hgb 8.5 gm/dl (10.1-14.3) L 08/25/16 07:01 Hct 25.9 % (30.3-42.9) L 08/25/16 07:01 MCV 82 fl (79-97) 08/25/16 07:01 MCH 27 pg (28-32) L 08/25/16 07:01 MCHC 33 % (30-34) 08/25/16 07:01 RDW 20.2 % (13.2-15.2) H 08/25/16 07:01 Plt Count 97 K/mm3 (140-440) L 08/25/16 07:01 Lymph % (Auto) 7.9 % (13.4-35.0) L 08/25/16 07:01 [place] % (Auto) 5.5 % (0.0-7.3) 08/25/16 07:01 Eos % (Auto) 0.6 % (0.0-4.3) 08/25/16 07:01 Baso % (Auto) 0.3 % (0.0-1.8) 08/25/16 07:01 Lymph # 1.0 K/mm3 (1.2-5.4) L 08/25/16 07:01 [place] # 0.7 K/mm3 (0.0-0.8) 08/25/16 07:01 Eos # 0.1 K/mm3 (0.0-0.4) 08/25/16 07:01 Baso # 0.0 K/mm3 (0.0-0.1) 08/25/16 07:01 Add Manual Diff Complete 08/19/16 09:43 Total Counted 100 08/19/16 09:43 Seg Neutrophils % 85.7 % (40.0-70.0) H 08/25/16 07:01 Seg Neuts % (Manual) 86.0 % (40.0-70.0) H 08/19/16 09:43 Band Neutrophils % 0 % 08/19/16 09:43 Lymphocytes % (Manual) 14.0 % (13.4-35.0) 08/19/16 09:43 Reactive Lymphs % (Man) 0 % 08/19/16 09:43 Monocytes % (Manual) 0 % (0.0-7.3) 08/19/16 09:43 Eosinophils % (Manual) 0 % (0.0-4.3) 08/19/16 09:43 Basophils % (Manual) 0 % (0.0-1.8) 08/19/16 09:43 Metamyelocytes % 0 % 08/19/16 09:43 Myelocytes % 0 % 08/19/16 09:43 Promyelocytes % 0 % 08/19/16 09:43 Blast Cells % 0 % 08/19/16 09:43 Nucleated RBC % Not Reportable 08/19/16 09:43 Seg Neutrophils # 10.8 K/mm3 (1.8-7.7) H 08/25/16 07:01 Seg Neutrophils # Man 13.3 K/mm3 (1.8-7.7) H 08/19/16 09:43 Band Neutrophils # 0.0 K/mm3 08/19/16 09:43 Lymphocytes # (Manual) 2.2 K/mm3 (1.2-5.4) 08/19/16 09:43 Abs React Lymphs (Man) 0.0 K/mm3 08/19/16 09:43 Monocytes # (Manual) 0.0 K/mm3 (0.0-0.8) 08/19/16 09:43 Eosinophils # (Manual) 0.0 K/mm3 (0.0-0.4) 08/19/16 09:43 Basophils # (Manual) 0.0 K/mm3 (0.0-0.1) 08/19/16 09:43 Metamyelocytes # 0.0 K/mm3 08/19/16 09:43 Myelocytes # 0.0 K/mm3 08/19/16 09:43 Promyelocytes # 0.0 K/mm3 08/19/16 09:43 Blast Cells # 0.0 K/mm3 08/19/16 09:43 Pathologist Review 08/15/16 10:57 WBC Morphology Not Reportable 08/19/16 09:43 Hypersegmented Neuts Not Reportable 08/19/16 09:43 Hyposegmented Neuts Not Reportable 08/19/16 09:43 Hypogranular Neuts Not Reportable 08/19/16 09:43 Smudge Cells Not Reportable 08/19/16 09:43 Toxic Granulation Not Reportable 08/19/16 09:43 Toxic Vacuolation Not Reportable 08/19/16 09:43 Dohle Bodies Not Reportable 08/19/16 09:43 Pelger-Huet Anomaly Not Reportable 08/19/16 09:43 Cel[place] Rods Not Reportable 08/19/16 09:43 Platelet Estimate Cons 08/19/16 09:43 Clumped Platelets Not Reportable 08/19/16 09:43 Plt Clumps, EDTA Not Reportable 08/19/16 09:43 Large Platelets Few 08/19/16 09:43 Giant Platelets Not Reportable 08/19/16 09:43 Platelet Satelliting Not Reportable 08/19/16 09:43 Plt Morphology Comment Not Reportable 08/19/16 09:43 RBC Morphology Not Reportable 08/19/16 09:43 Dimorphic RBCs Not Reportable 08/19/16 09:43 Polychromasia Not Reportable 08/19/16 09:43 Hypochromasia 2+ 08/19/16 09:43 Poikilocytosis Not Reportable 08/19/16 09:43 Anisocytosis 1+ 08/19/16 09:43 Microcytosis Not Reportable 08/19/16 09:43 Macrocytosis Not Reportable 08/19/16 09:43 Spherocytes Not Reportable 08/19/16 09:43 Pappenheimer Bodies Not Reportable 08/19/16 09:43 Sickle Cells Not Reportable 08/19/16 09:43 Target Cells 1+ 08/19/16 09:43 Tear Drop Cells Not Reportable 08/19/16 09:43 Ovalocytes Not Reportable 08/19/16 09:43 Stomatocytes Few 08/17/16 07:25 Helmet Cells Not Reportable 08/19/16 09:43 Villalob[place] Bodies Not Reportable 08/19/16 09:43 [place] Rings Not Reportable 08/19/16 09:43 [place] Cells Not Reportable 08/19/16 09:43 Bite Cells Not Reportable 08/19/16 09:43 Crenated Cell Not Reportable 08/19/16 09:43 Elliptocytes Not Reportable 08/19/16 09:43 Acanthocytes (Spur) Not Reportable 08/19/16 09:43 Rouleaux Not Reportable 08/19/16 09:43 Hemoglobin C Crystals Not Reportable 08/19/16 09:43 Schistocytes Not Reportable 08/19/16 09:43 Malaria parasites Not Reportable 08/19/16 09:43 Isauro Bodies Not Reportable 08/19/16 09:43 Hem Pathologist Commnt No 08/19/16 09:43 PT 15.1 Sec. (12.2-14.9) H 08/21/16 09:11 INR 1.20 (0.87-1.13) H 08/21/16 09:11 Sodium 143 mmol/L (137-145) 08/27/16 06:34 Potassium 4.2 mmol/L (3.6-5.0) 08/27/16 06:34 Chloride 99.9 mmol/L (98-107) 08/27/16 06:34 Carbon Dioxide 32 mmol/L (22-30) H D 08/27/16 06:34 Anion Gap 15 mmol/L 08/27/16 06:34 BUN 19 mg/dL (7-17) H 08/27/16 06:34 Creatinine 0.8 mg/dL (0.7-1.2) 08/27/16 06:34 Estimated GFR > 60 ml/min 08/27/16 06:34 BUN/Creatinine Ratio 23.75 % 08/27/16 06:34 Glucose 110 mg/dL (65-100) H 08/27/16 06:34 POC Glucose 112 (70-105) H 08/28/16 05:41 Lactic Acid 2.5 mmol/L (0.7-2.0) H* 08/15/16 18:00 Calcium 7.3 mg/dL (8.4-10.2) L 08/27/16 06:34 Phosphorus 3.0 mg/dL (2.5-4.5) 08/27/16 06:34 Magnesium 1.6 mg/dL (1.7-2.3) L 08/28/16 06:55 Total Bilirubin 0.4 mg/dL (0.1-1.2) 08/20/16 08:49 AST 20 units/L (5-40) 08/20/16 08:49 ALT 14 units/L (7-56) 08/20/16 08:49 Alkaline Phosphatase 103 units/L (35-129) 08/20/16 08:49 Total Creatine Kinase 52 units/L (30-135) 08/13/16 14:30 NT-Pro-B Natriuret Pep 495.2 pg/mL (0-900) 08/13/16 14:30 Total Protein 6.2 g/dL (6.3-8.2) L 08/20/16 08:49 Albumin 2.3 g/dL (3.9-5) L 08/20/16 08:49 Albumin/Globulin Ratio 0.6 % 08/20/16 08:49 Urine Color Yellow (Yellow) 08/13/16 16:42 Urine Turbidity Cloudy (Clear) 08/13/16 16:42 Urine pH 7.0 (5.0-7.0) 08/13/16 16:42 Ur Specific [place] 1.009 (1.003-1.030) 08/13/16 16:42 Urine Protein 100 mg/dl mg/dL (Negative) 08/13/16 16:42 Urine Glucose (UA) Neg mg/dL (Negative) 08/13/16 16:42 Urine Ketones Neg mg/dL (Negative) 08/13/16 16:42 Urine Blood Mod (Negative) 08/13/16 16:42 Urine Nitrite Neg (Negative) 08/13/16 16:42 Urine Bilirubin Neg (Negative) 08/13/16 16:42 Urine Urobilinogen < 2.0 mg/dL (<2.0) 08/13/16 16:42 Ur Leukocyte Esterase Lg (Negative) 08/13/16 16:42 Urine WBC (Auto) 133.0 /HPF (0.0-6.0) H 08/13/16 16:42 Urine RBC (Auto) 5.0 /HPF (0.0-6.0) 08/13/16 16:42 U Epithel Cells (Auto) 1.0 /HPF (0-13.0) 08/13/16 16:42 Urine Bacteria (Auto) 4+ /HPF (Negative) 08/13/16 16:42 Urine Mucus Few /HPF 08/13/16 16:42 Random Vancomycin 8.6 ug/mL (0-40.0) 08/17/16 06:47 Blood Type B POSITIVE 08/20/16 11:11 Antibody Screen Negative 08/20/16 11:11 Crossmatch See Detail 08/20/16 11:11
[2016-08-29] MEDS: TYLENOL PO PRN (02:24)
[2016-08-29] MEDS: MORPHINE IV PRN (05:21)
[2016-08-29] MEDS: PHOS-NAK PO SCH ×3 (05:21→22:20)
[2016-08-29] MEDS: MAG-OX PO SCH ×2 (10:16→22:20)
[2016-08-29] MEDS: ROCEPHIN/NS 1 GM/50 ML 1 GM/50 ML BAG IV SCH (17:38)
[2016-08-29] MEDS: D5W 1,000 ML IV SCH (23:35)
[2016-08-30] MEDS: PHOS-NAK PO SCH ×3 (06:07→21:43)
--- NOTE | 2016-08-30 07:59 | Progress Note ---
Assessment and Plan - Patient Problems (1) Sepsis Current Visit: Yes Status: Resolved Qualifiers: Sepsis type: Streptococcus group B Qualified Code(s): A40.1 - Sepsis due to streptococcus, group B Plan to address problem: Sepsis protocol, IV abx, blood cultures, supportive care, (2) Acute UTI (urinary tract infection) Current Visit: Yes Status: Resolved Plan to address problem: IV abx, (3) Acute renal failure Current Visit: Yes Status: Acute Qualifiers: Acute renal failure type: with other specified pathological lesion Qualified Code(s): N17.8 - Other acute kidney failure Plan to address problem: IVF replacement, monitor uop q shift, (4) Encephalopathy acute Current Visit: Yes Status: Acute Plan to address problem: Metabolic: Treat sepsis. supportive care, bed alarm, fall precautions. (5) DVT prophylaxis Current Visit: Yes Status: Acute History Interval history: Pt lying in bed, chronically ill appearing, Pt has episodes of lethargy, No reported nursing events. Poor prognosis. Case management consulted regarding Placement SNF/Hospice. Pt medically optimized for discharge. Awaiting placement. Hospitalist Physical - Constitutional Vitals: Temp Pulse Resp BP Pulse Ox 98.1 F 78 16 109/53 96 08/30/16 05:50 08/30/16 05:50 08/30/16 05:50 08/30/16 05:50 08/30/16 05:50 General appearance: Present: mild distress, cachectic - Neck Neck: Present: supple - Respiratory Respiratory: bilateral: diminished - Cardiovascular Rhythm: regular Heart Sounds: Present: S1 & S2 - Extremities Extremities: no ischemia - Abdominal General gastrointestinal: soft, non-tender, non-distended - Integumentary Integumentary: Present: clear, dry - Psychiatric Psychiatric: no intact judgment & insight, no memory intact - Neurologic Neurologic: no gait normal Results - Labs CBC & Chem 7: 08/25/16 07:01 08/27/16 06:34 Labs: Laboratory Last Values WBC 12.6 K/mm3 (4.5-11.0) H 08/25/16 07:01 RBC 3.17 M/mm3 (3.65-5.03) L 08/25/16 07:01 Hgb 8.5 gm/dl (10.1-14.3) L 08/25/16 07:01 Hct 25.9 % (30.3-42.9) L 08/25/16 07:01 MCV 82 fl (79-97) 08/25/16 07:01 MCH 27 pg (28-32) L 08/25/16 07:01 MCHC 33 % (30-34) 08/25/16 07:01 RDW 20.2 % (13.2-15.2) H 08/25/16 07:01 Plt Count 97 K/mm3 (140-440) L 08/25/16 07:01 Lymph % (Auto) 7.9 % (13.4-35.0) L 08/25/16 07:01 [place] % (Auto) 5.5 % (0.0-7.3) 08/25/16 07:01 Eos % (Auto) 0.6 % (0.0-4.3) 08/25/16 07:01 Baso % (Auto) 0.3 % (0.0-1.8) 08/25/16 07:01 Lymph # 1.0 K/mm3 (1.2-5.4) L 08/25/16 07:01 [place] # 0.7 K/mm3 (0.0-0.8) 08/25/16 07:01 Eos # 0.1 K/mm3 (0.0-0.4) 08/25/16 07:01 Baso # 0.0 K/mm3 (0.0-0.1) 08/25/16 07:01 Add Manual Diff Complete 08/19/16 09:43 Total Counted 100 08/19/16 09:43 Seg Neutrophils % 85.7 % (40.0-70.0) H 08/25/16 07:01 Seg Neuts % (Manual) 86.0 % (40.0-70.0) H 08/19/16 09:43 Band Neutrophils % 0 % 08/19/16 09:43 Lymphocytes % (Manual) 14.0 % (13.4-35.0) 08/19/16 09:43 Reactive Lymphs % (Man) 0 % 08/19/16 09:43 Monocytes % (Manual) 0 % (0.0-7.3) 08/19/16 09:43 Eosinophils % (Manual) 0 % (0.0-4.3) 08/19/16 09:43 Basophils % (Manual) 0 % (0.0-1.8) 08/19/16 09:43 Metamyelocytes % 0 % 08/19/16 09:43 Myelocytes % 0 % 08/19/16 09:43 Promyelocytes % 0 % 08/19/16 09:43 Blast Cells % 0 % 08/19/16 09:43 Nucleated RBC % Not Reportable 08/19/16 09:43 Seg Neutrophils # 10.8 K/mm3 (1.8-7.7) H 08/25/16 07:01 Seg Neutrophils # Man 13.3 K/mm3 (1.8-7.7) H 08/19/16 09:43 Band Neutrophils # 0.0 K/mm3 08/19/16 09:43 Lymphocytes # (Manual) 2.2 K/mm3 (1.2-5.4) 08/19/16 09:43 Abs React Lymphs (Man) 0.0 K/mm3 08/19/16 09:43 Monocytes # (Manual) 0.0 K/mm3 (0.0-0.8) 08/19/16 09:43 Eosinophils # (Manual) 0.0 K/mm3 (0.0-0.4) 08/19/16 09:43 Basophils # (Manual) 0.0 K/mm3 (0.0-0.1) 08/19/16 09:43 Metamyelocytes # 0.0 K/mm3 08/19/16 09:43 Myelocytes # 0.0 K/mm3 08/19/16 09:43 Promyelocytes # 0.0 K/mm3 08/19/16 09:43 Blast Cells # 0.0 K/mm3 08/19/16 09:43 Pathologist Review 08/15/16 10:57 WBC Morphology Not Reportable 08/19/16 09:43 Hypersegmented Neuts Not Reportable 08/19/16 09:43 Hyposegmented Neuts Not Reportable 08/19/16 09:43 Hypogranular Neuts Not Reportable 08/19/16 09:43 Smudge Cells Not Reportable 08/19/16 09:43 Toxic Granulation Not Reportable 08/19/16 09:43 Toxic Vacuolation Not Reportable 08/19/16 09:43 Dohle Bodies Not Reportable 08/19/16 09:43 Pelger-Huet Anomaly Not Reportable 08/19/16 09:43 Celestine Rods Not Reportable 08/19/16 09:43 Platelet Estimate Cons 08/19/16 09:43 Clumped Platelets Not Reportable 08/19/16 09:43 Plt Clumps, EDTA Not Reportable 08/19/16 09:43 Large Platelets Few 08/19/16 09:43 Giant Platelets Not Reportable 08/19/16 09:43 Platelet Satelliting Not Reportable 08/19/16 09:43 Plt Morphology Comment Not Reportable 08/19/16 09:43 RBC Morphology Not Reportable 08/19/16 09:43 Dimorphic RBCs Not Reportable 08/19/16 09:43 Polychromasia Not Reportable 08/19/16 09:43 Hypochromasia 2+ 08/19/16 09:43 Poikilocytosis Not Reportable 08/19/16 09:43 Anisocytosis 1+ 08/19/16 09:43 Microcytosis Not Reportable 08/19/16 09:43 Macrocytosis Not Reportable 08/19/16 09:43 Spherocytes Not Reportable 08/19/16 09:43 Pappenheimer Bodies Not Reportable 08/19/16 09:43 Sickle Cells Not Reportable 08/19/16 09:43 Target Cells 1+ 08/19/16 09:43 Tear Drop Cells Not Reportable 08/19/16 09:43 Ovalocytes Not Reportable 08/19/16 09:43 Stomatocytes Few 08/17/16 07:25 Helmet Cells Not Reportable 08/19/16 09:43 [place] Bodies Not Reportable 08/19/16 09:43 [place] Rings Not Reportable 08/19/16 09:43 [place] Cells Not Reportable 08/19/16 09:43 Bite Cells Not Reportable 08/19/16 09:43 Crenated Cell Not Reportable 08/19/16 09:43 Elliptocytes Not Reportable 08/19/16 09:43 Acanthocytes (Spur) Not Reportable 08/19/16 09:43 Rouleaux Not Reportable 08/19/16 09:43 Hemoglobin C Crystals Not Reportable 08/19/16 09:43 Schistocytes Not Reportable 08/19/16 09:43 Malaria parasites Not Reportable 08/19/16 09:43 Isauro Bodies Not Reportable 08/19/16 09:43 Hem Pathologist Commnt No 08/19/16 09:43 PT 15.1 Sec. (12.2-14.9) H 08/21/16 09:11 INR 1.20 (0.87-1.13) H 08/21/16 09:11 Sodium 143 mmol/L (137-145) 08/27/16 06:34 Potassium 4.2 mmol/L (3.6-5.0) 08/27/16 06:34 Chloride 99.9 mmol/L (98-107) 08/27/16 06:34 Carbon Dioxide 32 mmol/L (22-30) H D 08/27/16 06:34 Anion Gap 15 mmol/L 08/27/16 06:34 BUN 19 mg/dL (7-17) H 08/27/16 06:34 Creatinine 0.8 mg/dL (0.7-1.2) 08/27/16 06:34 Estimated GFR > 60 ml/min 08/27/16 06:34 BUN/Creatinine Ratio 23.75 % 08/27/16 06:34 Glucose 110 mg/dL (65-100) H 08/27/16 06:34 POC Glucose 121 (70-105) H 08/30/16 06:21 Lactic Acid 2.5 mmol/L (0.7-2.0) H* 08/15/16 18:00 Calcium 7.3 mg/dL (8.4-10.2) L 08/27/16 06:34 Phosphorus 3.0 mg/dL (2.5-4.5) 08/27/16 06:34 Magnesium 1.6 mg/dL (1.7-2.3) L 08/28/16 06:55 Total Bilirubin 0.4 mg/dL (0.1-1.2) 08/20/16 08:49 AST 20 units/L (5-40) 08/20/16 08:49 ALT 14 units/L (7-56) 08/20/16 08:49 Alkaline Phosphatase 103 units/L (35-129) 08/20/16 08:49 Total Creatine Kinase 52 units/L (30-135) 08/13/16 14:30 NT-Pro-B Natriuret Pep 495.2 pg/mL (0-900) 08/13/16 14:30 Total Protein 6.2 g/dL (6.3-8.2) L 08/20/16 08:49 Albumin 2.3 g/dL (3.9-5) L 08/20/16 08:49 Albumin/Globulin Ratio 0.6 % 08/20/16 08:49 Urine Color Yellow (Yellow) 08/13/16 16:42 Urine Turbidity Cloudy (Clear) 08/13/16 16:42 Urine pH 7.0 (5.0-7.0) 08/13/16 16:42 Ur Specific [place] 1.009 (1.003-1.030) 08/13/16 16:42 Urine Protein 100 mg/dl mg/dL (Negative) 08/13/16 16:42 Urine Glucose (UA) Neg mg/dL (Negative) 08/13/16 16:42 Urine Ketones Neg mg/dL (Negative) 08/13/16 16:42 Urine Blood Mod (Negative) 08/13/16 16:42 Urine Nitrite Neg (Negative) 08/13/16 16:42 Urine Bilirubin Neg (Negative) 08/13/16 16:42 Urine Urobilinogen < 2.0 mg/dL (<2.0) 08/13/16 16:42 Ur Leukocyte Esterase Lg (Negative) 08/13/16 16:42 Urine WBC (Auto) 133.0 /HPF (0.0-6.0) H 08/13/16 16:42 Urine RBC (Auto) 5.0 /HPF (0.0-6.0) 08/13/16 16:42 U Epithel Cells (Auto) 1.0 /HPF (0-13.0) 08/13/16 16:42 Urine Bacteria (Auto) 4+ /HPF (Negative) 08/13/16 16:42 Urine Mucus Few /HPF 08/13/16 16:42 Random Vancomycin 8.6 ug/mL (0-40.0) 08/17/16 06:47 Blood Type B POSITIVE 08/20/16 11:11 Antibody Screen Negative 08/20/16 11:11 Crossmatch See Detail 08/20/16 11:11
[2016-08-30] MEDS: MAG-OX PO SCH ×2 (10:44→21:43)
--- NOTE | 2016-08-30 15:43 | Progress Note ---
Assessment and Plan - Patient Problems (1) Sepsis Current Visit: Yes Status: Resolved Qualifiers: Sepsis type: Streptococcus group B Qualified Code(s): A40.1 - Sepsis due to streptococcus, group B Plan to address problem: Sepsis protocol, IV abx, blood cultures, supportive care, (2) Acute UTI (urinary tract infection) Current Visit: Yes Status: Resolved Plan to address problem: IV abx, (3) Acute renal failure Current Visit: Yes Status: Acute Qualifiers: Acute renal failure type: with other specified pathological lesion Qualified Code(s): N17.8 - Other acute kidney failure Plan to address problem: IVF replacement, monitor uop q shift, (4) Encephalopathy acute Current Visit: Yes Status: Acute Plan to address problem: Metabolic: Treat sepsis. supportive care, bed alarm, fall precautions. (5) DVT prophylaxis Current Visit: Yes Status: Acute History Interval history: Pt lying in bed, chronically ill appearing, Pt has episodes of lethargy, No reported nursing events. Poor prognosis. Case management consulted regarding Placement SNF/Hospice. Pt medically optimized for discharge. Awaiting placement. Hospitalist Physical - Constitutional Vitals: Temp Pulse Resp BP Pulse Ox 97.8 F 90 20 128/59 98 08/30/16 09:30 08/30/16 09:30 08/30/16 12:53 08/30/16 09:30 08/30/16 09:30 General appearance: Present: mild distress, cachectic - Neck Neck: Present: supple - Respiratory Respiratory: bilateral: diminished - Cardiovascular Rhythm: regular Heart Sounds: Present: S1 & S2 - Extremities Extremities: no ischemia Peripheral Pulses: within normal limits - Abdominal General gastrointestinal: soft, non-tender, non-distended - Integumentary Integumentary: Present: clear, dry - Psychiatric Psychiatric: no intact judgment & insight, no memory intact - Neurologic Neurologic: CNII-XII intact Results - Labs CBC & Chem 7: 08/25/16 07:01 08/27/16 06:34 Labs: Laboratory Last Values WBC 12.6 K/mm3 (4.5-11.0) H 08/25/16 07:01 RBC 3.17 M/mm3 (3.65-5.03) L 08/25/16 07:01 Hgb 8.5 gm/dl (10.1-14.3) L 08/25/16 07:01 Hct 25.9 % (30.3-42.9) L 08/25/16 07:01 MCV 82 fl (79-97) 08/25/16 07:01 MCH 27 pg (28-32) L 08/25/16 07:01 MCHC 33 % (30-34) 08/25/16 07:01 RDW 20.2 % (13.2-15.2) H 08/25/16 07:01 Plt Count 97 K/mm3 (140-440) L 08/25/16 07:01 Lymph % (Auto) 7.9 % (13.4-35.0) L 08/25/16 07:01 [place] % (Auto) 5.5 % (0.0-7.3) 08/25/16 07:01 Eos % (Auto) 0.6 % (0.0-4.3) 08/25/16 07:01 Baso % (Auto) 0.3 % (0.0-1.8) 08/25/16 07:01 Lymph # 1.0 K/mm3 (1.2-5.4) L 08/25/16 07:01 [place] # 0.7 K/mm3 (0.0-0.8) 08/25/16 07:01 Eos # 0.1 K/mm3 (0.0-0.4) 08/25/16 07:01 Baso # 0.0 K/mm3 (0.0-0.1) 08/25/16 07:01 Add Manual Diff Complete 08/19/16 09:43 Total Counted 100 08/19/16 09:43 Seg Neutrophils % 85.7 % (40.0-70.0) H 08/25/16 07:01 Seg Neuts % (Manual) 86.0 % (40.0-70.0) H 08/19/16 09:43 Band Neutrophils % 0 % 08/19/16 09:43 Lymphocytes % (Manual) 14.0 % (13.4-35.0) 08/19/16 09:43 Reactive Lymphs % (Man) 0 % 08/19/16 09:43 Monocytes % (Manual) 0 % (0.0-7.3) 08/19/16 09:43 Eosinophils % (Manual) 0 % (0.0-4.3) 08/19/16 09:43 Basophils % (Manual) 0 % (0.0-1.8) 08/19/16 09:43 Metamyelocytes % 0 % 08/19/16 09:43 Myelocytes % 0 % 08/19/16 09:43 Promyelocytes % 0 % 08/19/16 09:43 Blast Cells % 0 % 08/19/16 09:43 Nucleated RBC % Not Reportable 08/19/16 09:43 Seg Neutrophils # 10.8 K/mm3 (1.8-7.7) H 08/25/16 07:01 Seg Neutrophils # Man 13.3 K/mm3 (1.8-7.7) H 08/19/16 09:43 Band Neutrophils # 0.0 K/mm3 08/19/16 09:43 Lymphocytes # (Manual) 2.2 K/mm3 (1.2-5.4) 08/19/16 09:43 Abs React Lymphs (Man) 0.0 K/mm3 08/19/16 09:43 Monocytes # (Manual) 0.0 K/mm3 (0.0-0.8) 08/19/16 09:43 Eosinophils # (Manual) 0.0 K/mm3 (0.0-0.4) 08/19/16 09:43 Basophils # (Manual) 0.0 K/mm3 (0.0-0.1) 08/19/16 09:43 Metamyelocytes # 0.0 K/mm3 08/19/16 09:43 Myelocytes # 0.0 K/mm3 08/19/16 09:43 Promyelocytes # 0.0 K/mm3 08/19/16 09:43 Blast Cells # 0.0 K/mm3 08/19/16 09:43 Pathologist Review 08/15/16 10:57 WBC Morphology Not Reportable 08/19/16 09:43 Hypersegmented Neuts Not Reportable 08/19/16 09:43 Hyposegmented Neuts Not Reportable 08/19/16 09:43 Hypogranular Neuts Not Reportable 08/19/16 09:43 Smudge Cells Not Reportable 08/19/16 09:43 Toxic Granulation Not Reportable 08/19/16 09:43 Toxic Vacuolation Not Reportable 08/19/16 09:43 Dohle Bodies Not Reportable 08/19/16 09:43 Pelger-Huet Anomaly Not Reportable 08/19/16 09:43 Celestine Rods Not Reportable 08/19/16 09:43 Platelet Estimate Cons 08/19/16 09:43 Clumped Platelets Not Reportable 08/19/16 09:43 Plt Clumps, EDTA Not Reportable 08/19/16 09:43 Large Platelets Few 08/19/16 09:43 Giant Platelets Not Reportable 08/19/16 09:43 Platelet Satelliting Not Reportable 08/19/16 09:43 Plt Morphology Comment Not Reportable 08/19/16 09:43 RBC Morphology Not Reportable 08/19/16 09:43 Dimorphic RBCs Not Reportable 08/19/16 09:43 Polychromasia Not Reportable 08/19/16 09:43 Hypochromasia 2+ 08/19/16 09:43 Poikilocytosis Not Reportable 08/19/16 09:43 Anisocytosis 1+ 08/19/16 09:43 Microcytosis Not Reportable 08/19/16 09:43 Macrocytosis Not Reportable 08/19/16 09:43 Spherocytes Not Reportable 08/19/16 09:43 Pappenheimer Bodies Not Reportable 08/19/16 09:43 Sickle Cells Not Reportable 08/19/16 09:43 Target Cells 1+ 08/19/16 09:43 Tear Drop Cells Not Reportable 08/19/16 09:43 Ovalocytes Not Reportable 08/19/16 09:43 Stomatocytes Few 08/17/16 07:25 Helmet Cells Not Reportable 08/19/16 09:43 Villal[place] Bodies Not Reportable 08/19/16 09:43 [place] Rings Not Reportable 08/19/16 09:43 [place] Cells Not Reportable 08/19/16 09:43 Bite Cells Not Reportable 08/19/16 09:43 Crenated Cell Not Reportable 08/19/16 09:43 Elliptocytes Not Reportable 08/19/16 09:43 Acanthocytes (Spur) Not Reportable 08/19/16 09:43 Rouleaux Not Reportable 08/19/16 09:43 Hemoglobin C Crystals Not Reportable 08/19/16 09:43 Schistocytes Not Reportable 08/19/16 09:43 Malaria parasites Not Reportable 08/19/16 09:43 Isauro Bodies Not Reportable 08/19/16 09:43 Hem Pathologist Commnt No 08/19/16 09:43 PT 15.1 Sec. (12.2-14.9) H 08/21/16 09:11 INR 1.20 (0.87-1.13) H 08/21/16 09:11 Sodium 143 mmol/L (137-145) 08/27/16 06:34 Potassium 4.2 mmol/L (3.6-5.0) 08/27/16 06:34 Chloride 99.9 mmol/L (98-107) 08/27/16 06:34 Carbon Dioxide 32 mmol/L (22-30) H D 08/27/16 06:34 Anion Gap 15 mmol/L 08/27/16 06:34 BUN 19 mg/dL (7-17) H 08/27/16 06:34 Creatinine 0.8 mg/dL (0.7-1.2) 08/27/16 06:34 Estimated GFR > 60 ml/min 08/27/16 06:34 BUN/Creatinine Ratio 23.75 % 08/27/16 06:34 Glucose 110 mg/dL (65-100) H 08/27/16 06:34 POC Glucose 121 (70-105) H 08/30/16 06:21 Lactic Acid 2.5 mmol/L (0.7-2.0) H* 08/15/16 18:00 Calcium 7.3 mg/dL (8.4-10.2) L 08/27/16 06:34 Phosphorus 3.0 mg/dL (2.5-4.5) 08/27/16 06:34 Magnesium 1.6 mg/dL (1.7-2.3) L 08/28/16 06:55 Total Bilirubin 0.4 mg/dL (0.1-1.2) 08/20/16 08:49 AST 20 units/L (5-40) 08/20/16 08:49 ALT 14 units/L (7-56) 08/20/16 08:49 Alkaline Phosphatase 103 units/L (35-129) 08/20/16 08:49 Total Creatine Kinase 52 units/L (30-135) 08/13/16 14:30 NT-Pro-B Natriuret Pep 495.2 pg/mL (0-900) 08/13/16 14:30 Total Protein 6.2 g/dL (6.3-8.2) L 08/20/16 08:49 Albumin 2.3 g/dL (3.9-5) L 08/20/16 08:49 Albumin/Globulin Ratio 0.6 % 08/20/16 08:49 Urine Color Yellow (Yellow) 08/13/16 16:42 Urine Turbidity Cloudy (Clear) 08/13/16 16:42 Urine pH 7.0 (5.0-7.0) 08/13/16 16:42 Ur Specific [place] 1.009 (1.003-1.030) 08/13/16 16:42 Urine Protein 100 mg/dl mg/dL (Negative) 08/13/16 16:42 Urine Glucose (UA) Neg mg/dL (Negative) 08/13/16 16:42 Urine Ketones Neg mg/dL (Negative) 08/13/16 16:42 Urine Blood Mod (Negative) 08/13/16 16:42 Urine Nitrite Neg (Negative) 08/13/16 16:42 Urine Bilirubin Neg (Negative) 08/13/16 16:42 Urine Urobilinogen < 2.0 mg/dL (<2.0) 08/13/16 16:42 Ur Leukocyte Esterase Lg (Negative) 08/13/16 16:42 Urine WBC (Auto) 133.0 /HPF (0.0-6.0) H 08/13/16 16:42 Urine RBC (Auto) 5.0 /HPF (0.0-6.0) 08/13/16 16:42 U Epithel Cells (Auto) 1.0 /HPF (0-13.0) 08/13/16 16:42 Urine Bacteria (Auto) 4+ /HPF (Negative) 08/13/16 16:42 Urine Mucus Few /HPF 08/13/16 16:42 Random Vancomycin 8.6 ug/mL (0-40.0) 08/17/16 06:47 Blood Type B POSITIVE 08/20/16 11:11 Antibody Screen Negative 08/20/16 11:11 Crossmatch See Detail 08/20/16 11:11
[2016-08-30] MEDS: D5W 1,000 ML IV SCH (16:41)
[2016-08-30] MEDS: ROCEPHIN/NS 1 GM/50 ML 1 GM/50 ML BAG IV SCH (16:42)
[2016-08-31] MEDS: PHOS-NAK PO SCH ×3 (05:43→21:51)
[2016-08-31] MEDS: D5W 1,000 ML IV SCH (05:45)
[2016-08-31] MEDS: MAG-OX PO SCH ×2 (11:34→21:51)
[2016-08-31] MEDS: ROCEPHIN/NS 1 GM/50 ML 1 GM/50 ML BAG IV SCH (16:07)
--- NOTE | 2016-08-31 17:56 | Progress Note ---
Assessment and Plan - Patient Problems (1) Sepsis Current Visit: Yes Status: Resolved Qualifiers: Sepsis type: Streptococcus group B Qualified Code(s): A40.1 - Sepsis due to streptococcus, group B Plan to address problem: Sepsis protocol, IV abx, blood cultures, supportive care, (2) Acute UTI (urinary tract infection) Current Visit: Yes Status: Resolved Plan to address problem: IV abx, (3) Acute renal failure Current Visit: Yes Status: Acute Qualifiers: Acute renal failure type: with other specified pathological lesion Qualified Code(s): N17.8 - Other acute kidney failure Plan to address problem: IVF replacement, monitor uop q shift, (4) Encephalopathy acute Current Visit: Yes Status: Acute Plan to address problem: Metabolic: Treat sepsis. supportive care, bed alarm, fall precautions. (5) DVT prophylaxis Current Visit: Yes Status: Acute History Interval history: Pt lying in bed, chronically ill appearing, Pt has episodes of lethargy, No reported nursing events. Poor prognosis. Case management consulted regarding Placement SNF/Hospice. Pt medically optimized for discharge. Awaiting placement. Hospitalist Physical - Constitutional Vitals: Temp Pulse Resp BP Pulse Ox 98.4 F 88 20 129/60 99 08/31/16 16:15 08/31/16 16:15 08/31/16 16:15 08/31/16 16:15 08/31/16 16:15 General appearance: Present: mild distress, cachectic - EENT Eyes: Present: PERRL ENT: hearing intact - Neck Neck: Present: supple - Respiratory Respiratory: bilateral: diminished - Cardiovascular Rhythm: regular Heart Sounds: Present: S1 & S2 - Extremities Extremities: no ischemia Peripheral Pulses: within normal limits - Abdominal General gastrointestinal: soft, non-tender, non-distended - Integumentary Integumentary: Present: clear, dry - Psychiatric Psychiatric: no intact judgment & insight, no memory intact - Neurologic Neurologic: no gait normal Results - Labs CBC & Chem 7: 08/25/16 07:01 08/27/16 06:34 Labs: Laboratory Last Values WBC 12.6 K/mm3 (4.5-11.0) H 08/25/16 07:01 RBC 3.17 M/mm3 (3.65-5.03) L 08/25/16 07:01 Hgb 8.5 gm/dl (10.1-14.3) L 08/25/16 07:01 Hct 25.9 % (30.3-42.9) L 08/25/16 07:01 MCV 82 fl (79-97) 08/25/16 07:01 MCH 27 pg (28-32) L 08/25/16 07:01 MCHC 33 % (30-34) 08/25/16 07:01 RDW 20.2 % (13.2-15.2) H 08/25/16 07:01 Plt Count 97 K/mm3 (140-440) L 08/25/16 07:01 Lymph % (Auto) 7.9 % (13.4-35.0) L 08/25/16 07:01 [place] % (Auto) 5.5 % (0.0-7.3) 08/25/16 07:01 Eos % (Auto) 0.6 % (0.0-4.3) 08/25/16 07:01 Baso % (Auto) 0.3 % (0.0-1.8) 08/25/16 07:01 Lymph # 1.0 K/mm3 (1.2-5.4) L 08/25/16 07:01 [place] # 0.7 K/mm3 (0.0-0.8) 08/25/16 07:01 Eos # 0.1 K/mm3 (0.0-0.4) 08/25/16 07:01 Baso # 0.0 K/mm3 (0.0-0.1) 08/25/16 07:01 Add Manual Diff Complete 08/19/16 09:43 Total Counted 100 08/19/16 09:43 Seg Neutrophils % 85.7 % (40.0-70.0) H 08/25/16 07:01 Seg Neuts % (Manual) 86.0 % (40.0-70.0) H 08/19/16 09:43 Band Neutrophils % 0 % 08/19/16 09:43 Lymphocytes % (Manual) 14.0 % (13.4-35.0) 08/19/16 09:43 Reactive Lymphs % (Man) 0 % 08/19/16 09:43 Monocytes % (Manual) 0 % (0.0-7.3) 08/19/16 09:43 Eosinophils % (Manual) 0 % (0.0-4.3) 08/19/16 09:43 Basophils % (Manual) 0 % (0.0-1.8) 08/19/16 09:43 Metamyelocytes % 0 % 08/19/16 09:43 Myelocytes % 0 % 08/19/16 09:43 Promyelocytes % 0 % 08/19/16 09:43 Blast Cells % 0 % 08/19/16 09:43 Nucleated RBC % Not Reportable 08/19/16 09:43 Seg Neutrophils # 10.8 K/mm3 (1.8-7.7) H 08/25/16 07:01 Seg Neutrophils # Man 13.3 K/mm3 (1.8-7.7) H 08/19/16 09:43 Band Neutrophils # 0.0 K/mm3 08/19/16 09:43 Lymphocytes # (Manual) 2.2 K/mm3 (1.2-5.4) 08/19/16 09:43 Abs React Lymphs (Man) 0.0 K/mm3 08/19/16 09:43 Monocytes # (Manual) 0.0 K/mm3 (0.0-0.8) 08/19/16 09:43 Eosinophils # (Manual) 0.0 K/mm3 (0.0-0.4) 08/19/16 09:43 Basophils # (Manual) 0.0 K/mm3 (0.0-0.1) 08/19/16 09:43 Metamyelocytes # 0.0 K/mm3 08/19/16 09:43 Myelocytes # 0.0 K/mm3 08/19/16 09:43 Promyelocytes # 0.0 K/mm3 08/19/16 09:43 Blast Cells # 0.0 K/mm3 08/19/16 09:43 Pathologist Review 08/15/16 10:57 WBC Morphology Not Reportable 08/19/16 09:43 Hypersegmented Neuts Not Reportable 08/19/16 09:43 Hyposegmented Neuts Not Reportable 08/19/16 09:43 Hypogranular Neuts Not Reportable 08/19/16 09:43 Smudge Cells Not Reportable 08/19/16 09:43 Toxic Granulation Not Reportable 08/19/16 09:43 Toxic Vacuolation Not Reportable 08/19/16 09:43 Dohle Bodies Not Reportable 08/19/16 09:43 Pelger-Huet Anomaly Not Reportable 08/19/16 09:43 Celestine Rods Not Reportable 08/19/16 09:43 Platelet Estimate Cons 08/19/16 09:43 Clumped Platelets Not Reportable 08/19/16 09:43 Plt Clumps, EDTA Not Reportable 08/19/16 09:43 Large Platelets Few 08/19/16 09:43 Giant Platelets Not Reportable 08/19/16 09:43 Platelet Satelliting Not Reportable 08/19/16 09:43 Plt Morphology Comment Not Reportable 08/19/16 09:43 RBC Morphology Not Reportable 08/19/16 09:43 Dimorphic RBCs Not Reportable 08/19/16 09:43 Polychromasia Not Reportable 08/19/16 09:43 Hypochromasia 2+ 08/19/16 09:43 Poikilocytosis Not Reportable 08/19/16 09:43 Anisocytosis 1+ 08/19/16 09:43 Microcytosis Not Reportable 08/19/16 09:43 Macrocytosis Not Reportable 08/19/16 09:43 Spherocytes Not Reportable 08/19/16 09:43 Pappenheimer Bodies Not Reportable 08/19/16 09:43 Sickle Cells Not Reportable 08/19/16 09:43 Target Cells 1+ 08/19/16 09:43 Tear Drop Cells Not Reportable 08/19/16 09:43 Ovalocytes Not Reportable 08/19/16 09:43 Stomatocytes Few 08/17/16 07:25 Helmet Cells Not Reportable 08/19/16 09:43 [place] Bodies Not Reportable 08/19/16 09:43 [place] Rings Not Reportable 08/19/16 09:43 Shanel Cells Not Reportable 08/19/16 09:43 Bite Cells Not Reportable 08/19/16 09:43 Crenated Cell Not Reportable 08/19/16 09:43 Elliptocytes Not Reportable 08/19/16 09:43 Acanthocytes (Spur) Not Reportable 08/19/16 09:43 Rouleaux Not Reportable 08/19/16 09:43 Hemoglobin C Crystals Not Reportable 08/19/16 09:43 Schistocytes Not Reportable 08/19/16 09:43 Malaria parasites Not Reportable 08/19/16 09:43 Isauro Bodies Not Reportable 08/19/16 09:43 Hem Pathologist Commnt No 08/19/16 09:43 PT 15.1 Sec. (12.2-14.9) H 08/21/16 09:11 INR 1.20 (0.87-1.13) H 08/21/16 09:11 Sodium 143 mmol/L (137-145) 08/27/16 06:34 Potassium 4.2 mmol/L (3.6-5.0) 08/27/16 06:34 Chloride 99.9 mmol/L (98-107) 08/27/16 06:34 Carbon Dioxide 32 mmol/L (22-30) H D 08/27/16 06:34 Anion Gap 15 mmol/L 08/27/16 06:34 BUN 19 mg/dL (7-17) H 08/27/16 06:34 Creatinine 0.8 mg/dL (0.7-1.2) 08/27/16 06:34 Estimated GFR > 60 ml/min 08/27/16 06:34 BUN/Creatinine Ratio 23.75 % 08/27/16 06:34 Glucose 110 mg/dL (65-100) H 08/27/16 06:34 POC Glucose 222 (70-105) H 08/31/16 12:32 Lactic Acid 2.5 mmol/L (0.7-2.0) H* 08/15/16 18:00 Calcium 7.3 mg/dL (8.4-10.2) L 08/27/16 06:34 Phosphorus 3.0 mg/dL (2.5-4.5) 08/27/16 06:34 Magnesium 1.6 mg/dL (1.7-2.3) L 08/28/16 06:55 Total Bilirubin 0.4 mg/dL (0.1-1.2) 08/20/16 08:49 AST 20 units/L (5-40) 08/20/16 08:49 ALT 14 units/L (7-56) 08/20/16 08:49 Alkaline Phosphatase 103 units/L (35-129) 08/20/16 08:49 Total Creatine Kinase 52 units/L (30-135) 08/13/16 14:30 NT-Pro-B Natriuret Pep 495.2 pg/mL (0-900) 08/13/16 14:30 Total Protein 6.2 g/dL (6.3-8.2) L 08/20/16 08:49 Albumin 2.3 g/dL (3.9-5) L 08/20/16 08:49 Albumin/Globulin Ratio 0.6 % 08/20/16 08:49 Urine Color Yellow (Yellow) 08/13/16 16:42 Urine Turbidity Cloudy (Clear) 08/13/16 16:42 Urine pH 7.0 (5.0-7.0) 08/13/16 16:42 Ur Specific [place] 1.009 (1.003-1.030) 08/13/16 16:42 Urine Protein 100 mg/dl mg/dL (Negative) 08/13/16 16:42 Urine Glucose (UA) Neg mg/dL (Negative) 08/13/16 16:42 Urine Ketones Neg mg/dL (Negative) 08/13/16 16:42 Urine Blood Mod (Negative) 08/13/16 16:42 Urine Nitrite Neg (Negative) 08/13/16 16:42 Urine Bilirubin Neg (Negative) 08/13/16 16:42 Urine Urobilinogen < 2.0 mg/dL (<2.0) 08/13/16 16:42 Ur Leukocyte Esterase Lg (Negative) 08/13/16 16:42 Urine WBC (Auto) 133.0 /HPF (0.0-6.0) H 08/13/16 16:42 Urine RBC (Auto) 5.0 /HPF (0.0-6.0) 08/13/16 16:42 U Epithel Cells (Auto) 1.0 /HPF (0-13.0) 08/13/16 16:42 Urine Bacteria (Auto) 4+ /HPF (Negative) 08/13/16 16:42 Urine Mucus Few /HPF 08/13/16 16:42 Random Vancomycin 8.6 ug/mL (0-40.0) 08/17/16 06:47 Blood Type B POSITIVE 08/20/16 11:11 Antibody Screen Negative 08/20/16 11:11 Crossmatch See Detail 08/20/16 11:11
[2016-09-01] MEDS: D5W 1,000 ML IV SCH ×2 (05:54→22:13)
[2016-09-01] MEDS: PHOS-NAK PO SCH ×3 (05:54→22:12)
[2016-09-01] MEDS: MAG-OX PO SCH ×2 (11:24→22:12)
[2016-09-01] MEDS: NORCO 5/325 PO PRN (15:15)
--- NOTE | 2016-09-01 17:58 | Progress Note ---
Assessment and Plan Assessment and plan: Severe Sepsis secondary to beta hemolytic streptococci -Managed according to sepsis protocol, IV ceftriaxone, IV fluids - will D/C the ceftriaxone Acute kidney failure - Nephrology is consulted - IV fluid adjusted - Improving Hypernatremia - On D5 W - improved - patient is on tube feeding now, no nausea or vomiting, she tolerated her diet Acute metabolic encephalopathy - Supportive care - improved Severe anemia - transfused 2 units of blood - Hemoglobin is stable Severe Hypokalemia - repleted - Will check potassium Abdominal pain, thrombocytopenia -CT abdomen showed no abdominal bleeding - Will monitor Hypoglycemia - the cause is unknown - D/C SSI - Continue with dextrose Prophylaxis - Heparin CODE STATUS - FULL, discussed with her next of kin and wanted everything to be done for her. History Interval history: Patient was seen and evaluated, she was alert. She said she is feeling good. Hospitalist Physical - Physical exam Narrative exam: Not in cardiopulmonary distress. Patient is alert Cachectic patient lying on the bed Vital signs as documented. Head exam is unremarkable. No scleral icterus . Neck is without jugular venous distension, thyromegaly, or carotid bruits. Lungs are clear to auscultation. Cardiac exam reveals regular rate and Rhythm. First and second heart sounds normal. No murmurs, rubs or gallops. Abdominal examPEG in place. Extremities no edema. COMPLIANCE MGR: Patient is alert . - Constitutional Vitals: Temp Pulse Resp BP Pulse Ox 98.2 F 69 20 104/57 100 09/01/16 15:17 09/01/16 15:17 09/01/16 15:17 09/01/16 15:17 09/01/16 15:17 General appearance: Present: mild distress, cachectic Results - Labs CBC & Chem 7: 08/25/16 07:01 08/27/16 06:34 Labs: Laboratory Last Values WBC 12.6 K/mm3 (4.5-11.0) H 08/25/16 07:01 RBC 3.17 M/mm3 (3.65-5.03) L 08/25/16 07:01 Hgb 8.5 gm/dl (10.1-14.3) L 08/25/16 07:01 Hct 25.9 % (30.3-42.9) L 08/25/16 07:01 MCV 82 fl (79-97) 08/25/16 07:01 MCH 27 pg (28-32) L 08/25/16 07:01 MCHC 33 % (30-34) 08/25/16 07:01 RDW 20.2 % (13.2-15.2) H 08/25/16 07:01 Plt Count 97 K/mm3 (140-440) L 08/25/16 07:01 Lymph % (Auto) 7.9 % (13.4-35.0) L 08/25/16 07:01 [place] % (Auto) 5.5 % (0.0-7.3) 08/25/16 07:01 Eos % (Auto) 0.6 % (0.0-4.3) 08/25/16 07:01 Baso % (Auto) 0.3 % (0.0-1.8) 08/25/16 07:01 Lymph # 1.0 K/mm3 (1.2-5.4) L 08/25/16 07:01 [place] # 0.7 K/mm3 (0.0-0.8) 08/25/16 07:01 Eos # 0.1 K/mm3 (0.0-0.4) 08/25/16 07:01 Baso # 0.0 K/mm3 (0.0-0.1) 08/25/16 07:01 Add Manual Diff Complete 08/19/16 09:43 Total Counted 100 08/19/16 09:43 Seg Neutrophils % 85.7 % (40.0-70.0) H 08/25/16 07:01 Seg Neuts % (Manual) 86.0 % (40.0-70.0) H 08/19/16 09:43 Band Neutrophils % 0 % 08/19/16 09:43 Lymphocytes % (Manual) 14.0 % (13.4-35.0) 08/19/16 09:43 Reactive Lymphs % (Man) 0 % 08/19/16 09:43 Monocytes % (Manual) 0 % (0.0-7.3) 08/19/16 09:43 Eosinophils % (Manual) 0 % (0.0-4.3) 08/19/16 09:43 Basophils % (Manual) 0 % (0.0-1.8) 08/19/16 09:43 Metamyelocytes % 0 % 08/19/16 09:43 Myelocytes % 0 % 08/19/16 09:43 Promyelocytes % 0 % 08/19/16 09:43 Blast Cells % 0 % 08/19/16 09:43 Nucleated RBC % Not Reportable 08/19/16 09:43 Seg Neutrophils # 10.8 K/mm3 (1.8-7.7) H 08/25/16 07:01 Seg Neutrophils # Man 13.3 K/mm3 (1.8-7.7) H 08/19/16 09:43 Band Neutrophils # 0.0 K/mm3 08/19/16 09:43 Lymphocytes # (Manual) 2.2 K/mm3 (1.2-5.4) 08/19/16 09:43 Abs React Lymphs (Man) 0.0 K/mm3 08/19/16 09:43 Monocytes # (Manual) 0.0 K/mm3 (0.0-0.8) 08/19/16 09:43 Eosinophils # (Manual) 0.0 K/mm3 (0.0-0.4) 08/19/16 09:43 Basophils # (Manual) 0.0 K/mm3 (0.0-0.1) 08/19/16 09:43 Metamyelocytes # 0.0 K/mm3 08/19/16 09:43 Myelocytes # 0.0 K/mm3 08/19/16 09:43 Promyelocytes # 0.0 K/mm3 08/19/16 09:43 Blast Cells # 0.0 K/mm3 08/19/16 09:43 Pathologist Review 08/15/16 10:57 WBC Morphology Not Reportable 08/19/16 09:43 Hypersegmented Neuts Not Reportable 08/19/16 09:43 Hyposegmented Neuts Not Reportable 08/19/16 09:43 Hypogranular Neuts Not Reportable 08/19/16 09:43 Smudge Cells Not Reportable 08/19/16 09:43 Toxic Granulation Not Reportable 08/19/16 09:43 Toxic Vacuolation Not Reportable 08/19/16 09:43 Dohle Bodies Not Reportable 08/19/16 09:43 Pelger-Huet Anomaly Not Reportable 08/19/16 09:43 Celestine Rods Not Reportable 08/19/16 09:43 Platelet Estimate Cons 08/19/16 09:43 Clumped Platelets Not Reportable 08/19/16 09:43 Plt Clumps, EDTA Not Reportable 08/19/16 09:43 Large Platelets Few 08/19/16 09:43 Giant Platelets Not Reportable 08/19/16 09:43 Platelet Satelliting Not Reportable 08/19/16 09:43 Plt Morphology Comment Not Reportable 08/19/16 09:43 RBC Morphology Not Reportable 08/19/16 09:43 Dimorphic RBCs Not Reportable 08/19/16 09:43 Polychromasia Not Reportable 08/19/16 09:43 Hypochromasia 2+ 08/19/16 09:43 Poikilocytosis Not Reportable 08/19/16 09:43 Anisocytosis 1+ 08/19/16 09:43 Microcytosis Not Reportable 08/19/16 09:43 Macrocytosis Not Reportable 08/19/16 09:43 Spherocytes Not Reportable 08/19/16 09:43 Pappenheimer Bodies Not Reportable 08/19/16 09:43 Sickle Cells Not Reportable 08/19/16 09:43 Target Cells 1+ 08/19/16 09:43 Tear Drop Cells Not Reportable 08/19/16 09:43 Ovalocytes Not Reportable 08/19/16 09:43 Stomatocytes Few 08/17/16 07:25 Helmet Cells Not Reportable 08/19/16 09:43 [place] Bodies Not Reportable 08/19/16 09:43 [place] Rings Not Reportable 08/19/16 09:43 Shanel Cells Not Reportable 08/19/16 09:43 Bite Cells Not Reportable 08/19/16 09:43 Crenated Cell Not Reportable 08/19/16 09:43 Elliptocytes Not Reportable 08/19/16 09:43 Acanthocytes (Spur) Not Reportable 08/19/16 09:43 Rouleaux Not Reportable 08/19/16 09:43 Hemoglobin C Crystals Not Reportable 08/19/16 09:43 Schistocytes Not Reportable 08/19/16 09:43 Malaria parasites Not Reportable 08/19/16 09:43 Isauro Bodies Not Reportable 08/19/16 09:43 Hem Pathologist Commnt No 08/19/16 09:43 PT 15.1 Sec. (12.2-14.9) H 08/21/16 09:11 INR 1.20 (0.87-1.13) H 08/21/16 09:11 Sodium 143 mmol/L (137-145) 08/27/16 06:34 Potassium 4.2 mmol/L (3.6-5.0) 08/27/16 06:34 Chloride 99.9 mmol/L (98-107) 08/27/16 06:34 Carbon Dioxide 32 mmol/L (22-30) H D 08/27/16 06:34 Anion Gap 15 mmol/L 08/27/16 06:34 BUN 19 mg/dL (7-17) H 08/27/16 06:34 Creatinine 0.8 mg/dL (0.7-1.2) 08/27/16 06:34 Estimated GFR > 60 ml/min 08/27/16 06:34 BUN/Creatinine Ratio 23.75 % 08/27/16 06:34 Glucose 110 mg/dL (65-100) H 08/27/16 06:34 POC Glucose 152 (70-105) H 09/01/16 17:46 Lactic Acid 2.5 mmol/L (0.7-2.0) H* 08/15/16 18:00 Calcium 7.3 mg/dL (8.4-10.2) L 08/27/16 06:34 Phosphorus 3.0 mg/dL (2.5-4.5) 08/27/16 06:34 Magnesium 1.6 mg/dL (1.7-2.3) L 08/28/16 06:55 Total Bilirubin 0.4 mg/dL (0.1-1.2) 08/20/16 08:49 AST 20 units/L (5-40) 08/20/16 08:49 ALT 14 units/L (7-56) 08/20/16 08:49 Alkaline Phosphatase 103 units/L (35-129) 08/20/16 08:49 Total Creatine Kinase 52 units/L (30-135) 08/13/16 14:30 NT-Pro-B Natriuret Pep 495.2 pg/mL (0-900) 08/13/16 14:30 Total Protein 6.2 g/dL (6.3-8.2) L 08/20/16 08:49 Albumin 2.3 g/dL (3.9-5) L 08/20/16 08:49 Albumin/Globulin Ratio 0.6 % 08/20/16 08:49 Urine Color Yellow (Yellow) 08/13/16 16:42 Urine Turbidity Cloudy (Clear) 08/13/16 16:42 Urine pH 7.0 (5.0-7.0) 08/13/16 16:42 Ur Specific [place] 1.009 (1.003-1.030) 08/13/16 16:42 Urine Protein 100 mg/dl mg/dL (Negative) 08/13/16 16:42 Urine Glucose (UA) Neg mg/dL (Negative) 08/13/16 16:42 Urine Ketones Neg mg/dL (Negative) 08/13/16 16:42 Urine Blood Mod (Negative) 08/13/16 16:42 Urine Nitrite Neg (Negative) 08/13/16 16:42 Urine Bilirubin Neg (Negative) 08/13/16 16:42 Urine Urobilinogen < 2.0 mg/dL (<2.0) 08/13/16 16:42 Ur Leukocyte Esterase Lg (Negative) 08/13/16 16:42 Urine WBC (Auto) 133.0 /HPF (0.0-6.0) H 08/13/16 16:42 Urine RBC (Auto) 5.0 /HPF (0.0-6.0) 08/13/16 16:42 U Epithel Cells (Auto) 1.0 /HPF (0-13.0) 08/13/16 16:42 Urine Bacteria (Auto) 4+ /HPF (Negative) 08/13/16 16:42 Urine Mucus Few /HPF 08/13/16 16:42 Random Vancomycin 8.6 ug/mL (0-40.0) 08/17/16 06:47 Blood Type B POSITIVE 08/20/16 11:11 Antibody Screen Negative 08/20/16 11:11 Crossmatch See Detail 08/20/16 11:11
[2016-09-01] MEDS: ROCEPHIN/NS 1 GM/50 ML 1 GM/50 ML BAG IV SCH (18:10)
[2016-09-02] MEDS: MORPHINE IV PRN (02:24)
[2016-09-02] MEDS: PHOS-NAK PO SCH ×2 (06:04→14:20)
[2016-09-02] MEDS: NORCO 5/325 PO PRN ×3 (08:10→14:20)
[2016-09-02] MEDS: MAG-OX PO SCH ×2 (08:28→09:15)
--- NOTE | 2016-09-02 10:47 | Discharge Summary ---
Providers - Providers Date of Admission: 08/13/16 18:19 Date of discharge: 09/02/16 Attending physician: NERY MIHCAELS MD 08/13/16 20:03 Consult to Dietitian/Nutrition [CONS] Stat Physician Instructions: Reason For Exam: Reason for Consult: Malnutrition Speech Therapy Evaluation and Treat [CONS] Routine Reason For Exam: not eating 08/18/16 10:49 Consult to PICC Line RN [CONS] Routine Reason For Exam: iv access Type Line:: PICC 08/18/16 11:29 Consult to Physician [CONS] Routine Consulting Provider: DACIA SETH Reason For Exam: sepsis, ARF Place consult to:: Dr. Seth Notified:: Zina RN Phone number called:: Was contact made?: Yes If yes, spoke with:: Gladys-Office Time called:: 11:58 08/19/16 12:59 Consult to Dietitian/Nutrition [CONS] Routine Physician Instructions: Reason For Exam: Reason for Consult: Write/Manage Tube Feeding 08/20/16 10:18 Consult to Physician [CONS] Routine Consulting Provider: [facility] Reason For Exam: PEG tube placement Place consult to:: GI Notified:: office Phone number called:: [phone] Was contact made?: Yes Time called:: 10:38 Comment:: salima 08/22/16 10:48 Consult to Dietitian/Nutrition [CONS] Stat Physician Instructions: bg decreased to 20 Reason For Exam: projectile vomiting and dirrhea after feeding bega Reason for Consult: re-evaluation Primary care physician: RUBY RICE Hospitalization Reason for admission: Sepsis, Encephalopathy Condition: Stable Hospital course: 71-year-old -[place] female was transferred from detention with severe sepsis, metabolic encephalopathy, acute renal failure. Patient was admitted and treated with IV antibiotics, supportive care, IV fluid. Nephrology was consult appreciated. GI placed PEG. Patient was transferred back to the detention with stable condition. Disposition: DISCHARGED TO HOME OR SELFCARE Time spent for discharge: 31 minutes - Discharge Diagnoses (1) Acute renal failure Status: Acute Qualifiers: Acute renal failure type: with other specified pathological lesion Qualified Code(s): N17.8 - Other acute kidney failure (2) Encephalopathy acute Status: Acute (3) Sepsis Status: Resolved Qualifiers: Sepsis type: Streptococcus group B Qualified Code(s): A40.1 - Sepsis due to streptococcus, group B Core Measure Documentation - Palliative Care Palliative Care/ Comfort Measures: Not Applicable - Core Measures Any of the following diagnoses?: none Exam - Physical Exam Narrative exam: Not in cardiopulmonary distress. Patient is alert Cachectic patient lying on the bed Vital signs as documented. Head exam is unremarkable. No scleral icterus . Neck is without jugular venous distension, thyromegaly, or carotid bruits. Lungs are clear to auscultation. Cardiac exam reveals regular rate and Rhythm. First and second heart sounds normal. No murmurs, rubs or gallops. Abdominal examPEG in place. Extremities no edema. 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 - Constitutional Vitals: Temp Pulse Resp BP Pulse Ox 97.5 F L 84 16 140/70 95 09/02/16 06:19 09/02/16 08:34 09/02/16 06:19 09/02/16 06:19 09/02/16 06:19 Plan Activity: advance as tolerated Weight Bearing Status: Weight Bear as Tolerated Diet: per dietitian instruction Follow up with: RUBY RICE MD [Primary Care Provider] - 7 Days
[2016-09-02] MEDS: D5W 1,000 ML IV SCH (12:07)
[2016-09-02 13:47] VITALS: BP 103/63
== END 2016-09-02 14:48 | disposition home or self-care (01) | DRG 871 ==
LOC: ED 12:09 → 3A 18:19 → 4A 08-14 06:14
PROVIDERS: ADMIT Internal Medicine; ATTEND Internal Medicine
PROC: 05H433Z Insertion of Infusion Device into Left Innominate Vein, Percutaneous Approach (ICD-10-PCS; 2016-08-18)
PROC: 0DH63UZ Insertion of Feeding Device into Stomach, Percutaneous Approach (ICD-10-PCS; principal; 2016-08-21)
PROC: 30233N1 Transfusion of Nonautologous Red Blood Cells into Peripheral Vein, Percutaneous Approach (ICD-10-PCS; 2016-08-21)
DX: A40.1 Sepsis due to streptococcus, group B (principal); E43 Unspecified severe protein-calorie malnutrition; G93.40 Encephalopathy, unspecified; G93.41 Metabolic encephalopathy; N17.9 Acute kidney failure, unspecified; N39.0 Urinary tract infection, site not specified; E87.0 Hyperosmolality and hypernatremia; N13.30 Unspecified hydronephrosis; E87.2 Acidosis; Z68.1 Body mass index [BMI] 19.9 or less, adult; E87.5 Hyperkalemia; R62.7 Adult failure to thrive; R26.9 Unspecified abnormalities of gait and mobility; K21.9 Gastro-esophageal reflux disease without esophagitis; I10 Essential (primary) hypertension; E78.5 Hyperlipidemia, unspecified; M06.9 Rheumatoid arthritis, unspecified; R65.20 Severe sepsis without septic shock; E87.6 Hypokalemia; E86.0 Dehydration; D64.9 Anemia, unspecified; R13.10 Dysphagia, unspecified; K44.9 Diaphragmatic hernia without obstruction or gangrene; K29.70 Gastritis, unspecified, without bleeding; D69.6 Thrombocytopenia, unspecified; E83.42 Hypomagnesemia; Z86.718 Personal history of other venous thrombosis and embolism; Z86.73 Personal history of transient ischemic attack (TIA), and cerebral infarction without residual deficits
CPT/HCPCS: 36415; 71010; 74000; 74022; 74176; 76770; 80048; 80053; 80202; 81001; 82140; 82550; 82962; 83735; 83880; 84100; 84295; 85007; 85018; 85025; 85027; 85610; 86850; 86900; 86901; 86920; 87040; 87086; 96365; 96375; G8996-GN; G8997-GN; J0690; J0692; J0696; J1956; J2060; J2250; J2270; J2405; J2543; J3010; J3370; J3475; J3480; J7030; J7040; J7042; J7070; P9016